=== PATIENT | male | born 1970 | race Caucasian/White ===

== ENCOUNTER 2022-01-24 09:30 | Outpatient (RCR) | payer OTHER, SELFPAY ==
[2022-01-10 09:57] VITALS: BP 137/76; PULSE 62; RESP 17; TEMP 36; BMI 49.4
--- NOTE | 2022-01-10 11:17 | HP.PCM_ITS ---
History of Present Illness Date of Service: 01/10/22 Chief Complaint: Left lower extremity ulcerations History of Wound: This is a 51-year-old morbidly obese male with multiple pre- existing medical problems. Presents with ulcerations on the medial aspect of his left calf, which have been present for approximately 3 to 4 weeks. They occurred spontaneously. He has previously suffered from ulcerations in his lower extremities, which occurred as a result of chronic venous insufficiency. Prior ulcerations have healed spontaneously. The patient has been using topical preparations such as chlorhexidine and Betadine. He has been treated by his primary care physician with courses of oral Keflex and tetracycline, which have been completed. He experiences swelling in both lower extremities, which is said to be worse at the end of each day. His swelling has occurred for many years. He sleeps on a flat mattress at night. He is active, and seeks exercise by means of swimming. He denies a history of thrombophlebitis. In recent months, the patient has lost approximately 65 pounds purposefully. 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 Recently, the patient's primary care physician increased his dose of Lasix in an attempt to address issues related to lower extremity swelling. FORMERLY [facility], [facility] Medical History Chronic venous insufficiency of lower extremity Diabetes mellitus Fatty liver History of gastrointestinal hemorrhage History of gout History of hemorrhoids History of vertigo Hyperpigmentation Hypertension Hypertriglyceridemia Hypothyroidism Left leg swelling Leg ulcer, left Lipodermatosclerosis of both lower extremities Morbid obesity with BMI of 45.0-49.9, adult Right leg swelling Venous ulcer of left leg Home Medications allopurinol 300 mg tablet 300 mg PO DAILY 01/10/22 [History Last Taken Unknown] clonidine HCl 0.2 mg tablet 0.2 mg PO BID 01/10/22 [History Last Taken Unknown] diltiazem HCl 360 mg PO/SL DAILY 01/10/22 [History Last Taken Unknown] fluoxetine 40 mg capsule (Prozac) 40 mg PO DAILY 01/10/22 [History Last Taken Unknown] furosemide 40 mg tablet (Lasix) 40 mg PO BID 01/10/22 [History Last Taken Unk nown] levothyroxine 25 mcg capsule 25 mcg PO DAILY 01/10/22 [History Last Taken Unknown] losartan 100 mg tablet 100 mg PO DAILY 01/10/22 [History Last Taken Unknown] metoprolol succinate 100 mg tablet,extended release 24 hr 100 mg PO 1XD 01/10/22 [History Last Taken Unknown] Allergy/AdvReac Type Severity Reaction Status Date / Time ibuprofen Allergy Other Verified 01/10/22 10:50 aripiprazole [From Abilify] AdvReac Other Verified 01/10/22 10:50 Vital Signs Vital Signs Vital Signs: 01/10/22 09:57 Temperature 96.8 F L Temperature Source Temporal Pulse Rate 62 Respiratory Rate 17 Blood Pressure 137/76 H Blood Pressure Mean 96 Blood Pressure Source Monitor Weight Weight: 395 lb 13.214 oz Body Mass Index (BMI) 49.4 Physical Exam Const alert, oriented x3, no apparent distress and well nourished Constitutional Narrative: The patient is morbidly obese. General Appearance: cooperative, comfortable, well kempt and well developed Orientation / Consciousness: awake, oriented to person, oriented to place and oriented to time Exam Limitations: no limitations HEENT normocephalic, head/scalp atraumatic and hearing grossly normal bilaterally Head and Scalp: normal to inspection, normocephalic and atraumatic External Ear: external ears normal Eyes PERRL and EOMs intact bilaterally General Eye: normal appearance of both eyes Resp normal respiratory effort, normal air movement, no retractions and no use of accessory muscles Effort and Inspection: able to speak in complete sentences GI GI Narrative: The abdomen is obese. Rectal Exam: deferred Extremity no calf tenderness General Extremity: Negative for clubbing or cyanosis Skin Wound Narrative: 2 superficial ulcerations are noted on the left medial calf. Dimensions are documented elsewhere. There is no sign of infection or cellulitis. There is a moderate amount of bioburden. Hyperpigmentation and lipodermatosclerosis are noted in the gaiter areas bilaterally, rather severe in nature. Mild swelling and edema are noted bilaterally in the lower extremities. Neuro oriented x3, CN's II-XII intact bilaterally and moves all extremities Sensorium / Orientation: awake, alert, oriented to person, oriented to place and oriented to time Psych Appearance: grossly normal and appropriate Attitude: calm Activity / Motor Behavior: appropriate eye contact Speech: normal speech Mood & Affect: euthymic mood Thought Process: normal thought process Thought Content: normal thought content Attention / Concentration: attention grossly intact Debridement Note Debridement Note Wound debrided: Left medial calf Laterality: Left Type of Debridement: Excisional debridement Anesthesia Used: 5% Lidocaine Gel Depth: Down to and including healthy tissue and in the subcutaneous layer Percentage of wound debrided: 100 Instrument Used: 7mm curette Tissue Removed: Bioburden Severity: Fat Layer Exposed Amount of bleeding with debridement: Mild Bleeding Controlled with: Compression and gauze Patient tolerated procedure: Patient tolerated procedure well Post-Debridement Measurements and Additional Note: Post-Debridement Measurements/Treatment - Nurse 1 - General Ulcer Assessment Start: 01/10/22 09:56 Freq: Status: Active Protocol: [employer] Activity Type Activity Date Activity User E-sign Co-sign Detail Recorded Client Recorded Date Recorded By Document 01/10/22 09:57 ML [id number] 01/10/22 10:22 ML Edit Result 01/10/22 09:57 ML (1) [id number] 01/10/22 10:31 ML (1) Height => 6 ft 3 in Weight => 395 lb 13.214 oz Weight in Pounds => 395.8 lbs Body Mass Index (BMI) => 49.4 BMI Classification => Obese BSA - Carline => 2.93 01/10/22 09:57 - Today's Visit Information Type of service Initial Visit Arrival Mode Ambulatory Transfer Assistance None Patient Requires Transmission-Based No Precautions Safety Precautions NA Height and Weight Height 6 ft 3 in Weight 395 lb 13.214 oz Weight in Pounds 395.8 lbs Body Mass Index (BMI) 49.4 BMI Classification Obese BSA - Carline 2.93 Vital Signs Temperature (97.8 F-99.1 F) 96.8 F L Temperature Source Temporal Pulse Rate (60-100) 62 Pulse Location Monitor Respiratory Rate (12-18) 17 Respiratory rate source Monitor Blood Pressure (90/60-120/80) 137/76 H Blood Pressure Mean 96 Source Monitor History Since Last Visit- (Skip if this is Patient's initial visit) Have you changed medications since your No last visit? Any new allergies or adverse reactions No Had a fall/change in ADL's that may No increase risk of falls Signs or symptoms of abuse and/or No neglect since last visit Have you been in the hospital since your No last visit? Has dressing in place as prescribed No Has compression in place as prescribed Yes Has offloadiing in place as prescribed N/A Experienced any changes in pain level or No management Left Footwear Regular Shoe Right Footwear Regular Shoe Pain Scale: 0-10 Numeric Is Patient Pain Free? Yes - Nurse 1 - General Ulcer Measurement Start: 01/10/22 09:56 Freq: Status: Active Protocol: Activity Type Activity Date Activity User E-sign Co-sign Detail Recorded Client Recorded Date Recorded By Document 01/10/22 09:57 ML [id number] 01/10/22 10:22 ML 01/10/22 09:57 Wound Center Nurse 1 #1 SUP LLE -Current Size (cm) - Length 6.8 -Current Size (cm) - Width 1 -Current Size (cm) - Depth 0.1 -Total Square Cm 6.8 -Exudate Amt Small -Exudate Type Serous -Wound Margin Distinct, Outline Attached -Granulation Amt Small (1-33%) -Granulation Quality Pale -Slough/Fibrin No -Necrosis Amt None Present (0 %) -Necrotic Tissue Type Adherent Slough -Texture (Mahnaz-wound Skin Appearance) Assessed -Moisture (Mahnaz-wound Skin Appearance) Assessed -Color (Mahnaz-wound Skin Appearance) Hemosiderin Staining -Temperature (Mahnaz-wound Skin No Abnormality Appearance) (Pt Warm) -Tenderness on Palpation (Mahnaz-wound No Skin Appearance) -Ulcer Cleansing Rinsed/ Irrigated with Saline -Foul Odor after Cleansing No -Anesthetic Used 4% Lidocaine Solution Right Calf (cm) 46.5 Right Ankle (cm) 25 Left Calf (cm) 47 Left Ankle (cm) 26 - Nurse 3 - General Ulcer D/C NN Start: 01/10/22 09:56 Freq: Status: Active Protocol: Activity Type Activity Date Activity User E-sign Co-sign Detail Recorded Client Recorded Date Recorded By Document 01/10/22 11:03 ML [id number] 01/10/22 11:04 ML 01/10/22 11:03 Wound Care Nurse 3 Right -Multi-Layered Wrap Application Multi-Layer Comp - Left ($) Left -Compression Wrap Unna Boot ($) ( single) Pain Scale: 0-10 Numeric Is Patient Pain Free? Yes Assessment/Plan Assessment/Plan (1) Leg ulcer, left: CODE(S): L97.929 - Non-pressure chronic ulcer of unspecified part of left lower leg with unspecified severity (2) Venous ulcer of left leg: CODE(S): I83.029 - Varicose veins of left lower extremity with ulcer of unspecified site; L97.929 - Non-pressure chronic ulcer of unspecified part of left lower leg with unspecified severity (3) Left leg swelling: CODE(S): M79.89 - Other specified soft tissue disorders (4) Right leg swelling: CODE(S): M79.89 - Other specified soft tissue disorders (5) Hyperpigmentation: CODE(S): L81.9 - Disorder of pigmentation, unspecified (6) Lipodermatosclerosis of both lower extremities: CODE(S): I83.11 - Varicose veins of right lower extremity with inflammation; I83.12 - Varicose veins of left lower extremity with inflammation (7) Morbid obesity with BMI of 45.0-49.9, adult: CODE(S): E66.01 - Morbid (severe) obesity due to excess calories; Z68.42 - Body mass index [BMI] 45.0-49.9, adult (8) Hypertension: CODE(S): I10 - Essential (primary) hypertension (9) Chronic venous insufficiency of lower extremity: CODE(S): I87.2 - Venous insufficiency (chronic) (peripheral) (10) Diabetes mellitus: CODE(S): E11.9 - Type 2 diabetes mellitus without complications (11) Hypothyroidism: CODE(S): E03.9 - Hypothyroidism, unspecified (12) Hypertriglyceridemia: CODE(S): E78.1 - Pure hyperglyceridemia (13) History of gout: CODE(S): Z87.39 - Personal history of other diseases of the musculoskeletal system and connective tissue (14) Fatty liver: CODE(S): K76.0 - Fatty (change of) liver, not elsewhere classified (15) History of vertigo: CODE(S): Z87.898 - Personal history of other specified conditions (16) History of gastrointestinal hemorrhage: CODE(S): Z87.19 - Personal history of other diseases of the digestive system (17) History of hemorrhoids: CODE(S): Z87.19 - Personal history of other diseases of the digestive system PLAN: Plan This is a 51-year-old male who is morbidly obese, and with a history of multiple pre-existing medical problems. He has a longstanding history of swelling and edema in his lower extremities, and has had prior episodes of spontaneous ulcerations in his lower extremities, thought to be secondary to chronic venous insufficiency. His current ulcerations have been present for approximately 3 to 4 weeks, located in the left medial calf. A lengthy discussion has been undertaken as to the conservative treatment measures appropriate to the patient's management. The patient sleeps on a flat mattress at night. This has been encouraged. Additionally, the patient has been advised to elevate his lower extremities is much as possible during daytime hours. Leg elevation is to be to heart level, or higher. Prolonged idle sitting has been discouraged. Activity has been encouraged. Weight loss has also been recommended. It is noted that the patient has voluntarily and purposely lost approximately 65 pounds in recent months. The patient has only occasional discomfort and pain in his lower extremities, and nonsteroidal anti-inflammatory medications have been advised. Compression is to be initiated by means of a 3M 2 layer compression wrap in the right lower extremity, which has no open wounds at this time. A multilayer Unna boot is to be applied to the left lower extremity. These compression wraps will be changed twice weekly. Patient is to return in 1 week for reassessment. Long-term lifestyle modification has been discussed, im plementing these measures as discussed above in an effort to prevent recurrence of ulcerations in his lower extremities. Total time: 59 minutes
[2022-01-13 13:06] VITALS: BP 136/75; PULSE 82; RESP 18; TEMP 35.9; BMI 49.4
[2022-01-17 09:32] VITALS: BP 157/71; PULSE 64; TEMP 36.6; BMI 49.4
--- NOTE | 2022-01-17 09:54 | PCM.WC.HP ---
History of Present Illness Date of Service: 01/17/22 Chief Complaint: Left lower extremity ulcerations History of Wound: This is a 51-year-old morbidly obese male with multiple pre-existing medical problems. Presents with ulcerations on the medial aspect of his left calf, which have been present for approximately 3 to 4 weeks. They occurred spontaneously. He has previously suffered from ulcerations in his lower extremities, which occurred as a result of chronic venous insufficiency. Prior ulcerations have healed spontaneously. The patient has been using topical preparations such as chlorhexidine and Betadine. He has been treated by his primary care physician with courses of oral Keflex and tetracycline, which have been completed. He experiences swelling in both lower extremities, which is said to be worse at the end of each day. His swelling has occurred for many years. He sleeps on a flat mattress at night. He is active, and seeks exercise by means of swimming. He denies a history of thrombophlebitis. In recent months, the patient has lost approximately 65 pounds purposefully. 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 Recently, the patient's primary care physician increased his dose of Lasix in an attempt to address issues related to lower extremity swelling. [facility] Medical History Chronic venous insufficiency of lower extremity Diabetes mellitus Fatty liver History of gastrointestinal hemorrhage History of gout History of hemorrhoids History of vertigo Hyperpigmentation Hypertension Hypertriglyceridemia Hypothyroidism Left leg swelling Leg ulcer, left Lipodermatosclerosis of both lower extremities Morbid obesity with BMI of 45.0-49.9, adult Right leg swelling Venous ulcer of left leg Home Medications allopurinol 300 mg tablet 300 mg PO DAILY 01/10/22 [History Last Taken Unknown] clonidine HCl 0.2 mg tablet 0.2 mg PO BID 01/10/22 [History Last Taken Unknown] diltiazem HCl 360 mg PO/SL DAILY 01/10/22 [History Last Taken Unknown] fluoxetine 40 mg capsule (Prozac) 40 mg PO DAILY 01/10/22 [History Last Taken Unknown] furosemide 40 mg tablet (Lasix) 40 mg PO BID 01/10/22 [History Last Taken Unknown] levothyroxine 25 mcg capsule 25 mcg PO DAILY 01/10/22 [History Last Taken Unknown] losartan 100 mg tablet 100 mg PO DAILY 01/10/22 [History Last Taken Unknown] metoprolol succinate 100 mg tablet,extended release 24 hr 100 mg PO 1XD 01/10/22 [History Last Taken Unknown] Allergy/AdvReac Type Severity Reaction Status Date / Time ibuprofen Allergy Other Verified 01/10/22 10:50 aripiprazole [From Abilify] AdvReac Other Verified 01/10/22 10:50 Vital Signs Vital Signs Vital Signs: 01/17/22 09:32 Temperature 97.8 F Temperature Source Temporal Pulse Rate 64 Blood Pressure 157/71 H Blood Pressure Mean 99 Blood Pressure Source Monitor Blood Pressure Position Semi-Fowlers Blood Pressure Location Right Arm Weight Weight: 395 lb 13.214 oz Body Mass Index (BMI) 49.4 Physical Exam Const alert, oriented x3, no apparent distress and well nourished Constitutional Narrative: The patient is morbidly obese. General Appearance: cooperative, comfortable, well kempt and well developed Orientation / Consciousness: awake, oriented to person, oriented to place and oriented to time Exam Limitations: no limitations HEENT normocephalic, head/scalp atraumatic and hearing grossly normal bilaterally Head and Scalp: normal to inspection, normocephalic and atraumatic External Ear: external ears normal Eyes PERRL and EOMs intact bilaterally General Eye: normal appearance of both eyes Resp normal respiratory effort, normal air movement, no retractions and no use of accessory muscles Effort and Inspection: able to speak in complete sentences GI GI Narrative: The abdomen is obese. Rectal Exam: deferred Extremity no calf tenderness General Extremity: Negative for clubbing or cyanosis Skin Wound Narrative: Two superficial ulcerations are noted on the left heath-medial calf. Dimensions are documented elsewhere. They are smaller than the last week. There is no sign of infection or cellulitis. There is a moderate amount of bioburden. Hyperpigmentation and lipodermatosclerosis are noted in the gaiter areas bilaterally, rather severe in nature. Mild swelling and edema are noted bilaterally in the lower extremities, though much improved within the last week. Neuro oriented x3, CN's II-XII intact bilaterally, moves all extremities and no focal motor deficits Sensorium / Orientation: awake, alert, oriented to person, oriented to place and oriented to time Psych Appearance: grossly normal and appropriate Attitude: calm Activity / Motor Behavior: appropriate eye contact Speech: normal speech Mood & Affect: euthymic mood Thought Process: normal thought process Thought Content: normal thought content Attention / Concentration: attention grossly intact Debridement Note Debridement Note Wound debrided: Left anteromedial calf Laterality: Left Type of Debridement: Excisional debridement Anesthesia Used: 5% Lidocaine Gel Depth: Down to and including healthy tissue and in the subcutaneous layer Percentage of wound debrided: 100 Instrument Used: 5mm curette Severity: Fat Layer Exposed Amount of bleeding with debridement: Mild Bleeding Controlled with: Compression and gauze Patient tolerated procedure: Patient tolerated procedure well Post-Debridement Measurements and Additional Note: Post-Debridement Measurements/Treatment - Nurse 1 - General Ulcer Assessment Start: 01/10/22 09:56 Freq: Status: Active Protocol: PathJump Activity Type Activity Date Activity User E-sign Co-sign Detail Recorded Client Recorded Date Recorded By Document 01/10/22 09:57 ML [id number] 01/10/22 10:22 ML Edit Result 01/10/22 09:57 ML (1) [id number] 01/10/22 10:31 ML Document 01/13/22 13:06 RB [id number] 01/13/22 13:11 RB Document 01/17/22 09:32 KR [id number] 01/17/22 09:33 KR (1) Height => 6 ft 3 in Weight => 395 lb 13.214 oz Weight in Pounds => 395.8 lbs Body Mass Index (BMI) => 49.4 BMI Classification => Obese BSA - Carline => 2.93 01/10/22 01/13/22 01/17/22 09:57 13:06 09:32 - Today's Visit Information Type of service Initial Visit Nurse-only Follow-up Visit Visit (Physician/[facility] ) Arrival Mode Ambulatory Ambulatory Ambulatory Transfer Assistance None None Patient Identification Verified (Name & Yes Yes ) Patient Requires Transmission-Based No No Precautions Safety Precautions NA Height and Weight Height 6 ft 3 in Weight 395 lb 13.214 oz Weight in Pounds 395.8 lbs Body Mass Index (BMI) 49.4 49.4 49.4 BMI Classification Obese Obese Obese BSA - Carline 2.93 Vital Signs Temperature (97.8 F-99.1 F) 96.8 F L 96.6 F L 97.8 F Temperature Source Temporal Temporal Temporal Pulse Rate (60-100) 62 82 64 Pulse Location Monitor Monitor Monitor Respiratory Rate (12-18) 17 18 Respiratory rate source Monitor Observation Blood Pressure (90/60-120/80) 137/76 H 136/75 H 157/71 H Blood Pressure Mean 96 95 99 Source Monitor Monitor Monitor Position Semi-Fowlers Semi-Fowlers Blood Pressure Location Left Arm Right Arm History Since Last Visit- (Skip if this is Patient's initial visit) Have you changed medications since your No No No last visit? Any new allergies or adverse reactions No No No Had a fall/change in ADL's that may No No No increase risk of falls Signs or symptoms of abuse and/or No No No neglect since last visit Have you been in the hospital since your No No No last visit? Has dressing in place as prescribed No Yes Yes Has compression in place as prescribed Yes Yes Yes Has offloadiing in place as prescribed N/A No N/A Experienced any changes in pain level or No No No management Left Footwear Regular Shoe Regular Shoe Right Footwear Regular Shoe Regular Shoe Pain Scale: 0-10 Numeric Is Patient Pain Free? Yes Yes Yes WC - Nurse 1 - General Ulcer Measurement Start: 01/10/22 09:56 Freq: Status: Active Protocol: Activity Type Activity Date Activity User E-sign Co-sign Detail Recorded Client Recorded Date Recorded By Document 01/10/22 09:57 ML [id number] 01/10/22 10:22 ML Document 01/17/22 09:32 KR [id number] 01/17/22 09:33 KR 01/10/22 01/17/22 09:57 09:32 Wound Center Nurse 1 #1 SUP LLE -Current Size (cm) - Length 6.8 5.5 -Current Size (cm) - Width 1 5.5 -Current Size (cm) - Depth 0.1 0.1 -Total Square Cm 6.8 30.25 -Exudate Amt Small Medium -Exudate Type Serous Serosanguineous -Wound Margin Distinct, Distinct, Outline Outline Attached Attached -Granulation Amt Small (1-33%) Large (67-100%) -Granulation Quality Pale Red -Slough/Fibrin No -Necrosis Amt None Present (0 None Present (0 %) %) -Necrotic Tissue Type Adherent Slough -Texture (Mahnaz-wound Skin Appearance) Assessed Assessed, Scarring -Moisture (Mahnaz-wound Skin Appearance) Assessed No Abnormality, Assessed -Color (Mahnaz-wound Skin Appearance) Hemosiderin No Abnormality, Staining Assessed -Temperature (Mahnaz-wound Skin No Abnormality No Abnormality Appearance) (Pt Warm) (Pt Warm) -Tenderness on Palpation (Mahnaz-wound No No Skin Appearance) -Ulcer Cleansing Rinsed/ Soap and Water Irrigated with Saline -Foul Odor after Cleansing No No -Anesthetic Used 4% Lidocaine 5% Lidocaine Solution Gel Right Calf (cm) 46.5 45 Right Ankle (cm) 25 25.5 Left Calf (cm) 47 46 Left Ankle (cm) 26 25.5 WC - Nurse 2 - General Ulcer CM Notes Start: 01/10/22 09:56 Freq: Status: Active Protocol: Activity Type Activity Date Activity User E-sign Co-sign Detail Recorded Client Recorded Date Recorded By Document 01/10/22 11:17 PL [id number] 01/10/22 11:19 PL 01/10/22 11:17 Wound Center Nurse 2 #1 SUP LLE -Time 10:33 -Correct Patient Yes -Correct Side, Site, Position Yes -Correct Procedure Yes -Procedure Performed Yes -Type of Procedure Debridement -Clinical Debridement Subcutaneous -Tissue Removed Subcutaneous -Post Debridement (cm) - Length 6.8 -Post Debridement (cm) - Width 1.0 -Post Debridement (cm) - Depth 0.1 -Total Square (Post) (cm) 6.80 -Area of Debridement (cm) - Length 6.8 -Area of Debridement (cm) - Width 1.0 -Total Square (Area) (cm) 6.80 -Tunneling No -Undermining/Tunneling No -Circular Undermining No -Wound/Ulcer Outcome Not Healed -Ulcer Cleansing Rinsed/ Irrigated with Saline -Foul Odor after Cleansing No -Bioengineered Tissue No -Bleeding Controlled with Pressure -Treatment Response Procedure Tolerated Well -Debridement - Subq, 1st 20sq cm Yes Pain Scale: 0-10 Numeric Is Patient Pain Free? Yes - Nurse 3 - General Ulcer D/C NN Start: 01/10/22 09:56 Freq: Status: Active Protocol: Activity Type Activity Date Activity User E-sign Co-sign Detail Recorded Client Recorded Date Recorded By Document 01/10/22 11:03 ML [id number] 01/10/22 11:04 ML Edit Result 01/10/22 11:03 ML (1) [id number] 01/11/22 07:25 PL Document 01/13/22 13:06 RB [id number] 01/13/22 13:11 RB (1) Left - Multi-Layered Wrap Application => Unna Boot - Left ( => $) - Compression Wrap Unna Boot ($) ( => single) => 01/10/22 01/13/22 11:03 13:06 Wound Care Nurse 3 #1 SUP LLE -Primary Dressing Applied Optilok 6.5x10 -Optilok 6.5x10 1 Right -Multi-Layered Wrap Application Multi-Layer Multi-Layer Comp - Left ($) Comp - Right ($ ) Left -Multi-Layered Wrap Application Unna Boot - Unna Boot - Left ($) Left ($) Treatment Response Procedure Tolerated Well Vital Signs Temperature (97.8 F-99.1 F) 96.6 F L Temperature Source Temporal Pulse Rate (60-100) 82 Pulse Location Monitor Respiratory Rate (12-18) 18 Respiratory rate source Observation Blood Pressure (90/60-120/80) 136/75 H Blood Pressure Mean 95 Source Monitor Position Semi-Fowlers Blood Pressure Location Left Arm Pain Scale: 0-10 Numeric Is Patient Pain Free? Yes Yes WC - Visit Discharge Discharge Condition Stable Ambulatory Status Ambulatory Transportation Private Auto Medication Reconcilliation completed & No provided to patient/care provider Clinical Summary of Care Provided Yes Assessment/Plan Assessment/Plan (1) Leg ulcer, left: CODE(S): L97.929 - Non-pressure chronic ulcer of unspecified part of left lower leg with unspecified severity (2) Venous ulcer of left leg: CODE(S): I83.029 - Varicose veins of left lower extremity with ulcer of unspecified site; L97.929 - Non-pressure chronic ulcer of unspecified part of left lower leg with unspecified severity (3) Left leg swelling: CODE(S): M79.89 - Other specified soft tissue disorders (4) Right leg swelling: CODE(S): M79.89 - Other specified soft tissue disorders (5) Hyperpigmentation: CODE(S): L81.9 - Disorder of pigmentation, unspecified (6) Lipodermatosclerosis of both lower extremities: CODE(S): I83.11 - Varicose veins of right lower extremity with inflammation; I83.12 - Varicose veins of left lower extremity with inflammation (7) Morbid obesity with BMI of 45.0-49.9, adult: CODE(S): E66.01 - Morbid (severe) obesity due to excess calories; Z68.42 - Body mass index [BMI] 45.0-49.9, adult (8) Hypertension: CODE(S): I10 - Essential (primary) hypertension (9) Chronic venous insufficiency of lower extremity: CODE(S): I87.2 - Venous insufficiency (chronic) (peripheral) (10) Diabetes mellitus: CODE(S): E11.9 - Type 2 diabetes mellitus without complications (11) Hypothyroidism: CODE(S): E03.9 - Hypothyroidism, unspecified (12) Hypertriglyceridemia: CODE(S): E78.1 - Pure hyperglyceridemia (13) History of gout: CODE(S): Z87.39 - Personal history of other diseases of the musculoskeletal system and connective tissue (14) Fatty liver: CODE(S): K76.0 - Fatty (change of) liver, not elsewhere classified (15) History of vertigo: CODE(S): Z87.898 - Personal history of other specified conditions (16) History of gastrointestinal hemorrhage: CODE(S): Z87.19 - Personal history of other diseases of the digestive system (17) History of hemorrhoids: CODE(S): Z87.19 - Personal history of other diseases of the digestive system PLAN: Plan This is a 51-year-old male who is morbidly obese, and with a history of multiple pre-existing medical problems. He has a longstanding history of swelling and edema in his lower extremities, and has had prior episodes of spontaneous ulcerations in his lower extremities, thought to be secondary to chronic venous insufficiency. His current ulcerations have been present for approximately 3 to 4 weeks, located in the left medial calf. A lengthy discussion has been undertaken as to the conservative treatment measures appropriate to the patient's management. The patient sleeps on a flat mattress at night. This has been encouraged. Additionally, the patient has been advised to elevate his lower extremities is much as possible during daytime hours. Leg elevation is to be to heart level, or higher. Prolonged idle sitting has been discouraged. Activity has been encouraged. Weight loss has also been recommended. It is noted that the patient has voluntarily and purposely lost approximately 65 pounds in recent months. The patient has only occasional discomfort and pain in his lower extremities, and nonsteroidal anti-inflammatory medications have been advised. Compression is to be continued by means of a 3M 2 layer compression wrap in the right lower extremity, which has no open wounds at this time. A multilayer Unna boot is to be applied to the left lower extremity. These compression wraps will be changed twice weekly. The patient is to return in 1 week for reassessment. Long-term lifestyle modification has been discussed, implementing these measures as discussed above in an effort to prevent recurrence of ulcerations in his lower extremities. Long-term compression options have been discussed, and the patient informs that he has knee-high graduated compression stockings at home which are 30 to 40 mmHg compression. He has several pairs which are still in the box, unused. He has been advised to bring these to his next appointment where appropriate sizing can be confirmed, and with confirmation of the appropriate degree of compression. Ultimately, once his left lower extremity ulcerations have healed, a long-term means of compression will be required. Total time: 29 minutes
[2022-01-20 13:43] VITALS: TEMP 36.1; BMI 49.4
[2022-01-24 09:36] VITALS: BP 177/86; PULSE 66; TEMP 36.1; BMI 49.4
--- NOTE | 2022-01-24 13:15 | PCM.WC.HP ---
History of Present Illness Date of Service: 01/24/22 Chief Complaint: Left lower extremity ulcerations History of Wound: This is a 51-year-old morbidly obese male with multiple pre-existing medical problems. Presented with ulcerations on the medial aspect of his left calf, which had been present for approximately 3 to 4 weeks. They occurred spontaneously. He has previously suffered from ulcerations in his lower extremities, which occurred as a result of chronic venous insufficiency. Prior ulcerations have healed spontaneously. The patient had been using topical preparations such as chlorhexidine and Betadine. He had been treated by his primary care physician with courses of oral Keflex and tetracycline, which have been completed. He experiences swelling in both lower extremities, which is said to be worse at the end of each day. His swelling has occurred for many years. He sleeps on a flat mattress at night. He is active, and seeks exercise by means of swimming. He denies a history of thrombophlebitis. In recent months, the patient has lost approximately 65 pounds purposefully. 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 Recently, the patient's primary care physician increased his dose of Lasix in an attempt to address issues related to lower extremity swelling. [facility] Medical History Chronic venous insufficiency of lower extremity Diabetes mellitus Fatty liver History of gastrointestinal hemorrhage History of gout History of hemorrhoids History of vertigo Hyperpigmentation Hypertension Hypertriglyceridemia Hypothyroidism Left leg swelling Leg ulcer, left Lipodermatosclerosis of both lower extremities Morbid obesity with BMI of 45.0-49.9, adult Right leg swelling Venous ulcer of left leg Home Medications allopurinol 300 mg tablet 300 mg PO DAILY 01/10/22 [History Last Taken Unknown] clonidine HCl 0.2 mg tablet 0.2 mg PO BID 01/10/22 [History Last Taken Unknown] diltiazem HCl 360 mg PO/SL DAILY 01/10/22 [History Last Taken Unknown] fluoxetine 40 mg capsule (Prozac) 40 mg PO DAILY 01/10/22 [History Last Taken Unknown] furosemide 40 mg tablet (Lasix) 40 mg PO BID 01/10/22 [History Last Taken Unknown] levothyroxine 25 mcg capsule 25 mcg PO DAILY 01/10/22 [History Last Taken Unknown] losartan 100 mg tablet 100 mg PO DAILY 01/10/22 [History Last Taken Unknown] metoprolol succinate 100 mg tablet,extended release 24 hr 100 mg PO 1XD 01/10/22 [History Last Taken Unknown] Allergy/AdvReac Type Severity Reaction Status Date / Time ibuprofen Allergy Other Verified 01/10/22 10:50 aripiprazole [From Abilify] AdvReac Other Verified 01/10/22 10:50 Vital Signs Vital Signs Vital Signs: 01/24/22 09:36 Temperature 97.0 F L Temperature Source Temporal Pulse Rate 66 Blood Pressure 177/86 H Blood Pressure Mean 116 Blood Pressure Source Monitor Blood Pressure Position Sitting Blood Pressure Location Right Arm Weight Weight: 395 lb 13.214 oz Body Mass Index (BMI) 49.4 Physical Exam Const alert, oriented x3, no apparent distress and well nourished Constitutional Narrative: The patient is morbidly obese. General Appearance: cooperative, comfortable, well kempt and well developed Orientation / Consciousness: awake, oriented to person, oriented to place and oriented to time Exam Limitations: no limitations HEENT normocephalic, head/scalp atraumatic and hearing grossly normal bilaterally Head and Scalp: normal to inspection, normocephalic and atraumatic External Ear: external ears normal Eyes PERRL and EOMs intact bilaterally General Eye: normal appearance of both eyes Resp normal respiratory effort, normal air movement, no retractions and no use of accessory muscles Effort and Inspection: able to speak in complete sentences GI GI Narrative: The abdomen is obese. Rectal Exam: deferred Extremity no calf tenderness General Extremity: Negative for clubbing or cyanosis Skin Wound Narrative: Only 1 very small ulceration is noted on the left pretibial area. Dimensions are documented elsewhere. There is no sign of infection or cellulitis. There is a small amount of bioburden. Hyperpigmentation and lipodermatosclerosis are noted in the gaiter areas bilaterally, rather severe in nature. The swelling and edema appear to be resolved, much improved as result of the previously implemented measures. Neuro oriented x3, CN's II-XII intact bilaterally, moves all extremities and no focal motor deficits Sensorium / Orientation: awake, alert, oriented to person, oriented to place and oriented to time Psych Appearance: grossly normal and appropriate Attitude: calm Activity / Motor Behavior: appropriate eye contact Speech: normal speech Mood & Affect: euthymic mood Thought Process: normal thought process Thought Content: normal thought content Attention / Concentration: attention grossly intact Debridement Note Debridement Note Wound debrided: Left pretibial ulceration Laterality: Left Type of Debridement: Excisional debridement Anesthesia Used: 5% Lidocaine Gel Depth: Down to and including healthy tissue and in the subcutaneous layer Percentage of wound debrided: 100 Instrument Used: 5mm curette Tissue Removed: Bioburden Severity: Fat Layer Exposed Amount of bleeding with debridement: Mild Bleeding Controlled with: Compression and gauze Patient tolerated procedure: Patient tolerated procedure well Post-Debridement Measurements and Additional Note: Post-Debridement Measurements/Treatment - Nurse 1 - General Ulcer Assessment Start: 01/10/22 09:56 Freq: Status: Active Protocol: .FarmDropAlexi Activity Type Activity Date Activity User E-sign Co-sign Detail Recorded Client Recorded Date Recorded By Document 01/10/22 09:57 ML [id number] 01/10/22 10:22 ML Edit Result 01/10/22 09:57 ML (1) [id number] 01/10/22 10:31 ML Document 01/13/22 13:06 RB [id number] 01/13/22 13:11 RB Document 01/17/22 09:32 KR [id number] 01/17/22 09:33 KR Document 01/20/22 13:43 AK [id number] 01/20/22 13:44 AK Document 01/24/22 09:36 KR [id number] 01/24/22 09:42 KR (1) Height => 6 ft 3 in Weight => 395 lb 13.214 oz Weight in Pounds => 395.8 lbs Body Mass Index (BMI) => 49.4 BMI Classification => Obese BSA - [place] => 2.93 01/10/22 01/13/22 01/17/22 09:57 13:06 09:32 - Today's Visit Information Type of service Initial Visit Nurse-only Follow-up Visit Visit (Physician/DOCUMENTATION SUPERVISOR ) Arrival Mode Ambulatory Ambulatory Ambulatory Transfer Assistance None None Patient Identification Verified (Name & Yes Yes ) Patient Requires Transmission-Based No No Precautions Safety Precautions NA Height and Weight Height 6 ft 3 in Weight 395 lb 13.214 oz Weight in Pounds 395.8 lbs Body Mass Index (BMI) 49.4 49.4 49.4 BMI Classification Obese Obese Obese BSA - [place] 2.93 Vital Signs Temperature (97.8 F-99.1 F) 96.8 F L 96.6 F L 97.8 F Temperature Source Temporal Temporal Temporal Pulse Rate (60-100) 62 82 64 Pulse Location Monitor Monitor Monitor Respiratory Rate (12-18) 17 18 Respiratory rate source Monitor Observation Blood Pressure (90/60-120/80) 137/76 H 136/75 H 157/71 H Blood Pressure Mean 96 95 99 Source Monitor Monitor Monitor Position Semi-Fowlers Semi-Fowlers Blood Pressure Location Left Arm Right Arm History Since Last Visit- (Skip if this is Patient's initial visit) Have you changed medications since your No No No last visit? Any new allergies or adverse reactions No No No Had a fall/change in ADL's that may No No No increase risk of falls Signs or symptoms of abuse and/or No No No neglect since last visit Have you been in the hospital since your No No No last visit? Has dressing in place as prescribed No Yes Yes Has compression in place as prescribed Yes Yes Yes Has offloadiing in place as prescribed N/A No N/A Experienced any changes in pain level or No No No management Left Footwear Regular Shoe Regular Shoe Right Footwear Regular Shoe Regular Shoe Pain Scale: 0-10 Numeric Is Patient Pain Free? Yes Yes Yes 01/20/22 01/24/22 13:43 09:36 WC - Today's Visit Information Type of service Nurse-only Follow-up Visit Visit (Physician/DOCUMENTATION SUPERVISOR ) Arrival Mode Ambulatory Ambulatory Transfer Assistance Patient Identification Verified (Name & Yes Yes ) Patient Requires Transmission-Based No Precautions Safety Precautions NA Height and Weight Height Weight Weight in Pounds Body Mass Index (BMI) 49.4 49.4 BMI Classification Obese Obese BSA - [place] Vital Signs Temperature (97.8 F-99.1 F) 96.9 F L 97.0 F L Temperature Source Temporal Temporal Pulse Rate (60-100) 66 Pulse Location Monitor Respiratory Rate (12-18) Respiratory rate source Blood Pressure (90/60-120/80) 177/86 H Blood Pressure Mean 116 Source Monitor Position Sitting Blood Pressure Location Right Arm History Since Last Visit- (Skip if this is Patient's initial visit) Have you changed medications since your No No last visit? Any new allergies or adverse reactions No No Had a fall/change in ADL's that may No No increase risk of falls Signs or symptoms of abuse and/or No No neglect since last visit Have you been in the hospital since your No No last visit? Has dressing in place as prescribed Yes Yes Has compression in place as prescribed Yes Yes Has offloadiing in place as prescribed N/A N/A Experienced any changes in pain level or No No management Left Footwear Regular Shoe Regular Shoe Right Footwear Regular Shoe Regular Shoe Pain Scale: 0-10 Numeric Is Patient Pain Free? Yes Yes WC - Nurse 1 - General Ulcer Measurement Start: 01/10/22 09:56 Freq: Status: Active Protocol: Activity Type Activity Date Activity User E-sign Co-sign Detail Recorded Client Recorded Date Recorded By Document 01/10/22 09:57 ML [id number] 01/10/22 10:22 ML Document 01/17/22 09:32 KR [id number] 01/17/22 09:33 KR Document 01/24/22 09:36 KR [id number] 01/24/22 09:42 KR 01/10/22 01/17/22 01/24/22 09:57 09:32 09:36 Wound Center Nurse 1 #1 SUP LLE -Current Size (cm) - Length 6.8 5.5 0.4 -Current Size (cm) - Width 1 5.5 0.4 -Current Size (cm) - Depth 0.1 0.1 0.1 -Total Square Cm 6.8 30.25 0.16 -Exudate Amt Small Medium -Exudate Type Serous Serosanguineous -Wound Margin Distinct, Distinct, Distinct, Outline Outline Outline Attached Attached Attached -Granulation Amt Small (1-33%) Large (67-100%) Medium (34-66%) -Granulation Quality Pale Red [place] -Slough/Fibrin No -Necrosis Amt None Present (0 None Present (0 None Present (0 %) %) %) -Necrotic Tissue Type Adherent Slough -Texture (Mahnaz-wound Skin Appearance) Assessed Assessed, Assessed, Scarring Scarring -Moisture (Mahnaz-wound Skin Appearance) Assessed No Abnormality, No Abnormality, Assessed Assessed -Color (Mahnaz-wound Skin Appearance) Hemosiderin No Abnormality, No Abnormality, Staining Assessed Assessed -Temperature (Mahnaz-wound Skin No Abnormality No Abnormality No Abnormality Appearance) (Pt Warm) (Pt Warm) (Pt Warm) -Tenderness on Palpation (Mahnaz-wound No No No Skin Appearance) -Ulcer Cleansing Rinsed/ Soap and Water Rinsed/ Irrigated with Irrigated with Saline Saline -Foul Odor after Cleansing No No No -Anesthetic Used 4% Lidocaine 5% Lidocaine 5% Lidocaine Solution Gel Gel Right Calf (cm) 46.5 45 51.2 Right Ankle (cm) 25 25.5 28 Left Calf (cm) 47 46 51.3 Left Ankle (cm) 26 25.5 27 WC - Nurse 2 - General Ulcer CM Notes Start: 01/10/22 09:56 Freq: Status: Active Protocol: Activity Type Activity Date Activity User E-sign Co-sign Detail Recorded Client Recorded Date Recorded By Document 01/10/22 11:17 PL [id number] 01/10/22 11:19 PL Document 01/17/22 10:09 PL [id number] 01/17/22 10:10 PL Document 01/24/22 10:03 MW [id number] 01/24/22 10:07 MW 01/10/22 01/17/22 01/24/22 11:17 10:09 10:03 Wound Center Nurse 2 #1 SUP LLE -Time 10:33 09:44 10:04 -Correct Patient Yes Yes Yes -Correct Side, Site, Position Yes Yes Yes -Correct Procedure Yes Yes Yes -Procedure Performed Yes Yes Yes -Type of Procedure Debridement Debridement Debridement -Clinical Debridement Subcutaneous Subcutaneous Subcutaneous -Tissue Removed Subcutaneous Subcutaneous Subcutaneous -Post Debridement (cm) - Length 6.8 5.5 0.3 -Post Debridement (cm) - Width 1.0 1.0 0.3 -Post Debridement (cm) - Depth 0.1 0.1 0.1 -Total Square (Post) (cm) 6.80 5.50 0.09 -Area of Debridement (cm) - Length 6.8 5.5 0.3 -Area of Debridement (cm) - Width 1.0 1.0 0.3 -Total Square (Area) (cm) 6.80 5.50 0.09 -Tunneling No No No -Undermining/Tunneling No No No -Circular Undermining No No No -Wound/Ulcer Outcome Not Healed Not Healed Not Healed -Ulcer Cleansing Rinsed/ Rinsed/ Rinsed/ Irrigated with Irrigated with Irrigated with Saline Saline Saline -Foul Odor after Cleansing No No No -Bioengineered Tissue No No No -Bleeding Controlled with Pressure Pressure Pressure -Treatment Response Procedure Procedure Procedure Tolerated Well Tolerated Well Tolerated Well -Offloading No -Debridement - Subq, 1st 20sq cm Yes Yes Yes Pain Scale: 0-10 Numeric Is Patient Pain Free? Yes Yes Yes WC - Nurse 3 - General Ulcer D/C NN Start: 01/10/22 09:56 Freq: Status: Active Protocol: Activity Type Activity Date Activity User E-sign Co-sign Detail Recorded Client Recorded Date Recorded By Document 01/10/22 11:03 ML [id number] 01/10/22 11:04 ML Edit Result 01/10/22 11:03 ML (1) [id number] 01/11/22 07:25 PL Document 01/13/22 13:06 RB [id number] 01/13/22 13:11 RB Document 01/17/22 10:31 KR [id number] 01/17/22 10:32 KR Document 01/20/22 13:43 AK [id number] 01/20/22 13:44 AK Document 01/24/22 10:21 DL [id number] 01/24/22 10:22 DL (1) Left - Multi-Layered Wrap Application => Unna Boot - Left ( => $) - Compression Wrap Unna Boot ($) ( => single) => 01/10/22 01/13/22 01/17/22 11:03 13:06 10:31 Wound Care Nurse 3 #1 SUP LLE -Ulcer Cleansing -Foul Odor after Cleansing -Primary Dressing Applied Optilok 6.5x10 -Primary Dressing Covered/Secured with -Other Covering -Optilok 6.5x10 1 Right -Multi-Layered Wrap Application Multi-Layer Multi-Layer Unna Boot - Comp - Left ($) Comp - Right ($ Right ($) ) -Stockings Left -Lotion applied to leg before compression wrap -Multi-Layered Wrap Application Unna Boot - Unna Boot - Multi-Layer Left ($) Left ($) Comp - Left ($) -Stockings Treatment Response Procedure Tolerated Well Vital Signs Temperature (97.8 F-99.1 F) 96.6 F L Temperature Source Temporal Pulse Rate (60-100) 82 Pulse Location Monitor Respiratory Rate (12-18) 18 Respiratory rate source Observation Blood Pressure (90/60-120/80) 136/75 H Blood Pressure Mean 95 Source Monitor Position Semi-Fowlers Blood Pressure Location Left Arm Pain Scale: 0-10 Numeric Is Patient Pain Free? Yes Yes Yes WC - Visit Discharge Discharge Condition Stable Stable Ambulatory Status Ambulatory Ambulatory Transportation [employer] Medication Reconcilliation completed & No provided to patient/care provider Clinical Summary of Care Provided Yes 01/20/22 01/24/22 13:43 10:21 Wound Care Nurse 3 #1 SUP LLE -Ulcer Cleansing Rinsed/ Irrigated with Saline -Foul Odor after Cleansing No -Primary Dressing Applied C Hydrogel ($), NonAdherent Contact Layer -Primary Dressing Covered/Secured with Dry Gauze & Roll Gauze, Secured with Tape -Other Covering Stockings -Optilok 6.5x10 Right -Multi-Layered Wrap Application Unna Boot - Right ($) -Stockings Yes Left -Lotion applied to leg before No compression wrap -Multi-Layered Wrap Application Unna Boot - Left ($) -Stockings Yes Treatment Response Procedure Tolerated Well Vital Signs Temperature (97.8 F-99.1 F) 96.9 F L Temperature Source Temporal Pulse Rate (60-100) Pulse Location Respiratory Rate (12-18) Respiratory rate source Blood Pressure (90/60-120/80) Blood Pressure Mean Source Position Blood Pressure Location Pain Scale: 0-10 Numeric Is Patient Pain Free? Yes Yes WC - Visit Discharge Discharge Condition Stable Stable Ambulatory Status Ambulatory Ambulatory Transportation [facility] [employer] Medication Reconcilliation completed & Yes provided to patient/care provider Clinical Summary of Care Provided Yes Assessment/Plan Assessment/Plan (1) Leg ulcer, left: CODE(S): L97.929 - Non-pressure chronic ulcer of unspecified part of left lower leg with unspecified severity (2) Venous ulcer of left leg: CODE(S): I83.029 - Varicose veins of left lower extremity with ulcer of unspecified site; L97.929 - Non-pressure chronic ulcer of unspecified part of left lower leg with unspecified severity (3) Left leg swelling: CODE(S): M79.89 - Other specified soft tissue disorders (4) Right leg swelling: CODE(S): M79.89 - Other specified soft tissue disorders (5) Hyperpigmentation: CODE(S): L81.9 - Disorder of pigmentation, unspecified (6) Lipodermatosclerosis of both lower extremities: CODE(S): I83.11 - Varicose veins of right lower extremity with inflammation; I83.12 - Varicose veins of left lower extremity with inflammation (7) Morbid obesity with BMI of 45.0-49.9, adult: CODE(S): E66.01 - Morbid (severe) obesity due to excess calories; Z68.42 - Body mass index [BMI] 45.0-49.9, adult (8) Hypertension: CODE(S): I10 - Essential (primary) hypertension (9) Chronic venous insufficiency of lower extremity: CODE(S): I87.2 - Venous insufficiency (chronic) (peripheral) (10) Diabetes mellitus: CODE(S): E11.9 - Type 2 diabetes mellitus without complications (11) Hypothyroidism: CODE(S): E03.9 - Hypothyroidism, unspecified (12) Hypertriglyceridemia: CODE(S): E78.1 - Pure hyperglyceridemia (13) History of gout: CODE(S): Z87.39 - Personal history of other diseases of the musculoskeletal system and connective tissue (14) Fatty liver: CODE(S): K76.0 - Fatty (change of) liver, not elsewhere classified (15) History of vertigo: CODE(S): Z87.898 - Personal history of other specified conditions (16) History of gastrointestinal hemorrhage: CODE(S): Z87.19 - Personal history of other diseases of the digestive system (17) History of hemorrhoids: CODE(S): Z87.19 - Personal history of other diseases of the digestive system PLAN: Plan This is a 51-year-old male who is morbidly obese, and with a history of multiple pre-existing medical problems. He has a longstanding history of swelling and edema in his lower extremities, and has had prior episodes of spontaneous ulcerations in his lower extremities, thought to be secondary to chronic venous insufficiency. His ulcerations had been present for approximately 3 to 4 weeks, located in the left heath-medial calf. A lengthy discussion has been undertaken as to the conservative treatment measures appropriate to the patient's management. The patient sleeps on a flat mattress at night. This has been encouraged. Additionally, the patient has been advised to elevate his lower extremities is much as possible during daytime hours. Leg elevation is to be to heart level, or higher. Prolonged idle sitting has been discouraged. Activity has been encouraged. Weight loss has also been recommended. It is noted that the patient has voluntarily and purposely lost approximately 65 pounds in recent months. The patient hasl discomfort and pain in his lower extremities, and nonsteroidal anti-inflammatory medications have been advised. Compression is to be continued by means of graduated compression stockings of 20 to 30 mmHg compression, knee-high length. The patient has these in his possession, and has brought them today to confirm adequacy. The compression stockings are to be worn daily. Long-term lifestyle modification has been discussed, implementing these measures as discussed above in an effort to prevent recurrence of ulcerations in his lower extremities. We are to implement use of collagen hydrogel topically, with Adaptic, which will be applied topically on a daily basis. The patient is return in 2 weeks for reevaluation. Ultimately, once his left lower extremity ulcerations have healed, a long-term means of compression will be required. It is anticipated that the patient may also be a candidate for venous ablation procedures in the future, based upon his presenting symptoms and manifestations. Total time: 28 minutes
== END 2022-02-03 23:59 | disposition home or self-care (01) ==
LOC: WC 09:30
PROVIDERS: PCP Internal Medicine; Visit Provider Surgery
DX: E11.621 Type 2 diabetes mellitus with foot ulcer (principal); L97.222 Non-pressure chronic ulcer of left calf with fat layer exposed; I83.022 Varicose veins of left lower extremity with ulcer of calf; E11.59 Type 2 diabetes mellitus with other circulatory complications; E66.01 Morbid (severe) obesity due to excess calories; Z68.42 Body mass index [BMI] 45.0-49.9, adult; K76.0 Fatty (change of) liver, not elsewhere classified; M10.9 Gout, unspecified; E78.1 Pure hyperglyceridemia; I87.2 Venous insufficiency (chronic) (peripheral); E03.9 Hypothyroidism, unspecified; I10 Essential (primary) hypertension; M79.89 Other specified soft tissue disorders
CPT/HCPCS: 11042; 29580; 29581; 99213; G0463

== ENCOUNTER 2022-02-21 09:30 | Outpatient (RCR) | payer OTHER, SELFPAY ==
[2022-02-04 00:08] VITALS: BP 177/86; PULSE 66; RESP 18; TEMP 36.1; BMI 49.4
[2022-02-07 09:28] VITALS: BP 183/76; PULSE 90; TEMP 36.3; BMI 49.4
--- NOTE | 2022-02-07 12:59 | HP.PCM_ITS ---
History of Present Illness Date of Service: 02/07/22 Chief Complaint: Left lower extremity ulcerations History of Wound: This is a 51-year-old morbidly obese male with multiple pre- existing medical problems. He presented with ulcerations on the medial aspect of his left calf, which had been present for approximately 3 to 4 weeks. They occurred spontaneously. He has previously suffered from ulcerations in his lower extremities, which occurred as a result of chronic venous insufficiency. Prior ulcerations have healed spontaneously. The patient had been using topical preparations such as chlorhexidine and Betadine. He had been treated by his primary care physician with courses of oral Keflex and tetracycline, which have been completed. He experiences swelling in both lower extremities, which is said to be worse at the end of each day. His swelling has occurred for many years. He sleeps on a flat mattress at night. He is active, and seeks exercise by means of swimming. He denies a history of thrombophlebitis. In recent months, the patient has lost approximately 65 pounds purposefully. 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 Recently, the patient's primary care physician increased his dose of Lasix in an attempt to address issues related to lower extremity swelling. [facility] Medical History Chronic venous insufficiency of lower extremity Diabetes mellitus Fatty liver History of gastrointestinal hemorrhage History of gout History of hemorrhoids History of vertigo Hyperpigmentation Hypertension Hypertriglyceridemia Hypothyroidism Left leg swelling Leg ulcer, left Lipodermatosclerosis of both lower extremities Morbid obesity with BMI of 45.0-49.9, adult Right leg swelling Venous ulcer of left leg Home Medications allopurinol 300 mg tablet 300 mg PO DAILY 01/10/22 [History Last Taken Unknown] clonidine HCl 0.2 mg tablet 0.2 mg PO BID 01/10/22 [History Last Taken Unknown] diltiazem HCl 360 mg PO/SL DAILY 01/10/22 [History Last Taken Unknown] fluoxetine 40 mg capsule (Prozac) 40 mg PO DAILY 01/10/22 [History Last Taken Unknown] furosemide 40 mg tablet (Lasix) 40 mg PO BID 01/10/22 [History Last Taken Unknown] levothyroxine 25 mcg capsule 25 mcg PO DAILY 01/10/22 [History Last Taken Unknown] losartan 100 mg tablet 100 mg PO DAILY 01/10/22 [History Last Taken Unknown] metoprolol succinate 100 mg tablet,extended release 24 hr 100 mg PO 1XD 01/10/22 [History Last Taken Unknown] Allergy/AdvReac Type Severity Reaction Status Date / Time ibuprofen Allergy Other Verified 01/10/22 10:50 aripiprazole [From Abilify] AdvReac Other Verified 01/10/22 10:50 Vital Signs Vital Signs Vital Signs: 02/07/22 09:28 Temperature 97.4 F L Temperature Source Temporal Pulse Rate 90 Blood Pressure 183/76 H Blood Pressure Mean 111 Blood Pressure Source Monitor Blood Pressure Position Sitting Blood Pressure Location Left Arm Weight Weight: 395 lb 13.214 oz Body Mass Index (BMI) 49.4 Physical Exam Const alert, oriented x3, no apparent distress and well nourished Constitutional Narrative: The patient is morbidly obese. General Appearance: cooperative, comfortable, well kempt and well developed Orientation / Consciousness: awake, oriented to person, oriented to place and oriented to time Exam Limitations: no limitations HEENT normocephalic, head/scalp atraumatic and hearing grossly normal bilaterally Head and Scalp: normal to inspection, normocephalic and atraumatic External Ear: external ears normal Eyes PERRL and EOMs intact bilaterally General Eye: normal appearance of both eyes Resp normal respiratory effort, normal air movement, no retractions and no use of accessory muscles Effort and Inspection: able to speak in complete sentences GI GI Narrative: The abdomen is obese. Rectal Exam: deferred Extremity no calf tenderness General Extremity: Negative for clubbing or cyanosis Skin Wound Narrative: The patient now has 1 wound on the left pretibial area which is new since his last visit. It is traumatic in nature. He fell and sustained trauma to the area. He placed a Band-Aid topically, which he removed the following day, only to bring considerable amount of epidermis and dermis with the adhesive portion of the Band-Aid. Dimensions are documented elsewhere. There is no sign of infection or cellulitis. There is a small amount of bioburden. Hyperpigmentation and lipodermatosclerosis are noted in the gaiter areas bilaterally, rather severe in nature. Slight swelling and edema remain in the left lower extremity. Neuro oriented x3, CN's II-XII intact bilaterally, moves all extremities and no focal motor deficits Sensorium / Orientation: awake, alert, oriented to person, oriented to place and oriented to time Psych Appearance: grossly normal and appropriate Attitude: calm Activity / Motor Behavior: appropriate eye contact Speech: normal speech Mood & Affect: euthymic mood Thought Process: normal thought process Thought Content: normal thought content Attention / Concentration: attention grossly intact Debridement Note Debridement Note No debridement was completed: No debridement was completed today Post-Debridement Measurements and Additional Note: Post-Debridement Measurements/Treatment - Nurse 1 - General Ulcer Assessment Start: 02/07/22 09:28 Freq: Status: Active Protocol: RACHEL Activity Type Activity Date Activity User E-sign Co-sign Detail Recorded Client Recorded Date Recorded By Document 02/07/22 09:28 MIKEY [id number] 02/07/22 09:37 MIKEY 02/07/22 09:28 - Today's Visit Information Type of service Follow-up Visit (Physician/PNEUMATIC JACKETER ) Arrival Mode Ambulatory Patient Identification Verified (Name & Yes ) Height and Weight Body Mass Index (BMI) 49.4 BMI Classification Obese Vital Signs Temperature (97.8 F-99.1 F) 97.4 F L Temperature Source Temporal Pulse Rate (60-100) 90 Pulse Location Monitor Blood Pressure (90/60-120/80) 183/76 H Blood Pressure Mean 111 Source Monitor Position Sitting Blood Pressure Location Left Arm History Since Last Visit- (Skip if this is Patient's initial visit) Have you changed medications since your No last visit? Any new allergies or adverse reactions No Had a fall/change in ADL's that may No increase risk of falls Signs or symptoms of abuse and/or No neglect since last visit Have you been in the hospital since your No last visit? Has dressing in place as prescribed Yes Has compression in place as prescribed Yes Has offloadiing in place as prescribed N/A Experienced any changes in pain level or No management Left Footwear Regular Shoe Right Footwear Regular Shoe Pain Scale: 0-10 Numeric Is Patient Pain Free? Yes [facility] Nurse 1 - General Ulcer Measurement Start: 02/07/22 09:28 Freq: Status: Active Protocol: Activity Type Activity Date Activity User E-sign Co-sign Detail Recorded Client Recorded Date Recorded By Document 02/07/22 09:28 MIKEY [id number] 02/07/22 09:37 MIKEY 02/07/22 09:28 Wound Center Nurse 1 #2 Left lower extremity cluster -Current Size (cm) - Length 3.1 -Current Size (cm) - Width 11.3 -Current Size (cm) - Depth 0.1 -Total Square Cm 35.03 -Exudate Amt Medium -Exudate Type Serosanguineous -Wound Margin Distinct, Outline Attached -Granulation Amt Large (67-100%) -Granulation Quality [place],Red -Necrosis Amt None Present (0 %) -Texture (Mahnaz-wound Skin Appearance) Assessed, Scarring -Moisture (Mahnaz-wound Skin Appearance) No Abnormality, Assessed -Color (Mahnaz-wound Skin Appearance) No Abnormality, Assessed -Temperature (Mahnaz-wound Skin No Abnormality Appearance) (Pt Warm) -Tenderness on Palpation (Mahnaz-wound No Skin Appearance) -Ulcer Cleansing Rinsed/ Irrigated with Saline -Foul Odor after Cleansing No -Anesthetic Used 5% Lidocaine Gel #1 SUP LLE -Current Size (cm) - Length 0.1 -Current Size (cm) - Width 0.1 -Current Size (cm) - Depth 0.1 -Total Square Cm 0.01 -Exudate Amt Small -Exudate Type Serosanguineous -Wound Margin Distinct, Outline Attached -Granulation Amt Small (1-33%) -Granulation Quality Red -Necrosis Amt None Present (0 %) -Texture (Mahnaz-wound Skin Appearance) Assessed, Scarring -Moisture (Mahnaz-wound Skin Appearance) No Abnormality, Assessed -Color (Mahnaz-wound Skin Appearance) No Abnormality, Assessed -Temperature (Mahnaz-wound Skin No Abnormality Appearance) (Pt Warm) -Tenderness on Palpation (Mahnaz-wound No Skin Appearance) -Ulcer Cleansing Rinsed/ Irrigated with Saline -Foul Odor after Cleansing No -Anesthetic Used 5% Lidocaine Gel WC - Nurse 2 - General Ulcer CM Notes Start: 02/07/22 09:28 Freq: Status: Active Protocol: Activity Type Activity Date Activity User E-sign Co-sign Detail Recorded Client Recorded Date Recorded By Document 02/07/22 11:21 HAYLEY [id number] 02/07/22 11:23 PL 02/07/22 11:21 Wound Center Nurse 2 #2 Left lower extremity cluster -Time 09:49 -Correct Patient Yes -Correct Side, Site, Position Yes -Correct Procedure Yes -Procedure Performed Yes -Type of Procedure Debridement -Clinical Debridement Subcutaneous -Tissue Removed Subcutaneous -Post Debridement (cm) - Length 3.1 -Post Debridement (cm) - Width 11.3 -Post Debridement (cm) - Depth 0.1 -Total Square (Post) (cm) 35.03 -Area of Debridement (cm) - Length 3.1 -Area of Debridement (cm) - Width 11.3 -Total Square (Area) (cm) 35.03 -Tunneling No -Undermining/Tunneling No -Circular Undermining No -Wound/Ulcer Outcome Not Healed -Ulcer Cleansing Rinsed/ Irrigated with Saline -Foul Odor after Cleansing No -Bioengineered Tissue No -Bleeding Controlled with Pressure -Treatment Response Procedure Tolerated Well -Debridement - Subq, 1st 20sq cm Yes -Debridement, SubQ, ea addt'l 20sq cm 1 or part thereof #1 SUP LLE -Time 09:49 -Correct Patient Yes -Correct Side, Site, Position Yes -Correct Procedure Yes -Procedure Performed Yes -Type of Procedure Debridement -Clinical Debridement Subcutaneous -Tissue Removed Subcutaneous -Post Debridement (cm) - Length 0.1 -Post Debridement (cm) - Width 0.1 -Post Debridement (cm) - Depth 0.1 -Total Square (Post) (cm) 0.01 -Area of Debridement (cm) - Length 0.1 -Area of Debridement (cm) - Width 0.1 -Total Square (Area) (cm) 0.01 -Tunneling No -Undermining/Tunneling No -Circular Undermining No -Wound/Ulcer Outcome Not Healed -Ulcer Cleansing Rinsed/ Irrigated with Saline -Foul Odor after Cleansing No -Bioengineered Tissue No -Bleeding Controlled with Pressure -Treatment Response Procedure Tolerated Well -Debridement - Subq, 1st 20sq cm No Pain Scale: 0-10 Numeric Is Patient Pain Free? Yes - Nurse 3 - General Ulcer D/C NN Start: 02/07/22 09:28 Freq: Status: Active Protocol: Activity Type Activity Date Activity User E-sign Co-sign Detail Recorded Client Recorded Date Recorded By Document 02/07/22 10:27 MIKEY [id number] 02/07/22 10:28 MIKEY 02/07/22 10:27 Wound Care Nurse 3 Left -Multi-Layered Wrap Application Unna Boot - Left ($) Pain Scale: 0-10 Numeric Is Patient Pain Free? Yes - Visit Discharge Discharge Condition Stable Ambulatory Status Ambulatory Transportation Private Auto Assessment/Plan Assessment/Plan (1) Leg ulcer, left: CODE(S): L97.929 - Non-pressure chronic ulcer of unspecified part of left lower leg with unspecified severity QUALIFIERS: Non-pressure ulcer stage: with fat layer exposed Qualified Code(s): L97.922 - Non-pressure chronic ulcer of unspecified part of left lower leg with fat layer exposed (2) Venous ulcer of left leg: CODE(S): I83.029 - Varicose veins of left lower extremity with ulcer of unspecified site; L97.929 - Non-pressure chronic ulcer of unspecified part of left lower leg with unspecified severity (3) Left leg swelling: CODE(S): M79.89 - Other specified soft tissue disorders (4) Right leg swelling: CODE(S): M79.89 - Other specified soft tissue disorders (5) Hyperpigmentation: CODE(S): L81.9 - Disorder of pigmentation, unspecified (6) Lipodermatosclerosis of both lower extremities: CODE(S): I83.11 - Varicose veins of right lower extremity with inflammation; I83.12 - Varicose veins of left lower extremity with inflammation (7) Morbid obesity with BMI of 45.0-49.9, adult: CODE(S): E66.01 - Morbid (severe) obesity due to excess calories; Z68.42 - Body mass index [BMI] 45.0-49.9, adult (8) Hypertension: CODE(S): I10 - Essential (primary) hypertension (9) Chronic venous insufficiency of lower extremity: CODE(S): I87.2 - Venous insufficiency (chronic) (peripheral) (10) Diabetes mellitus: CODE(S): E11.9 - Type 2 diabetes mellitus without complications (11) Hypothyroidism: CODE(S): E03.9 - Hypothyroidism, unspecified (12) Hypertriglyceridemia: CODE(S): E78.1 - Pure hyperglyceridemia (13) History of gout: CODE(S): Z87.39 - Personal history of other diseases of the musculoskeletal system and connective tissue (14) Fatty liver: CODE(S): K76.0 - Fatty (change of) liver, not elsewhere classified (15) History of vertigo: CODE(S): Z87.898 - Personal history of other specified conditions (16) History of gastrointestinal hemorrhage: CODE(S): Z87.19 - Personal history of other diseases of the digestive system (17) History of hemorrhoids: CODE(S): Z87.19 - Personal history of other diseases of the digestive system PLAN: Plan This is a 51-year-old male who is morbidly obese, and with a history of multiple pre-existing medical problems. He has a longstanding history of swelling and edema in his lower extremities, and has had prior episodes of spontaneous ulcerations in his lower extremities, thought to be secondary to chronic venous insufficiency. His ulcerations had been present for approximately 3 to 4 weeks, located in the left heath-medial calf. A lengthy discussion has been undertaken as to the conservative treatment measures appropriate to the patient's management. The patient sleeps on a flat mattress at night. This has been encouraged. Additionally, the patient has been advised to elevate his lower extremities is much as possible during daytime hours. Leg elevation is to be to heart level, or higher. Prolonged idle sitting has been discouraged. Activity has been encouraged. Weight loss has also been recommended. It is noted that the patient has voluntarily and purposely lost approximately 65 pounds in recent months. The patient has discomfort and pain in his lower extremities, and nonsteroidal anti-inflammatory medications have been advised. The patient has a new ulceration on the left anterior tibial surface which is a result of trauma since his last visit. Is very superficial, and an Unna boot is to be applied, to be changed twice weekly. 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 Leg elevation has been advised is much as possible, to heart level, or higher. Long-term lifestyle modification has been discussed, implementing conservative treatment measures as discussed above in an effort to prevent recurrence of ulcerations in his lower extremities. The patient is return in 1 week for reevaluation. Ultimately, once his left lower extremity ulcerations have healed, a long-term means of compression will be required. Total time: 29 minutes
[2022-02-10 09:20] VITALS: BP 152/75; PULSE 70; TEMP 36.2; BMI 49.4
[2022-02-14 09:54] VITALS: BP 157/72; PULSE 64; TEMP 36.8; BMI 49.4
--- NOTE | 2022-02-14 17:31 | PCM.WC.HP ---
History of Present Illness Date of Service: 02/14/22 Chief Complaint: Left lower extremity ulcerations History of Wound: This is a 51-year-old morbidly obese male with multiple pre-existing medical problems. He presented with ulcerations on the medial aspect of his left calf, which had been present for approximately 3 to 4 weeks. They occurred spontaneously. He has previously suffered from ulcerations in his lower extremities, which occurred as a result of chronic venous insufficiency. Prior ulcerations have healed spontaneously. The patient had been using topical preparations such as chlorhexidine and Betadine. He had been treated by his primary care physician with courses of oral Keflex and tetracycline, which have been completed. He experiences swelling in both lower extremities, which is said to be worse at the end of each day. His swelling has occurred for many years. He sleeps on a flat mattress at night. He is active, and seeks exercise by means of swimming. He denies a history of thrombophlebitis. In recent months, the patient has lost approximately 65 pounds purposefully. 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. Recently, the patient's primary care physician increased his dose of Lasix in an attempt to address issues related to lower extremity swelling. [facility] Medical History Chronic venous insufficiency of lower extremity Diabetes mellitus Fatty liver History of gastrointestinal hemorrhage History of gout History of hemorrhoids History of vertigo Hyperpigmentation Hypertension Hypertriglyceridemia Hypothyroidism Left leg swelling Leg ulcer, left Lipodermatosclerosis of both lower extremities Morbid obesity with BMI of 45.0-49.9, adult Right leg swelling Venous ulcer of left leg Home Medications allopurinol 300 mg tablet 300 mg PO DAILY 01/10/22 [History Last Taken Unknown] clonidine HCl 0.2 mg tablet 0.2 mg PO BID 01/10/22 [History Last Taken Unknown] diltiazem HCl 360 mg PO/SL DAILY 01/10/22 [History Last Taken Unknown] fluoxetine 40 mg capsule (Prozac) 40 mg PO DAILY 01/10/22 [History Last Taken Unknown] furosemide 40 mg tablet (Lasix) 40 mg PO BID 01/10/22 [History Last Taken Unknown] levothyroxine 25 mcg capsule 25 mcg PO DAILY 01/10/22 [History Last Taken Unknown] losartan 100 mg tablet 100 mg PO DAILY 01/10/22 [History Last Taken Unknown] metoprolol succinate 100 mg tablet,extended release 24 hr 100 mg PO 1XD 01/10/22 [History Last Taken Unknown] Allergy/AdvReac Type Severity Reaction Status Date / Time ibuprofen Allergy Other Verified 01/10/22 10:50 aripiprazole [From Abilify] AdvReac Other Verified 01/10/22 10:50 Vital Signs Vital Signs Vital Signs: 02/14/22 09:54 Temperature 98.2 F Temperature Source Temporal Pulse Rate 64 Blood Pressure 157/72 H Blood Pressure Mean 100 Blood Pressure Source Monitor Blood Pressure Position Sitting Blood Pressure Location Right Arm Weight Weight: 395 lb 13.214 oz Body Mass Index (BMI) 49.4 Physical Exam Const alert, oriented x3, no apparent distress and well nourished Constitutional Narrative: The patient is morbidly obese. General Appearance: cooperative, comfortable, well kempt and well developed Orientation / Consciousness: awake, oriented to person, oriented to place and oriented to time Exam Limitations: no limitations HEENT normocephalic, head/scalp atraumatic and hearing grossly normal bilaterally Head and Scalp: normal to inspection, normocephalic and atraumatic External Ear: external ears normal Eyes PERRL and EOMs intact bilaterally General Eye: normal appearance of both eyes Resp normal respiratory effort, normal air movement, no retractions and no use of accessory muscles Effort and Inspection: able to speak in complete sentences GI GI Narrative: The abdomen is obese. Rectal Exam: deferred Extremity no calf tenderness General Extremity: Negative for clubbing or cyanosis Skin Wound Narrative: The patient now has only 1 wound on the left pretibial area which is new since his last visit. It is traumatic in nature. He fell and sustained trauma to the area. He placed a Band-Aid topically, which he removed the following day, only to bring considerable amount of epidermis and dermis with the adhesive portion of the Band-Aid. Dimensions are documented elsewhere. There is no sign of infection or cellulitis. There is a small amount of bioburden. Hyperpigmentation and lipodermatosclerosis are noted in the gaiter areas bilaterally, rather severe in nature. Slight swelling and edema remain in the left lower extremity. Neuro oriented x3, CN's II-XII intact bilaterally, moves all extremities and no focal motor deficits Sensorium / Orientation: awake, alert, oriented to person, oriented to place and oriented to time Psych Appearance: grossly normal and appropriate Attitude: calm Activity / Motor Behavior: appropriate eye contact Speech: normal speech Mood & Affect: euthymic mood Thought Process: normal thought process Thought Content: normal thought content Attention / Concentration: attention grossly intact Debridement Note Debridement Note No debridement was completed: No debridement was completed today (Debridement was not performed. The left pretibial wound appears clean with little or no bioburden.) Post-Debridement Measurements and Additional Note: Post-Debridement Measurements/Treatment - Nurse 1 - General Ulcer Assessment Start: 02/07/22 09:28 Freq: Status: Active Protocol: EDUARDO.LOWEXT Activity Type Activity Date Activity User E-sign Co-sign Detail Recorded Client Recorded Date Recorded By Document 02/07/22 09:28 KR [id number] 02/07/22 09:37 KR Document 02/10/22 09:20 AK [id number] 02/10/22 09:22 AK Document 02/14/22 09:54 KR [id number] 02/14/22 09:58 KR 02/07/22 02/10/22 02/14/22 09:28 09:20 09:54 - Today's Visit Information Type of service Follow-up Visit Nurse-only Follow-up Visit (Physician/MOTHER REPAIRER Visit (Physician/MOTHER REPAIRER ) ) Arrival Mode Ambulatory Ambulatory Ambulatory Patient Identification Verified (Name & Yes Yes Yes ) Patient Requires Transmission-Based No Precautions Safety Precautions NA Height and Weight Body Mass Index (BMI) 49.4 49.4 49.4 BMI Classification Obese Obese Obese Vital Signs Temperature (97.8 F-99.1 F) 97.4 F L 97.2 F L 98.2 F Temperature Source Temporal Temporal Temporal Pulse Rate (60-100) 90 70 64 Pulse Location Monitor Monitor Monitor Blood Pressure (90/60-120/80) 183/76 H 152/75 H 157/72 H Blood Pressure Mean 111 100 100 Source Monitor Monitor Monitor Position Sitting Sitting Blood Pressure Location Left Arm Right Arm History Since Last Visit- (Skip if this is Patient's initial visit) Have you changed medications since your No No No last visit? Any new allergies or adverse reactions No No No Had a fall/change in ADL's that may No No No increase risk of falls Signs or symptoms of abuse and/or No No No neglect since last visit Have you been in the hospital since your No No No last visit? Has dressing in place as prescribed Yes Yes Yes Has compression in place as prescribed Yes Yes Yes Has offloadiing in place as prescribed N/A N/A N/A Experienced any changes in pain level or No No No management Left Footwear Regular Shoe Regular Shoe Regular Shoe Right Footwear Regular Shoe Regular Shoe Regular Shoe Pain Scale: 0-10 Numeric Is Patient Pain Free? Yes Yes Yes WC - Nurse 1 - General Ulcer Measurement Start: 02/07/22 09:28 Freq: Status: Active Protocol: Activity Type Activity Date Activity User E-sign Co-sign Detail Recorded Client Recorded Date Recorded By Document 02/07/22 09:28 MIKEY [id number] 02/07/22 09:37 KR Document 02/14/22 09:54 KR [id number] 02/14/22 09:58 KR 02/07/22 02/14/22 09:28 09:54 Wound Center Nurse 1 #2 Left lower extremity cluster -Current Size (cm) - Length 3.1 2 -Current Size (cm) - Width 11.3 6.1 -Current Size (cm) - Depth 0.1 0.1 -Total Square Cm 35.03 12.2 -Exudate Amt Medium Medium -Exudate Type Serosanguineous Serosanguineous -Wound Margin Distinct, Distinct, Outline Outline Attached Attached -Granulation Amt Large (67-100%) Medium (34-66%) -Granulation Quality [place],Red Red -Necrosis Amt None Present (0 None Present (0 %) %) -Texture (Mahnaz-wound Skin Appearance) Assessed, Assessed, Scarring Scarring -Moisture (Mahnaz-wound Skin Appearance) No Abnormality, No Abnormality, Assessed Assessed -Color (Mahnaz-wound Skin Appearance) No Abnormality, No Abnormality, Assessed Assessed -Temperature (Mahnaz-wound Skin No Abnormality No Abnormality Appearance) (Pt Warm) (Pt Warm) -Tenderness on Palpation (Mahnaz-wound No No Skin Appearance) -Ulcer Cleansing Rinsed/ Soap and Water Irrigated with Saline -Foul Odor after Cleansing No No -Anesthetic Used 5% Lidocaine 5% Lidocaine Gel Gel #1 SUP LLE -Current Size (cm) - Length 0.1 -Current Size (cm) - Width 0.1 -Current Size (cm) - Depth 0.1 -Total Square Cm 0.01 -Exudate Amt Small -Exudate Type Serosanguineous -Wound Margin Distinct, Outline Attached -Granulation Amt Small (1-33%) -Granulation Quality Red -Necrosis Amt None Present (0 %) -Texture (Mahnaz-wound Skin Appearance) Assessed, Scarring -Moisture (Mahnaz-wound Skin Appearance) No Abnormality, Assessed -Color (Mahnaz-wound Skin Appearance) No Abnormality, Assessed -Temperature (Mahnaz-wound Skin No Abnormality Appearance) (Pt Warm) -Tenderness on Palpation (Mahnaz-wound No Skin Appearance) -Ulcer Cleansing Rinsed/ Irrigated with Saline -Foul Odor after Cleansing No -Anesthetic Used 5% Lidocaine Gel Left Ankle (cm) 43 Left Foot (cm) 26 WC - Nurse 2 - General Ulcer CM Notes Start: 02/07/22 09:28 Freq: Status: Active Protocol: Activity Type Activity Date Activity User E-sign Co-sign Detail Recorded Client Recorded Date Recorded By Document 02/07/22 11:21 HAYLEY [id number] 02/07/22 11:23 HAYLEY 02/07/22 11:21 Wound Center Nurse 2 #2 Left lower extremity cluster -Time 09:49 -Correct Patient Yes -Correct Side, Site, Position Yes -Correct Procedure Yes -Procedure Performed Yes -Type of Procedure Debridement -Clinical Debridement Subcutaneous -Tissue Removed Subcutaneous -Post Debridement (cm) - Length 3.1 -Post Debridement (cm) - Width 11.3 -Post Debridement (cm) - Depth 0.1 -Total Square (Post) (cm) 35.03 -Area of Debridement (cm) - Length 3.1 -Area of Debridement (cm) - Width 11.3 -Total Square (Area) (cm) 35.03 -Tunneling No -Undermining/Tunneling No -Circular Undermining No -Wound/Ulcer Outcome Not Healed -Ulcer Cleansing Rinsed/ Irrigated with Saline -Foul Odor after Cleansing No -Bioengineered Tissue No -Bleeding Controlled with Pressure -Treatment Response Procedure Tolerated Well -Debridement - Subq, 1st 20sq cm Yes -Debridement, SubQ, ea addt'l 20sq cm 1 or part thereof #1 SUP LLE -Time 09:49 -Correct Patient Yes -Correct Side, Site, Position Yes -Correct Procedure Yes -Procedure Performed Yes -Type of Procedure Debridement -Clinical Debridement Subcutaneous -Tissue Removed Subcutaneous -Post Debridement (cm) - Length 0.1 -Post Debridement (cm) - Width 0.1 -Post Debridement (cm) - Depth 0.1 -Total Square (Post) (cm) 0.01 -Area of Debridement (cm) - Length 0.1 -Area of Debridement (cm) - Width 0.1 -Total Square (Area) (cm) 0.01 -Tunneling No -Undermining/Tunneling No -Circular Undermining No -Wound/Ulcer Outcome Not Healed -Ulcer Cleansing Rinsed/ Irrigated with Saline -Foul Odor after Cleansing No -Bioengineered Tissue No -Bleeding Controlled with Pressure -Treatment Response Procedure Tolerated Well -Debridement - Subq, 1st 20sq cm No Pain Scale: 0-10 Numeric Is Patient Pain Free? Yes WC - Nurse 3 - General Ulcer D/C NN Start: 02/07/22 09:28 Freq: Status: Active Protocol: Activity Type Activity Date Activity User E-sign Co-sign Detail Recorded Client Recorded Date Recorded By Document 02/07/22 10:27 KR [id number] 02/07/22 10:28 KR Document 02/10/22 09:20 AK [id number] 02/10/22 09:22 AK Document 02/14/22 13:19 KR [id number] 02/14/22 13:20 KR 02/07/22 02/10/22 02/14/22 10:27 09:20 13:19 Wound Care Nurse 3 #2 Left lower extremity cluster -Ulcer Cleansing Soap and Water -Foul Odor after Cleansing No -Negative Pressure Wound Therapy N/A -Primary Dressing Applied Promogran -Primary Dressing Covered/Secured with Dry Gauze, Secured with Tape -Promogran 1 #1 SUP LLE -Ulcer Cleansing Soap and Water Left -Lotion applied to leg before No compression wrap -Multi-Layered Wrap Application Unna Boot - Unna Boot - Left ($) Left ($) -Tubular Bandage Single Layer -Size of Tubigrip Used Size D -Size D ($) 1 Vital Signs Temperature (97.8 F-99.1 F) 97.2 F L Temperature Source Temporal Pulse Rate (60-100) 70 Pulse Location Monitor Blood Pressure (90/60-120/80) 152/75 H Blood Pressure Mean 100 Source Monitor Pain Scale: 0-10 Numeric Is Patient Pain Free? Yes Yes Yes WC - Visit Discharge Discharge Condition Stable Stable Stable Ambulatory Status Ambulatory Ambulatory Ambulatory Transportation Private Auto Private Auto Private Auto Medication Reconcilliation completed & Yes provided to patient/care provider Clinical Summary of Care Provided Yes Notes: Olena completed wrap Assessment/Plan Assessment/Plan (1) Leg ulcer, left: CODE(S): L97.929 - Non-pressure chronic ulcer of unspecified part of left lower leg with unspecified severity QUALIFIERS: Non-pressure ulcer stage: with fat layer exposed Qualified Code(s): L97.922 - Non-pressure chronic ulcer of unspecified part of left lower leg with fat layer exposed (2) Venous ulcer of left leg: CODE(S): I83.029 - Varicose veins of left lower extremity with ulcer of unspecified site; L97.929 - Non-pressure chronic ulcer of unspecified part of left lower leg with unspecified severity (3) Left leg swelling: CODE(S): M79.89 - Other specified soft tissue disorders (4) Right leg swelling: CODE(S): M79.89 - Other specified soft tissue disorders (5) Hyperpigmentation: CODE(S): L81.9 - Disorder of pigmentation, unspecified (6) Lipodermatosclerosis of both lower extremities: CODE(S): I83.11 - Varicose veins of right lower extremity with inflammation; I83.12 - Varicose veins of left lower extremity with inflammation (7) Morbid obesity with BMI of 45.0-49.9, adult: CODE(S): E66.01 - Morbid (severe) obesity due to excess calories; Z68.42 - Body mass index [BMI] 45.0-49.9, adult (8) Hypertension: CODE(S): I10 - Essential (primary) hypertension (9) Chronic venous insufficiency of lower extremity: CODE(S): I87.2 - Venous insufficiency (chronic) (peripheral) (10) Diabetes mellitus: CODE(S): E11.9 - Type 2 diabetes mellitus without complications (11) Hypothyroidism: CODE(S): E03.9 - Hypothyroidism, unspecified (12) Hypertriglyceridemia: CODE(S): E78.1 - Pure hyperglyceridemia (13) History of gout: CODE(S): Z87.39 - Personal history of other diseases of the musculoskeletal system and connective tissue (14) Fatty liver: CODE(S): K76.0 - Fatty (change of) liver, not elsewhere classified (15) History of vertigo: CODE(S): Z87.898 - Personal history of other specified conditions (16) History of gastrointestinal hemorrhage: CODE(S): Z87.19 - Personal history of other diseases of the digestive system (17) History of hemorrhoids: CODE(S): Z87.19 - Personal history of other diseases of the digestive system PLAN: Plan This is a 51-year-old male who is morbidly obese, and with a history of multiple pre-existing medical problems. He has a longstanding history of swelling and edema in his lower extremities, and has had prior episodes of spontaneous ulcerations in his lower extremities, thought to be secondary to chronic venous insufficiency. His ulcerations had been present for approximately 3 to 4 weeks, located in the left heath-medial calf. A lengthy discussion has been undertaken as to the conservative treatment measures appropriate to the patient's management. The patient sleeps on a flat mattress at night. This has been encouraged. Additionally, the patient has been advised to elevate his lower extremities is much as possible during daytime hours. Leg elevation is to be to heart level, or higher. Prolonged idle sitting has been discouraged. Activity has been encouraged. Weight loss has also been recommended. It is noted that the patient has voluntarily and purposely lost approximately 65 pounds in recent months. The patient has discomfort and pain in his lower extremities, and nonsteroidal anti-inflammatory medications have been advised. The patient has a new ulceration on the left anterior tibial surface which is a result of recent trauma. It is very superficial. We are to implement the use of Promogran, which will be applied by the patient topically on a daily basis. Compression is to be implemented by means of graduated compression stockings of 20 to 30 mmHg compression. All other lower extremity ulcerations have now healed. 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 Leg elevation has been advised is much as possible, to heart level, or higher. Long-term lifestyle modification has been discussed, implementing conservative treatment measures as discussed above in an effort to prevent recurrence of ulcerations in his lower extremities. The patient is return in 1 week for reevaluation. Total time: 28 minutes
[2022-02-21 09:26] VITALS: BP 149/69; PULSE 61; TEMP 36.6; BMI 49.4
--- NOTE | 2022-02-21 10:19 | HP.PCM_ITS ---
History of Present Illness Date of Service: 02/21/22 Chief Complaint: Left lower extremity ulcerations History of Wound: This is a 51-year-old morbidly obese male with multiple pre- existing medical problems. He presented with ulcerations on the medial aspect of his left calf, which had been present for approximately 3 to 4 weeks. They occurred spontaneously. He has previously suffered from ulcerations in his lower extremities, which occurred as a result of chronic venous insufficiency. Prior ulcerations have healed spontaneously. The patient had been using topical preparations such as chlorhexidine and Betadine. He had been treated by his primary care physician with courses of oral Keflex and tetracycline, which have been completed. He experiences swelling in both lower extremities, which is said to be worse at the end of each day. His swelling has occurred for many years. He sleeps on a flat mattress at night. He is active, and seeks exercise by means of swimming. He denies a history of thrombophlebitis. In recent months, the patient has lost approximately 65 pounds purposefully. 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. Recently, the patient's primary care physician increased his dose of Lasix in an attempt to address issues related to lower extremity swelling. [facility] Medical History Chronic venous insufficiency of lower extremity Diabetes mellitus Fatty liver History of gastrointestinal hemorrhage History of gout History of hemorrhoids History of vertigo Hyperpigmentation Hypertension Hypertriglyceridemia Hypothyroidism Left leg swelling Leg ulcer, left Lipodermatosclerosis of both lower extremities Morbid obesity with BMI of 45.0-49.9, adult Right leg swelling Venous ulcer of left leg Home Medications allopurinol 300 mg tablet 300 mg PO DAILY 01/10/22 [History Last Taken Unknown] clonidine HCl 0.2 mg tablet 0.2 mg PO BID 01/10/22 [History Last Taken Unknown] diltiazem HCl 360 mg PO/SL DAILY 01/10/22 [History Last Taken Unknown] fluoxetine 40 mg capsule (Prozac) 40 mg PO DAILY 01/10/22 [History Last Taken Unknown] furosemide 40 mg tablet (Lasix) 40 mg PO BID 01/10/22 [History Last Taken Unknown] levothyroxine 25 mcg capsule 25 mcg PO DAILY 01/10/22 [History Last Taken Unknown] losartan 100 mg tablet 100 mg PO DAILY 01/10/22 [History Last Taken Unknown] metoprolol succinate 100 mg tablet,extended release 24 hr 100 mg PO 1XD 01/10/22 [History Last Taken Unknown] Allergy/AdvReac Type Severity Reaction Status Date / Time ibuprofen Allergy Other Verified 01/10/22 10:50 aripiprazole [From Abilify] AdvReac Other Verified 01/10/22 10:50 Vital Signs Vital Signs Vital Signs: 02/21/22 09:26 Temperature 97.8 F Temperature Source Temporal Pulse Rate 61 Blood Pressure 149/69 H Blood Pressure Mean 95 Blood Pressure Source Monitor Blood Pressure Position Semi-Fowlers Blood Pressure Location Right Arm Weight Weight: 395 lb 13.214 oz Body Mass Index (BMI) 49.4 Physical Exam Const alert, oriented x3, no apparent distress and well nourished Constitutional Narrative: The patient is morbidly obese. General Appearance: cooperative, comfortable, well kempt and well developed Orientation / Consciousness: awake, oriented to person, oriented to place and oriented to time Exam Limitations: no limitations HEENT normocephalic, head/scalp atraumatic and hearing grossly normal bilaterally Head and Scalp: normal to inspection, normocephalic and atraumatic External Ear: external ears normal Eyes PERRL and EOMs intact bilaterally General Eye: normal appearance of both eyes Resp normal respiratory effort, normal air movement, no retractions and no use of accessory muscles Effort and Inspection: able to speak in complete sentences GI GI Narrative: The abdomen is obese. Rectal Exam: deferred Extremity no calf tenderness General Extremity: Negative for clubbing or cyanosis Skin Wound Narrative: The patient now has only 1 wound on the left pretibial area which is recent and new since his initial visit. It is traumatic in nature. He fell and sustained trauma to the area. He placed a Band-Aid topically, which he removed the following day, only to bring considerable amount of epidermis and dermis with the adhesive portion of the Band-Aid. Dimensions are documented elsewhere. The wound appears smaller in size than noted previously. There is no sign of infection or cellulitis. There is a small amount of bioburden. Hyperpigmentation and lipodermatosclerosis are noted in the gaiter areas bilaterally, rather severe in nature. No significant swelling or edema are noted in the left lower extremity. Neuro oriented x3, CN's II-XII intact bilaterally, moves all extremities and no focal motor deficits Sensorium / Orientation: awake, alert, oriented to person, oriented to place and oriented to time Psych Appearance: grossly normal and appropriate Attitude: calm Activity / Motor Behavior: appropriate eye contact Speech: normal speech Mood & Affect: euthymic mood Thought Process: normal thought process Thought Content: normal thought content Attention / Concentration: attention grossly intact Debridement Note Debridement Note Wound debrided: Left lower extremity; anterolateral calf Laterality: Left Type of Debridement: Excisional debridement Anesthesia Used: 5% Lidocaine Gel Depth: Down to and including healthy tissue and in the subcutaneous layer Percentage of wound debrided: 100 Instrument Used: 5mm curette Tissue Removed: Bioburden Severity: Fat Layer Exposed Amount of bleeding with debridement: Mild Bleeding Controlled with: Compression and gauze Patient tolerated procedure: Patient tolerated procedure well No debridement was completed: No debridement was completed today (Debridement was not performed. The left pretibial wound appears clean with little or no bioburden.) Post-Debridement Measurements and Additional Note: Post-Debridement Measurements/Treatment - Nurse 1 - General Ulcer Assessment Start: 02/07/22 09:28 Freq: Status: Active Protocol: [email or web address] Activity Type Activity Date Activity User E-sign Co-sign Detail Recorded Client Recorded Date Recorded By Document 02/07/22 09:28 MIKEY [id number] 02/07/22 09:37 KR Document 02/10/22 09:20 AK [id number] 02/10/22 09:22 AK Document 02/14/22 09:54 KR [id number] 02/14/22 09:58 KR Document 02/21/22 09:26 KR [id number] 02/21/22 09:31 KR 02/07/22 02/10/22 02/14/22 09:28 09:20 09:54 - Today's Visit Information Type of service Follow-up Visit Nurse-only Follow-up Visit (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 Visit (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 ) ) Arrival Mode Ambulatory Ambulatory Ambulatory Patient Identification Verified (Name & Yes Yes Yes ) Patient Requires Transmission-Based No Precautions Safety Precautions NA Height and Weight Body Mass Index (BMI) 49.4 49.4 49.4 BMI Classification Obese Obese Obese Vital Signs Temperature (97.8 F-99.1 F) 97.4 F L 97.2 F L 98.2 F Temperature Source Temporal Temporal Temporal Pulse Rate (60-100) 90 70 64 Pulse Location Monitor Monitor Monitor Blood Pressure (90/60-120/80) 183/76 H 152/75 H 157/72 H Blood Pressure Mean 111 100 100 Source Monitor Monitor Monitor Position Sitting Sitting Blood Pressure Location Left Arm Right Arm History Since Last Visit- (Skip if this is Patient's initial visit) Have you changed medications since your No No No last visit? Any new allergies or adverse reactions No No No Had a fall/change in ADL's that may No No No increase risk of falls Signs or symptoms of abuse and/or No No No neglect since last visit Have you been in the hospital since your No No No last visit? Has dressing in place as prescribed Yes Yes Yes Has compression in place as prescribed Yes Yes Yes Has offloadiing in place as prescribed N/A N/A N/A Experienced any changes in pain level or No No No management Left Footwear Regular Shoe Regular Shoe Regular Shoe Right Footwear Regular Shoe Regular Shoe Regular Shoe Pain Scale: 0-10 Numeric Is Patient Pain Free? 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 Any new allergies or adverse reactions No Had a fall/change in ADL's that may No increase risk of falls Signs or symptoms of abuse and/or No neglect since last visit Have you been in the hospital since your No last visit? Has dressing in place as prescribed Yes Has compression in place as prescribed Yes Has offloadiing in place as prescribed N/A Experienced any changes in pain level or No management Left Footwear Regular Shoe Right Footwear Regular Shoe Pain Scale: 0-10 Numeric Is Patient Pain Free? Yes WC - Nurse 1 - General Ulcer Measurement Start: 02/07/22 09:28 Freq: Status: Active Protocol: Activity Type Activity Date Activity User E-sign Co-sign Detail Recorded Client Recorded Date Recorded By Document 02/07/22 09:28 MIKEY [id number] 02/07/22 09:37 KR Document 02/14/22 09:54 KR [id number] 02/14/22 09:58 KR Document 02/21/22 09:26 KR [id number] 02/21/22 09:31 KR 02/07/22 02/14/22 02/21/22 09:28 09:54 09:26 Wound Center Nurse 1 #1 SUP LLE -Current Size (cm) - Length 0.1 1.3 -Current Size (cm) - Width 0.1 3.6 -Current Size (cm) - Depth 0.1 0.1 -Total Square Cm 0.01 4.68 -Exudate Amt Small Small -Exudate Type Serosanguineous Serosanguineous -Wound Margin Distinct, Distinct, Outline Outline Attached Attached -Granulation Amt Small (1-33%) Large (67-100%) -Granulation Quality Red Red -Necrosis Amt None Present (0 Small (1-33%) %) -Necrotic Tissue Type Adherent Slough -Texture (Mahnaz-wound Skin Appearance) Assessed, Assessed, Scarring Scarring -Moisture (Mahnaz-wound Skin Appearance) No Abnormality, No Abnormality, Assessed Assessed -Color (Mahnaz-wound Skin Appearance) No Abnormality, No Abnormality, Assessed Assessed -Temperature (Mahnaz-wound Skin No Abnormality No Abnormality Appearance) (Pt Warm) (Pt Warm) -Tenderness on Palpation (Mahnaz-wound No No Skin Appearance) -Ulcer Cleansing Rinsed/ Rinsed/ Irrigated with Irrigated with Saline Saline -Foul Odor after Cleansing No No -Anesthetic Used 5% Lidocaine 5% Lidocaine Gel Gel #2 Left lower extremity cluster -Current Size (cm) - Length 3.1 2 -Current Size (cm) - Width 11.3 6.1 -Current Size (cm) - Depth 0.1 0.1 -Total Square Cm 35.03 12.2 -Exudate Amt Medium Medium -Exudate Type Serosanguineous Serosanguineous -Wound Margin Distinct, Distinct, Outline Outline Attached Attached -Granulation Amt Large (67-100%) Medium (34-66%) -Granulation Quality [place],Red Red -Necrosis Amt None Present (0 None Present (0 %) %) -Texture (Mahnaz-wound Skin Appearance) Assessed, Assessed, Scarring Scarring -Moisture (Mahnaz-wound Skin Appearance) No Abnormality, No Abnormality, Assessed Assessed -Color (Mahnaz-wound Skin Appearance) No Abnormality, No Abnormality, Assessed Assessed -Temperature (Mahnaz-wound Skin No Abnormality No Abnormality Appearance) (Pt Warm) (Pt Warm) -Tenderness on Palpation (Mahnaz-wound No No Skin Appearance) -Ulcer Cleansing Rinsed/ Soap and Water Irrigated with Saline -Foul Odor after Cleansing No No -Anesthetic Used 5% Lidocaine 5% Lidocaine Gel Gel Left Calf (cm) 46.5 Left Ankle (cm) 43 25.3 Left Foot (cm) 26 WC - Nurse 2 - General Ulcer CM Notes Start: 02/07/22 09:28 Freq: Status: Active Protocol: Activity Type Activity Date Activity User E-sign Co-sign Detail Recorded Client Recorded Date Recorded By Document 02/07/22 11:21 PL [id number] 02/07/22 11:23 PL 02/07/22 11:21 Wound Center Nurse 2 #1 SUP LLE -Time 09:49 -Correct Patient Yes -Correct Side, Site, Position Yes -Correct Procedure Yes -Procedure Performed Yes -Type of Procedure Debridement -Clinical Debridement Subcutaneous -Tissue Removed Subcutaneous -Post Debridement (cm) - Length 0.1 -Post Debridement (cm) - Width 0.1 -Post Debridement (cm) - Depth 0.1 -Total Square (Post) (cm) 0.01 -Area of Debridement (cm) - Length 0.1 -Area of Debridement (cm) - Width 0.1 -Total Square (Area) (cm) 0.01 -Tunneling No -Undermining/Tunneling No -Circular Undermining No -Wound/Ulcer Outcome Not Healed -Ulcer Cleansing Rinsed/ Irrigated with Saline -Foul Odor after Cleansing No -Bioengineered Tissue No -Bleeding Controlled with Pressure -Treatment Response Procedure Tolerated Well -Debridement - Subq, 1st 20sq cm No #2 Left lower extremity cluster -Time 09:49 -Correct Patient Yes -Correct Side, Site, Position Yes -Correct Procedure Yes -Procedure Performed Yes -Type of Procedure Debridement -Clinical Debridement Subcutaneous -Tissue Removed Subcutaneous -Post Debridement (cm) - Length 3.1 -Post Debridement (cm) - Width 11.3 -Post Debridement (cm) - Depth 0.1 -Total Square (Post) (cm) 35.03 -Area of Debridement (cm) - Length 3.1 -Area of Debridement (cm) - Width 11.3 -Total Square (Area) (cm) 35.03 -Tunneling No -Undermining/Tunneling No -Circular Undermining No -Wound/Ulcer Outcome Not Healed -Ulcer Cleansing Rinsed/ Irrigated with Saline -Foul Odor after Cleansing No -Bioengineered Tissue No -Bleeding Controlled with Pressure -Treatment Response Procedure Tolerated Well -Debridement - Subq, 1st 20sq cm Yes -Debridement, SubQ, ea addt'l 20sq cm 1 or part thereof Pain Scale: 0-10 Numeric Is Patient Pain Free? Yes WC - Nurse 3 - General Ulcer D/C NN Start: 02/07/22 09:28 Freq: Status: Active Protocol: Activity Type Activity Date Activity User E-sign Co-sign Detail Recorded Client Recorded Date Recorded By Document 02/07/22 10:27 KR [id number] 02/07/22 10:28 KR Document 02/10/22 09:20 AK [id number] 02/10/22 09:22 AK Document 02/14/22 13:19 KR [id number] 02/14/22 13:20 KR Document 02/21/22 10:06 MW [id number] 02/21/22 10:08 MW 02/07/22 02/10/22 02/14/22 10:27 09:20 13:19 Wound Care Nurse 3 #1 SUP LLE -Ulcer Cleansing Soap and Water #2 Left lower extremity cluster -Ulcer Cleansing Soap and Water -Foul Odor after Cleansing No -Negative Pressure Wound Therapy N/A -Primary Dressing Applied Promogran -Primary Dressing Covered/Secured with Dry Gauze, Secured with Tape -Promogran 1 Left -Lotion applied to leg before No compression wrap -Multi-Layered Wrap Application Unna Boot - Unna Boot - Left ($) Left ($) -Tubular Bandage Single Layer -Size of Tubigrip Used Size D -Size D ($) 1 -Stockings Treatment Response Vital Signs Temperature (97.8 F-99.1 F) 97.2 F L Temperature Source Temporal Pulse Rate (60-100) 70 Pulse Location Monitor Blood Pressure (90/60-120/80) 152/75 H Blood Pressure Mean 100 Source Monitor Pain Scale: 0-10 Numeric Is Patient Pain Free? Yes Yes Yes Teaching: Wound Center Dressing Your Wound -Person Taught -Teaching Method -Response to teaching Control Swelling with Leg Elevation -Person Taught -Teaching Method -Response to teaching WC - Visit Discharge Discharge Condition Stable Stable Stable Ambulatory Status Ambulatory Ambulatory Ambulatory Transportation Private Auto Private Auto Private Auto Accompanied by Medication Reconcilliation completed & Yes provided to patient/care provider Clinical Summary of Care Provided Yes Notes: Olena completed wrap 02/21/22 10:06 Wound Care Nurse 3 #1 SUP LLE -Ulcer Cleansing #2 Left lower extremity cluster -Ulcer Cleansing Rinsed/ Irrigated with Saline -Foul Odor after Cleansing No -Negative Pressure Wound Therapy N/A -Primary Dressing Applied Promogran -Primary Dressing Covered/Secured with Dry Gauze & Roll Gauze, Secured with Tape -Promogran 1 Left -Lotion applied to leg before compression wrap -Multi-Layered Wrap Application -Tubular Bandage -Size of Tubigrip Used -Size D ($) -Stockings Yes Treatment Response Procedure Tolerated Well Vital Signs Temperature (97.8 F-99.1 F) Temperature Source Pulse Rate (60-100) Pulse Location Blood Pressure (90/60-120/80) Blood Pressure Mean Source Pain Scale: 0-10 Numeric Is Patient Pain Free? Yes Teaching: Wound Center Dressing Your Wound -Person Taught Patient -Teaching Method Discussion, Demonstration -Response to teaching Verbalize understanding Control Swelling with Leg Elevation -Person Taught Patient -Teaching Method Discussion -Response to teaching Verbalize understanding WC - Visit Discharge Discharge Condition Stable Ambulatory Status Ambulatory Transportation Private Auto Accompanied by self Medication Reconcilliation completed & No provided to patient/care provider Clinical Summary of Care Provided Yes Notes: Assessment/Plan Assessment/Plan (1) Leg ulcer, left: CODE(S): L97.929 - Non-pressure chronic ulcer of unspecified part of left lower leg with unspecified severity QUALIFIERS: Non-pressure ulcer stage: with fat layer exposed Qualified Code(s): L97.922 - Non-pressure chronic ulcer of unspecified part of left lower leg with fat layer exposed (2) Venous ulcer of left leg: CODE(S): I83.029 - Varicose veins of left lower extremity with ulcer of unspecified site; L97.929 - Non-pressure chronic ulcer of unspecified part of left lower leg with unspecified severity (3) Left leg swelling: CODE(S): M79.89 - Other specified soft tissue disorders (4) Right leg swelling: CODE(S): M79.89 - Other specified soft tissue disorders (5) Hyperpigmentation: CODE(S): L81.9 - Disorder of pigmentation, unspecified (6) Lipodermatosclerosis of both lower extremities: CODE(S): I83.11 - Varicose veins of right lower extremity with inflammation; I83.12 - Varicose veins of left lower extremity with inflammation (7) Morbid obesity with BMI of 45.0-49.9, adult: CODE(S): E66.01 - Morbid (severe) obesity due to excess calories; Z68.42 - Body mass index [BMI] 45.0-49.9, adult (8) Hypertension: CODE(S): I10 - Essential (primary) hypertension (9) Chronic venous insufficiency of lower extremity: CODE(S): I87.2 - Venous insufficiency (chronic) (peripheral) (10) Diabetes mellitus: CODE(S): E11.9 - Type 2 diabetes mellitus without complications (11) Hypothyroidism: CODE(S): E03.9 - Hypothyroidism, unspecified (12) Hypertriglyceridemia: CODE(S): E78.1 - Pure hyperglyceridemia (13) History of gout: CODE(S): Z87.39 - Personal history of other diseases of the musculoskeletal system and connective tissue (14) Fatty liver: CODE(S): K76.0 - Fatty (change of) liver, not elsewhere classified (15) History of vertigo: CODE(S): Z87.898 - Personal history of other specified conditions (16) History of gastrointestinal hemorrhage: CODE(S): Z87.19 - Personal history of other diseases of the digestive system (17) History of hemorrhoids: CODE(S): Z87.19 - Personal history of other diseases of the digestive system PLAN: Plan This is a 51-year-old male who is morbidly obese, and with a history of multiple pre-existing medical problems. He has a longstanding history of swelling and edema in his lower extremities, and has had prior episodes of spontaneous ulcerations in his lower extremities, thought to be secondary to chronic venous insufficiency. His ulcerations had been present for approximately 3 to 4 weeks, located in the left heath-medial calf. A lengthy discussion has been undertaken as to the conservative treatment measures appropriate to the jones monique's management. The patient sleeps on a flat mattress at night. This has been encouraged. Additionally, the patient has been advised to elevate his lower extremities is much as possible during daytime hours. Leg elevation is to be to heart level, or higher. Prolonged idle sitting has been discouraged. Activity has been encouraged. Weight loss has also been recommended. It is noted that the patient has voluntarily and purposely lost approximately 65 pounds in recent months. The patient has discomfort and pain in his lower extremities, and nonsteroidal anti-inflammatory medications have been advised. The patient has a recent ulceration on the left anterior tibial surface which is a result of recent trauma. It is very superficial. We are to continue the use of Promogran, which will be applied by the patient topically on a daily basis. Compression is to be implemented by means of graduated compression stockings of 20 to 30 mmHg compression. All other lower extremity ulcerations have now healed. 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 Leg elevation has been advised is much as possible, to heart level, or higher. Long-term lifestyle modification has been discussed, implementing conservative treatment measures as discussed above in an effort to prevent recurrence of ulcerations in his lower extremities. The patient is to return in 2 weeks for reevaluation. We are to seek preauthorization for the use of EpiFix topically relative to the patient's left lower extremity wound. Total time: 29 minutes
== END 2022-03-06 23:59 | disposition home or self-care (01) ==
LOC: WC 09:30
PROVIDERS: PCP Internal Medicine; Visit Provider Surgery
DX: I83.022 Varicose veins of left lower extremity with ulcer of calf (principal); E11.622 Type 2 diabetes mellitus with other skin ulcer; L97.222 Non-pressure chronic ulcer of left calf with fat layer exposed; E11.59 Type 2 diabetes mellitus with other circulatory complications; E66.01 Morbid (severe) obesity due to excess calories; Z68.42 Body mass index [BMI] 45.0-49.9, adult; E03.9 Hypothyroidism, unspecified; M10.9 Gout, unspecified; I87.2 Venous insufficiency (chronic) (peripheral); I10 Essential (primary) hypertension; Z79.899 Other long term (current) drug therapy; Z79.890 Hormone replacement therapy
CPT/HCPCS: 11042; 11045; 29580; 99213; G0463

== ENCOUNTER 2022-04-04 09:45 | Outpatient (RCR) | payer OTHER, SELFPAY ==
[2022-03-07 00:10] VITALS: BP 149/69; PULSE 61; RESP 18; TEMP 36.6; BMI 49.4
[2022-03-07 09:46] VITALS: BP 146/75; PULSE 76; RESP 22; TEMP 35.8; BMI 49.4
--- NOTE | 2022-03-07 12:40 | HP.PCM_ITS ---
History of Present Illness Date of Service: 03/07/22 Chief Complaint: Left lower extremity ulcerations History of Wound: This is a 51-year-old morbidly obese male with multiple pre- existing medical problems. He presented with ulcerations on the medial aspect of his left calf, which had been present for approximately 3 to 4 weeks. They occurred spontaneously. He has previously suffered from ulcerations in his lower extremities, which occurred as a result of chronic venous insufficiency. Prior ulcerations have healed spontaneously. The patient had been using topical preparations such as chlorhexidine and Betadine. He had been treated by his primary care physician with courses of oral Keflex and tetracycline, which have been completed. He experiences swelling in both lower extremities, which is said to be worse at the end of each day. His swelling has occurred for many years. He sleeps on a flat mattress at night. He is active, and seeks exercise by means of swimming. He denies a history of thrombophlebitis. In recent months, the patient has lost approximately 65 pounds purposefully. 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 Recently, the patient's primary care physician increased his dose of Lasix in an attempt to address issues related to lower extremity swelling. [facility] Medical History Chronic venous insufficiency of lower extremity Diabetes mellitus Fatty liver History of gastrointestinal hemorrhage History of gout History of hemorrhoids History of vertigo Hyperpigmentation Hypertension Hypertriglyceridemia Hypothyroidism Left leg swelling Leg ulcer, left Lipodermatosclerosis of both lower extremities Morbid obesity with BMI of 45.0-49.9, adult Right leg swelling Venous ulcer of left leg Home Medications allopurinol 300 mg tablet 300 mg PO DAILY 01/10/22 [History Last Taken Unknown] clonidine HCl 0.2 mg tablet 0.2 mg PO BID 01/10/22 [History Last Taken Unknown] diltiazem HCl 360 mg PO/SL DAILY 01/10/22 [History Last Taken Unknown] fluoxetine 40 mg capsule (Prozac) 40 mg PO DAILY 01/10/22 [History Last Taken Unknown] furosemide 40 mg tablet (Lasix) 40 mg PO BID 01/10/22 [History Last Taken Unknown] levothyroxine 25 mcg capsule 25 mcg PO DAILY 01/10/22 [History Last Taken Unknown] losartan 100 mg tablet 100 mg PO DAILY 01/10/22 [History Last Taken Unknown] metoprolol succinate 100 mg tablet,extended release 24 hr 100 mg PO 1XD 01/10/22 [History Last Taken Unknown] Allergy/AdvReac Type Severity Reaction Status Date / Time ibuprofen Allergy Other Verified 01/10/22 10:50 aripiprazole [From Abilify] AdvReac Other Verified 01/10/22 10:50 Vital Signs Vital Signs Vital Signs: 03/07/22 09:46 03/07/22 00:10 Temperature 96.5 F L 97.8 F Temperature Source Temporal Pulse Rate 76 61 Respiratory Rate 22 H 18 Blood Pressure 146/75 H 149/69 H Blood Pressure Mean 98 95 Blood Pressure Source Monitor Blood Pressure Location Right Arm Weight Weight: 395 lb 13.214 oz Body Mass Index (BMI) 49.4 Physical Exam Const alert, oriented x3, no apparent distress and well nourished Constitutional Narrative: The patient is morbidly obese. General Appearance: cooperative, comfortable, well kempt and well developed Orientation / Consciousness: awake, oriented to person, oriented to place and oriented to time Exam Limitations: no limitations HEENT normocephalic, head/scalp atraumatic and hearing grossly normal bilaterally Head and Scalp: normal to inspection, normocephalic and atraumatic External Ear: external ears normal Eyes PERRL and EOMs intact bilaterally General Eye: normal appearance of both eyes Resp normal respiratory effort, normal air movement, no retractions and no use of accessory muscles Effort and Inspection: able to speak in complete sentences GI GI Narrative: The abdomen is obese. Rectal Exam: deferred Extremity no calf tenderness General Extremity: Negative for clubbing or cyanosis Skin Wound Narrative: The patient now has only 1 wound on the left pretibial area which is recent and new since his initial visit. It is traumatic in nature. He fell and sustained trauma to the area. He placed a Band-Aid topically, which he removed the following day, only to bring considerable amount of epidermis and dermis with the adhesive portion of the Band-Aid. Dimensions are documented elsewhere. The wound appears slightly smaller in size than noted previously. There is no sign of infection or cellulitis. There is a small amount of bioburden. Hyperpigmentation and lipodermatosclerosis are noted in the gaiter areas bilaterally, rather severe in nature. No significant swelling or edema are noted in the left lower extremity. Neuro oriented x3, CN's II-XII intact bilaterally, moves all extremities and no focal motor deficits Sensorium / Orientation: awake, alert, oriented to person, oriented to place and oriented to time Psych Appearance: grossly normal and appropriate Attitude: calm Activity / Motor Behavior: appropriate eye contact Speech: normal speech Mood & Affect: euthymic mood Thought Process: normal thought process Thought Content: normal thought content Attention / Concentration: attention grossly intact Debridement Note Debridement Note Wound debrided: Left lower extremity; anterolateral calf (pre-tibial) Laterality: Left Type of Debridement: Excisional debridement Anesthesia Used: 5% Lidocaine Gel Depth: Down to and including healthy tissue and in the subcutaneous layer Percentage of wound debrided: 100 Instrument Used: 5mm curette Tissue Removed: Bioburden Severity: Fat Layer Exposed Amount of bleeding with debridement: Mild Bleeding Controlled with: Compression and gauze Patient tolerated procedure: Patient tolerated procedure well Debridement Free Text: Following a routine excisional debridement, which was well-tolerated by the patient, an 18 mm EpiFix allograft was placed topically. The entirety of the allograft was utilized. Upon removal from its sterile packaging, the allograft was placed topically on the traumatic wound in the appropriate orientation. Adaptic Touch was then placed, and anchored using Steri-Strips. A small amount of collagen hydrogel was placed overlying the Adaptic Touch, and a dry sterile gauze dressing was placed. Patient tolerated the procedure well. No debridement was completed: No debridement was completed today (Debridement was not performed. 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 ) Arrival Mode Ambulatory Transfer Assistance None Patient Identification Verified (Name & Yes ) Patient Requires Transmission-Based No Precautions Height and Weight Body Mass Index (BMI) 49.4 BMI Classification Obese Vital Signs Temperature (97.8 F-99.1 F) 96.5 F L Temperature Source Temporal Pulse Rate (60-100) 76 Pulse Location Monitor Respiratory Rate (12-18) 22 H Respiratory rate source Observation Blood Pressure (90/60-120/80) 146/75 H Blood Pressure Mean 98 Source Monitor History Since Last Visit- (Skip if this is Patient's initial visit) Have you changed medications since your No last visit? Any new allergies or adverse reactions No Had a fall/change in ADL's that may No increase risk of falls Signs or symptoms of abuse and/or No neglect since last visit Have you been in the hospital since your No last visit? Has dressing in place as prescribed Yes Has compression in place as prescribed Yes Has offloadiing in place as prescribed N/A Experienced any changes in pain level or No management Pain Scale: 0-10 Numeric Is Patient Pain Free? Yes WC - Nurse 1 - General Ulcer Measurement Start: 03/07/22 09:46 Freq: Status: Active Protocol: Activity Type Activity Date Activity User E-sign Co-sign Detail Recorded Client Recorded Date Recorded By Document 03/07/22 09:46 DL Desktop 03/07/22 09:50 DL 03/07/22 09:46 Wound Center Nurse 1 #2 Left lower extremity -Current Size (cm) - Length 0.4 -Current Size (cm) - Width 0.7 -Current Size (cm) - Depth 0.1 -Total Square Cm 0.28 -Photo Taken No -Exudate Amt Small -Exudate Type Serosanguineous -Wound Margin Distinct, Outline Attached -Granulation Amt Large (67-100%) -Granulation Quality Pale,Cando -Necrosis Amt None Present (0 %) -Structure Exposed N/A -Texture (Mahnaz-wound Skin Appearance) Scarring -Moisture (Mahnaz-wound Skin Appearance) No Abnormality -Color (Mahnaz-wound Skin Appearance) Hemosiderin Staining -Temperature (Mahnaz-wound Skin No Abnormality Appearance) (Pt Warm) -Tenderness on Palpation (Mahnaz-wound No Skin Appearance) -Ulcer Cleansing Rinsed/ Irrigated with Saline -Foul Odor after Cleansing No -Anesthetic Used 5% Lidocaine Gel Left Calf (cm) 45.5 Left Ankle (cm) 25.5 WC - Nurse 2 - General Ulcer CM Notes Start: 03/07/22 09:46 Freq: Status: Active Protocol: Activity Type Activity Date Activity User E-sign Co-sign Detail Recorded Client Recorded Date Recorded By Document 03/07/22 12:08 PL [id number] 03/07/22 12:09 PL 03/07/22 12:08 Wound Center Nurse 2 #2 Left lower extremity -Time 09:56 -Correct Patient Yes -Correct Side, Site, Position Yes -Correct Procedure Yes -Procedure Performed Yes -Type of Procedure Debridement -Clinical Debridement Subcutaneous -Tissue Removed Subcutaneous -Post Debridement (cm) - Length 0.4 -Post Debridement (cm) - Width 0.7 -Post Debridement (cm) - Depth 0.1 -Total Square (Post) (cm) 0.28 -Area of Debridement (cm) - Length 0.4 -Area of Debridement (cm) - Width 0.7 -Total Square (Area) (cm) 0.28 -Tunneling No -Undermining/Tunneling No -Circular Undermining No -Wound/Ulcer Outcome Not Healed -Ulcer Cleansing Rinsed/ Irrigated with Saline -Foul Odor after Cleansing No -Bioengineered Tissue Yes -Type of Bioengineered Tissue Epifix 18mm Disc -Expiration Date 12/05/26 -Product Lot Number [id number] -Percent Used 100 -Bleeding Controlled with Pressure -Treatment Response Procedure Tolerated Well -Debridement - Subq, 1st 20sq cm No -Apply Skin Sub - 1st 25 sq cm - Legs 1 -Epifix 18mm Disc 3 Pain Scale: 0-10 Numeric Is Patient Pain Free? Yes - Nurse 3 - General Ulcer D/C NN Start: 03/07/22 09:46 Freq: Status: Active Protocol: Activity Type Activity Date Activity User E-sign Co-sign Detail Recorded Client Recorded Date Recorded By Document 03/07/22 10:11 DL Desktop 03/07/22 10:12 DL 03/07/22 10:11 Wound Care Nurse 3 #2 Left lower extremity -Foul Odor after Cleansing No -Other Dressing Epifix -Primary Dressing Covered/Secured with Dry Gauze & Roll Gauze, Secured with Tape susie -Stockings Yes Treatment Response Procedure Tolerated Well Pain Scale: 0-10 Numeric Is Patient Pain Free? Yes WC - Visit Discharge Discharge Condition Stable Ambulatory Status Ambulatory Transportation Private Auto Assessment/Plan Assessment/Plan (1) Leg ulcer, left: CODE(S): L97.929 - Non-pressure chronic ulcer of unspecified part of left lower leg with unspecified severity QUALIFIERS: Non-pressure ulcer stage: with fat layer exposed Xu lified Code(s): L97.922 - Non-pressure chronic ulcer of unspecified part of left lower leg with fat layer exposed (2) Venous ulcer of left leg: CODE(S): I83.029 - Varicose veins of left lower extremity with ulcer of unspecified site; L97.929 - Non-pressure chronic ulcer of unspecified part of left lower leg with unspecified severity (3) Left leg swelling: CODE(S): M79.89 - Other specified soft tissue disorders (4) Right leg swelling: CODE(S): M79.89 - Other specified soft tissue disorders (5) Hyperpigmentation: CODE(S): L81.9 - Disorder of pigmentation, unspecified (6) Lipodermatosclerosis of both lower extremities: CODE(S): I83.11 - Varicose veins of right lower extremity with inflam mation; I83.12 - Varicose veins of left lower extremity with inflammation (7) Morbid obesity with BMI of 45.0-49.9, adult: CODE(S): E66.01 - Morbid (severe) obesity due to excess calories; Z68.42 - Body mass index [BMI] 45.0-49.9, adult (8) Hypertension: CODE(S): I10 - Essential (primary) hypertension (9) Chronic venous insufficiency of lower extremity: CODE(S): I87.2 - Venous insufficiency (chronic) (peripheral) (10) Diabetes mellitus: CODE(S): E11.9 - Type 2 diabetes mellitus without complications (11) Hypothyroidism: CODE(S): E03.9 - Hypothyroidism, unspecified (12) Hypertriglyceridemia: CODE(S): E78.1 - Pure hyperglyceridemia (13) History of gout: CODE(S): Z87.39 - Personal history of other diseases of the musculoskeletal system and connective tissue (14) Fatty liver: CODE(S): K76.0 - Fatty (change of) liver, not elsewhere classified (15) History of vertigo: CODE(S): Z87.898 - Personal history of other specified conditions (16) History of gastrointestinal hemorrhage: CODE(S): Z87.19 - Personal history of other diseases of the digestive system (17) History of hemorrhoids: CODE(S): Z87.19 - Personal history of other diseases of the digestive system PLAN: Plan This is a 51-year-old male who is morbidly obese, and with a history of multiple pre-existing medical problems. He has a longstanding history of swelling and edema in his lower extremities, and has had prior episodes of spontaneous ulcerations in his lower extremities, thought to be secondary to chronic venous insufficiency. His ulcerations had been present for approximately 3 to 4 weeks, located in the left heath-medial calf. A lengthy discussion has been undertaken as to the conservative treatment measures appropriate to the patient's management. The patient sleeps on a flat mattress at night. This has been encouraged. Additionally, the patient has been advised to elevate his lower extremities is much as possible during daytime hours. Leg elevation is to be to heart level, or higher. Prolonged idle sitting has been discouraged. Activity has been encouraged. Weight loss has also been recommended. It is noted that the patient has voluntarily and purposely lost approximately 65 pounds in recent months. The patient has discomfort and pain in his lower extremities, and nonsteroidal anti-inflammatory medications have been advised. The patient has a recent ulceration on the left anterior tibial surface which is a result of recent trauma. It is very superficial. We have placed an EpiFix allograft today, the first such allograft application. The allograft and its associated dressing are to be left in place intact for the next week, and kept dry. Compression is to be continued by means of graduated compression stockings of 20 to 30 mmHg compression. All other lower extremity ulcerations have now healed. 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 Leg elevation has been advised is much as possible, to heart level, or higher. Long-term lifestyle modification has been discussed, implementing conservative treatment measures as discussed above in an effort to prevent recurrence of ulcerations in his lower extremities. The patient is to return in 1 week for reevaluation. It is anticipated that a series of allograft applications will be of benefit in the healing process. Total time: 28 minutes
[2022-03-14 09:35] VITALS: BP 161/87; PULSE 74; TEMP 36.4; BMI 49.4
--- NOTE | 2022-03-14 14:20 | HP.PCM_ITS ---
History of Present Illness Date of Service: 03/14/22 Chief Complaint: Left lower extremity ulcerations History of Wound: This is a 52-year-old morbidly obese male with multiple pre- existing medical problems. He presented with ulcerations on the medial aspect of his left calf, which had been present for approximately 3 to 4 weeks. They occurred spontaneously. He has previously suffered from ulcerations in his lower extremities, which occurred as a result of chronic venous insufficiency. Prior ulcerations have healed spontaneously. The patient had been using topical preparations such as chlorhexidine and Betadine. He had been treated by his primary care physician with courses of oral Keflex and tetracycline, which have been completed. He experiences swelling in both lower extremities, which is said to be worse at the end of each day. His swelling has occurred for many years. He sleeps on a flat mattress at night. He is active, and seeks exercise by means of swimming. He denies a history of thrombophlebitis. In recent months, the patient has lost approximately 65 pounds purposefully. 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 Recently, the patient's primary care physician increased his dose of Lasix in an attempt to address issues related to lower extremity swelling. [facility] Medical History Chronic venous insufficiency of lower extremity Diabetes mellitus Fatty liver History of gastrointestinal hemorrhage History of gout History of hemorrhoids History of vertigo Hyperpigmentation Hypertension Hypertriglyceridemia Hypothyroidism Left leg swelling Leg ulcer, left Lipodermatosclerosis of both lower extremities Morbid obesity with BMI of 45.0-49.9, adult Right leg swelling Venous ulcer of left leg Home Medications allopurinol 300 mg tablet 300 mg PO DAILY 01/10/22 [History Last Taken Unknown] clonidine HCl 0.2 mg tablet 0.2 mg PO BID 01/10/22 [History Last Taken Unknown] diltiazem HCl 360 mg PO/SL DAILY 01/10/22 [History Last Taken Unknown] fluoxetine 40 mg capsule (Prozac) 40 mg PO DAILY 01/10/22 [History Last Taken Unknown] furosemide 40 mg tablet (Lasix) 40 mg PO BID 01/10/22 [History Last Taken Unknown] levothyroxine 25 mcg capsule 25 mcg PO DAILY 01/10/22 [History Last Taken Unknown] losartan 100 mg tablet 100 mg PO DAILY 01/10/22 [History Last Taken Unknown] metoprolol succinate 100 mg tablet,extended release 24 hr 100 mg PO 1XD 01/10/22 [History Last Taken Unknown] Allergy/AdvReac Type Severity Reaction Status Date / Time ibuprofen Allergy Other Verified 01/10/22 10:50 aripiprazole [From Abilify] AdvReac Other Verified 01/10/22 10:50 Vital Signs Vital Signs Vital Signs: 03/14/22 09:35 Temperature 97.6 F L Temperature Source Temporal Pulse Rate 74 Blood Pressure 161/87 H Blood Pressure Mean 111 Blood Pressure Source Monitor Blood Pressure Position Semi-Fowlers Blood Pressure Location Left Arm Weight Weight: 395 lb 13.214 oz Body Mass Index (BMI) 49.4 Physical Exam Const alert, oriented x3, no apparent distress and well nourished Constitutional Narrative: The patient is morbidly obese. General Appearance: cooperative, comfortable, well kempt and well developed Orientation / Consciousness: awake, oriented to person, oriented to place and oriented to time Exam Limitations: no limitations HEENT normocephalic, head/scalp atraumatic and hearing grossly normal bilaterally Head and Scalp: normal to inspection, normocephalic and atraumatic External Ear: external ears normal Eyes PERRL and EOMs intact bilaterally General Eye: normal appearance of both eyes Resp normal respiratory effort, normal air movement, no retractions and no use of accessory muscles Effort and Inspection: able to speak in complete sentences GI GI Narrative: The abdomen is obese. Rectal Exam: deferred Extremity no calf tenderness General Extremity: Negative for clubbing or cyanosis Skin Wound Narrative: The patient now has only 1 wound on the left pretibial area which is recent and new since his initial visit. It is traumatic in nature. He fell and sustained trauma to the area. He placed a Band-Aid topically, which he removed the following day, only to bring considerable amount of epidermis and dermis with the adhesive portion of the Band-Aid. An EpiFix allograft was placed 1 week ago. Dimensions are documented elsewhere. The wound appears slightly smaller in size than noted previously. There is no sign of infection or cellulitis. Hyperpigmentation and lipodermatosclerosis are noted in the gaiter areas bilaterally, rather severe in nature. No significant swelling or edema are noted in the left lower extremity. Neuro oriented x3, CN's II-XII intact bilaterally, moves all extremities and no focal motor deficits Sensorium / Orientation: awake, alert, oriented to person, oriented to place and oriented to time Psych Appearance: grossly normal and appropriate Attitude: calm Activity / Motor Behavior: appropriate eye contact Speech: normal speech Mood & Affect: euthymic mood Thought Process: normal thought process Thought Content: normal thought content Attention / Concentration: attention grossly intact Debridement Note Debridement Note No debridement was completed: No debridement was completed today Post-Debridement Measurements and Additional Note: Post-Debridement Measurements/Treatment - Nurse 1 - General Ulcer Assessment Start: 03/07/22 09:46 Freq: Status: Active Protocol: [email or web address] Activity Type Activity Date Activity User E-sign Co-sign Detail Recorded Client Recorded Date Recorded By Document 03/07/22 09:46 DL Desktop 03/07/22 09:50 DL Document 03/14/22 09:35 KR [id number] 03/14/22 09:38 KR 03/07/22 03/14/22 09:46 09:35 - Today's Visit Information Type of service Follow-up Visit Follow-up Visit (Physician/TRUCK RENTAL SERVICE ATTENDANT (Physician/TRUCK RENTAL SERVICE ATTENDANT ) ) Arrival Mode Ambulatory Ambulatory Transfer Assistance None Patient Identification Verified (Name & Yes Yes ) Patient Requires Transmission-Based No Precautions Height and Weight Body Mass Index (BMI) 49.4 49.4 BMI Classification Obese Obese Vital Signs Temperature (97.8 F-99.1 F) 96.5 F L 97.6 F L Temperature Source Temporal Temporal Pulse Rate (60-100) 76 74 Pulse Location Monitor Monitor Respiratory Rate (12-18) 22 H Respiratory rate source Observation Blood Pressure (90/60-120/80) 146/75 H 161/87 H Blood Pressure Mean 98 111 Source Monitor Monitor Position Semi-Fowlers Blood Pressure Location Left Arm History Since Last Visit- (Skip if this is Patient's initial visit) Have you changed medications since your No No last visit? Any new allergies or adverse reactions No No Had a fall/change in ADL's that may No No increase risk of falls Signs or symptoms of abuse and/or No No neglect since last visit Have you been in the hospital since your No No last visit? Has dressing in place as prescribed Yes Yes Has compression in place as prescribed Yes N/A Has offloadiing in place as prescribed N/A N/A Experienced any changes in pain level or No No management Left Footwear Regular Shoe Right Footwear Regular Shoe Pain Scale: 0-10 Numeric Is Patient Pain Free? Yes Yes WC - Nurse 1 - General Ulcer Measurement Start: 03/07/22 09:46 Freq: Status: Active Protocol: Activity Type Activity Date Activity User E-sign Co-sign Detail Recorded Client Recorded Date Recorded By Document 03/07/22 09:46 DL Desktop 03/07/22 09:50 DL Document 03/14/22 09:35 KR [id number] 03/14/22 09:38 KR 03/07/22 03/14/22 09:46 09:35 Wound Center Nurse 1 #2 Left lower extremity -Current Size (cm) - Length 0.4 0.2 -Current Size (cm) - Width 0.7 0.4 -Current Size (cm) - Depth 0.1 0.1 -Total Square Cm 0.28 0.08 -Photo Taken No -Exudate Amt Small Small -Exudate Type Serosanguineous Serosanguineous -Wound Margin Distinct, Distinct, Outline Outline Attached Attached -Granulation Amt Large (67-100%) Small (1-33%) -Granulation Quality Pale,[place] -Necrosis Amt None Present (0 %) -Necrotic Tissue Type Adherent Slough -Structure Exposed N/A -Texture (Mahnaz-wound Skin Appearance) Scarring Assessed -Moisture (Mahnaz-wound Skin Appearance) No Abnormality No Abnormality, Assessed -Color (Mahnaz-wound Skin Appearance) Hemosiderin No Abnormality, Staining Assessed -Temperature (Mahnaz-wound Skin No Abnormality No Abnormality Appearance) (Pt Warm) (Pt Warm) -Tenderness on Palpation (Mahnaz-wound No No Skin Appearance) -Ulcer Cleansing Rinsed/ Rinsed/ Irrigated with Irrigated with Saline Saline -Foul Odor after Cleansing No No -Anesthetic Used 5% Lidocaine 5% Lidocaine Gel Gel Left Calf (cm) 45.5 Left Ankle (cm) 25.5 WC - Nurse 2 - General Ulcer CM Notes Start: 03/07/22 09:46 Freq: Status: Active Protocol: Activity Type Activity Date Activity User E-sign Co-sign Detail Recorded Client Recorded Date Recorded By Document 03/07/22 12:08 PL [id number] 03/07/22 12:09 PL Document 03/14/22 09:59 PL [id number] 03/14/22 09:59 PL 03/07/22 03/14/22 12:08 09:59 Wound Center Nurse 2 #2 Left lower extremity -Time 09:56 09:50 -Correct Patient Yes -Correct Side, Site, Position Yes -Correct Procedure Yes -Procedure Performed Yes No -Type of Procedure Debridement -Clinical Debridement Subcutaneous -Tissue Removed Subcutaneous -Post Debridement (cm) - Length 0.4 0.2 -Post Debridement (cm) - Width 0.7 0.4 -Post Debridement (cm) - Depth 0.1 0.1 -Total Square (Post) (cm) 0.28 0.08 -Area of Debridement (cm) - Length 0.4 -Area of Debridement (cm) - Width 0.7 -Total Square (Area) (cm) 0.28 -Tunneling No -Undermining/Tunneling No -Circular Undermining No -Wound/Ulcer Outcome Not Healed -Ulcer Cleansing Rinsed/ Irrigated with Saline -Foul Odor after Cleansing No -Bioengineered Tissue Yes -Type of Bioengineered Tissue Epifix 18mm Disc -Expiration Date 12/05/26 -Product Lot Number [id number] -Percent Used 100 -Bleeding Controlled with Pressure -Treatment Response Procedure Tolerated Well -Debridement - Subq, 1st 20sq cm No -Apply Skin Sub - 1st 25 sq cm - Legs 1 -Epifix 18mm Disc 3 Pain Scale: 0-10 Numeric Is Patient Pain Free? Yes Yes WC - Nurse 3 - General Ulcer D/C NN Start: 03/07/22 09:46 Freq: Status: Active Protocol: Activity Type Activity Date Activity User E-sign Co-sign Detail Recorded Client Recorded Date Recorded By Document 03/07/22 10:11 DL Desktop 03/07/22 10:12 DL Document 03/14/22 10:04 MW [id number] 03/14/22 10:06 MW 03/07/22 03/14/22 10:11 10:04 Wound Care Nurse 3 #2 Left lower extremity -Ulcer Cleansing Not Cleansed -Foul Odor after Cleansing No No -Negative Pressure Wound Therapy N/A -Other Dressing Epifix -Primary Dressing Covered/Secured with Dry Gauze & Dry Gauze & Roll Gauze, Roll Gauze, Secured with Secured with Tape Tape Left -Lotion applied to leg before No compression wrap -Stockings Yes suise -Stockings Yes Treatment Response Procedure Procedure Tolerated Well Tolerated Well Pain Scale: 0-10 Numeric Is Patient Pain Free? Yes Yes Teaching: Wound Center Dressing Your Wound -Person Taught Patient -Teaching Method Discussion, Demonstration -Response to teaching Verbalize understanding WC - Visit Discharge Discharge Condition Stable Stable Ambulatory Status Ambulatory Ambulatory Transportation Private Auto Private Auto Accompanied by self Medication Reconcilliation completed & No provided to patient/care provider Clinical Summary of Care Provided Yes Assessment/Plan Assessment/Plan (1) Leg ulcer, left: CODE(S): L97.929 - Non-pressure chronic ulcer of unspecified part of left lower leg with unspecified severity QUALIFIERS: Non-pressure ulcer stage: with fat layer exposed Qualified Code(s): L97.922 - Non-pressure chronic ulcer of unspecified part of left lower leg with fat layer exposed (2) Venous ulcer of left leg: CODE(S): I83.029 - Varicose veins of left lower extremity with ulcer of unspecified site; L97.929 - Non-pressure chronic ulcer of unspecified part of left lower leg with unspecified severity (3) Left leg swelling: CODE(S): M79.89 - Other specified soft tissue disorders (4) Right leg swelling: CODE(S): M79.89 - Other specified soft tissue disorders (5) Hyperpigmentation: CODE(S): L81.9 - Disorder of pigmentation, unspecified (6) Lipodermatosclerosis of both lower extremities: CODE(S): I83.11 - Varicose veins of right lower extremity with inflammation; I83.12 - Varicose veins of left lower extremity with inflammation (7) Morbid obesity with BMI of 45.0-49.9, adult: CODE(S): E66.01 - Morbid (severe) obesity due to excess calories; Z68.42 - Body mass index [BMI] 45.0-49.9, adult (8) Hypertension: CODE(S): I10 - Essential (primary) hypertension (9) Chronic venous insufficiency of lower extremity: CODE(S): I87.2 - Venous insufficiency (chronic) (peripheral) (10) Diabetes mellitus: CODE(S): E11.9 - Type 2 diabetes mellitus without complications (11) Hypothyroidism: CODE(S): E03.9 - Hypothyroidism, unspecified (12) Hypertriglyceridemia: CODE(S): E78.1 - Pure hyperglyceridemia (13) History of gout: CODE(S): Z87.39 - Personal history of other diseases of the musculoskeletal system and connective tissue (14) Fatty liver: CODE(S): K76.0 - Fatty (change of) liver, not elsewhere classified (15) History of vertigo: CODE(S): Z87.898 - Personal history of other specified conditions (16) History of gastrointestinal hemorrhage: CODE(S): Z87.19 - Personal history of other diseases of the digestive system (17) History of hemorrhoids: CODE(S): Z87.19 - Personal history of other diseases of the digestive system PLAN: Plan This is a 52-year-old male who is morbidly obese, and with a history of multiple pre-existing medical problems. He has a longstanding history of swelling and edema in his lower extremities, and has had prior episodes of spontaneous ulcerations in his lower extremities, thought to be secondary to chronic venous insufficiency. His ulcerations had been present for approximately 3 to 4 weeks, located in the left heath-medial calf. A lengthy discussion has been undertaken as to the conservative treatment measures appropriate to the patient's management. The patient sleeps on a flat mattress at night. This has been encouraged. Additionally, the patient has been advised to elevate his lower extremities is much as possible during daytime hours. Leg elevation is to be to heart level, or higher. Prolonged idle sitting has been discouraged. Activity has been encouraged. Weight loss has also been recommended. It is no edwin that the patient has voluntarily and purposely lost approximately 65 pounds in recent months. The patient has discomfort and pain in his lower extremities, and nonsteroidal anti-inflammatory medications have been advised. The patient has a recent ulceration on the left heath-medial calf which is a result of recent trauma. We placed an EpiFix allograft 1 week ago, the first such allograft application. The allograft and its associated dressing remained in place, and the wound appears smaller in size. Compression is to be continued by means of graduated compression stockings of 20 to 30 mmHg compression. All other lower extremity ulcerations have now healed. 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 Leg elevation has been advised is much as possible, to heart level, or higher. Long-term lifestyle modification has been discussed, implementing conservative treatment measures as discussed above in an effort to prevent recurrence of ulcerations in his lower extremities. The patient is to return in 1 week for reevaluation. It is anticipated that a series of allograft applications will be of benefit in the healing process. We are to seek preauthorization for additional allograft applications from the patient's commercial insurance company. Total time: 29 minutes
[2022-03-21 09:47] VITALS: BP 157/74; PULSE 64; TEMP 35.9; BMI 49.4
--- NOTE | 2022-03-21 11:44 | PCM.WC.HP ---
History of Present Illness Date of Service: 03/21/22 Chief Complaint: Left lower extremity ulcerations History of Wound: This is a 52-year-old morbidly obese male with multiple pre-existing medical problems. He presented with ulcerations on the medial aspect of his left calf, which had been present for approximately 3 to 4 weeks. They occurred spontaneously. He has previously suffered from ulcerations in his lower extremities, which occurred as a result of chronic venous insufficiency. Prior ulcerations have healed spontaneously. The patient had been using topical preparations such as chlorhexidine and Betadine. He had been treated by his primary care physician with courses of oral Keflex and tetracycline, which have been completed. He experiences swelling in both lower extremities, which is said to be worse at the end of each day. His swelling has occurred for many years. He sleeps on a flat mattress at night. He is active, and seeks exercise by means of swimming. He denies a history of thrombophlebitis. In recent months, the patient has lost approximately 65 pounds purposefully. 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 Recently, the patient's primary care physician increased his dose of Lasix in an attempt to address issues related to lower extremity swelling. [facility] Medical History Chronic venous insufficiency of lower extremity Diabetes mellitus Fatty liver History of gastrointestinal hemorrhage History of gout History of hemorrhoids History of vertigo Hyperpigmentation Hypertension Hypertriglyceridemia Hypothyroidism Left leg swelling Leg ulcer, left Lipodermatosclerosis of both lower extremities Morbid obesity with BMI of 45.0-49.9, adult Right leg swelling Venous ulcer of left leg Home Medications allopurinol 300 mg tablet 300 mg PO DAILY 01/10/22 [History Last Taken Unknown] clonidine HCl 0.2 mg tablet 0.2 mg PO BID 01/10/22 [History Last Taken Unknown] diltiazem HCl 360 mg PO/SL DAILY 01/10/22 [History Last Taken Unknown] fluoxetine 40 mg capsule (Prozac) 40 mg PO DAILY 01/10/22 [History Last Taken Unknown] furosemide 40 mg tablet (Lasix) 40 mg PO BID 01/10/22 [History Last Taken Unknown] levothyroxine 25 mcg capsule 25 mcg PO DAILY 01/10/22 [History Last Taken Unknown] losartan 100 mg tablet 100 mg PO DAILY 01/10/22 [History Last Taken Unknown] metoprolol succinate 100 mg tablet,extended release 24 hr 100 mg PO 1XD 01/10/22 [History Last Taken Unknown] Allergy/AdvReac Type Severity Reaction Status Date / Time ibuprofen Allergy Other Verified 01/10/22 10:50 aripiprazole [From Abilify] AdvReac Other Verified 01/10/22 10:50 Vital Signs Vital Signs Vital Signs: 03/21/22 09:47 Temperature 96.7 F L Temperature Source Temporal Pulse Rate 64 Blood Pressure 157/74 H Blood Pressure Mean 101 Blood Pressure Source Monitor Blood Pressure Position Semi-Fowlers Blood Pressure Location Right Arm Weight Weight: 395 lb 13.214 oz Body Mass Index (BMI) 49.4 Physical Exam Const alert, oriented x3, no apparent distress and well nourished Constitutional Narrative: The patient is morbidly obese. General Appearance: cooperative, comfortable, well kempt and well developed Orientation / Consciousness: awake, oriented to person, oriented to place and oriented to time Exam Limitations: no limitations HEENT normocephalic, head/scalp atraumatic and hearing grossly normal bilaterally Head and Scalp: normal to inspection, normocephalic and atraumatic External Ear: external ears normal Eyes PERRL and EOMs intact bilaterally General Eye: normal appearance of both eyes Resp normal respiratory effort, normal air movement, no retractions and no use of accessory muscles Effort and Inspection: able to speak in complete sentences GI GI Narrative: The abdomen is obese. Rectal Exam: deferred Extremity no calf tenderness General Extremity: Negative for clubbing or cyanosis Skin Wound Narrative: The patient now has only 1 wound on the left pretibial area which is recent and new since his initial visit. It is traumatic in nature. He fell and sustained trauma to the area. He placed a Band-Aid topically, which he removed the following day, only to bring considerable amount of epidermis and dermis with the adhesive portion of the Band-Aid. An EpiFix allograft was placed 2 weeks ago. The wound now appears nearly healed. In addition to the wound itself, there is a nearby excoriation which is also due to tape. Dimensions are documented elsewhere. The wound appears smaller in size and now nearly totally healed. There is no sign of infection or cellulitis. Hyperpigmentation and lipodermatosclerosis are noted in the gaiter areas bilaterally, rather severe in nature. No significant swelling or edema are noted in the left lower extremity. Neuro oriented x3, CN's II-XII intact bilaterally, moves all extremities and no focal motor deficits Sensorium / Orientation: awake, alert, oriented to person, oriented to place and oriented to time Psych Appearance: grossly normal and appropriate Attitude: calm Activity / Motor Behavior: appropriate eye contact Speech: normal speech Mood & Affect: euthymic mood Thought Process: normal thought process Thought Content: normal thought content Attention / Concentration: attention grossly intact Debridement Note Debridement Note Wound debrided: Left pretibial wound Laterality: Left Type of Debridement: Selective debridement Anesthesia Used: 5% Lidocaine Gel Depth: Down to and including healthy tissue Percentage of wound debrided: 100 Instrument Used: 5mm curette Tissue Removed: Bioburden and residual EpiFix Severity: Limited To Skin Breakdown Amount of bleeding with debridement: Mild Bleeding Controlled with: Compression and gauze Patient tolerated procedure: Patient tolerated procedure well Debridement Free Text: The wound on the left pretibial surface is now nearly completely healed. Post-Debridement Measurements and Additional Note: Post-Debridement Measurements/Treatment - Nurse 1 - General Ulcer Assessment Start: 03/07/22 09:46 Freq: Status: Active Protocol: [email or web address] Activity Type Activity Date Activity User E-sign Co-sign Detail Recorded Client Recorded Date Recorded By Document 03/07/22 09:46 DL Desktop 03/07/22 09:50 DL Document 03/14/22 09:35 KR [id number] 03/14/22 09:38 KR Document 03/21/22 09:47 KR [id number] 03/21/22 09:52 KR 03/07/22 03/14/22 03/21/22 09:46 09:35 09:47 - Today's Visit Information Type of service Follow-up Visit Follow-up Visit Follow-up Visit (Physician/PRECINCT COMMANDING OFFICER (Physician/PRECINCT COMMANDING OFFICER (Physician/PRECINCT COMMANDING OFFICER ) ) ) Arrival Mode Ambulatory Ambulatory Ambulatory Transfer Assistance None Patient Identification Verified (Name & Yes Yes Yes ) Patient Requires Transmission-Based No Precautions Height and Weight Body Mass Index (BMI) 49.4 49.4 49.4 BMI Classification Obese Obese Obese Vital Signs Temperature (97.8 F-99.1 F) 96.5 F L 97.6 F L 96.7 F L Temperature Source Temporal Temporal Temporal Pulse Rate (60-100) 76 74 64 Pulse Location Monitor Monitor Monitor Respiratory Rate (12-18) 22 H Respiratory rate source Observation Blood Pressure (90/60-120/80) 146/75 H 161/87 H 157/74 H Blood Pressure Mean 98 111 101 Source Monitor Monitor Monitor Position Semi-Fowlers Semi-Fowlers Blood Pressure Location Left Arm Right Arm History Since Last Visit- (Skip if this is Patient's initial visit) Have you changed medications since your No No No last visit? Any new allergies or adverse reactions No No No Had a fall/change in ADL's that may No No No increase risk of falls Signs or symptoms of abuse and/or No No No neglect since last visit Have you been in the hospital since your No No No last visit? Has dressing in place as prescribed Yes Yes Yes Has compression in place as prescribed Yes N/A Yes Has offloadiing in place as prescribed N/A N/A N/A Experienced any changes in pain level or No No No management Left Footwear Regular Shoe Regular Shoe Right Footwear Regular Shoe Regular Shoe Pain Scale: 0-10 Numeric Is Patient Pain Free? Yes Yes Yes WC - Nurse 1 - General Ulcer Measurement Start: 03/07/22 09:46 Freq: Status: Active Protocol: Activity Type Activity Date Activity User E-sign Co-sign Detail Recorded Client Recorded Date Recorded By Document 03/07/22 09:46 DL Desktop 03/07/22 09:50 DL Document 03/14/22 09:35 KR [id number] 03/14/22 09:38 KR Document 03/21/22 09:47 KR [id number] 03/21/22 09:52 KR 03/07/22 03/14/22 03/21/22 09:46 09:35 09:47 Wound Center Nurse 1 #2 Left lower extremity -Current Size (cm) - Length 0.4 0.2 0.5 -Current Size (cm) - Width 0.7 0.4 0.1 -Current Size (cm) - Depth 0.1 0.1 0.1 -Total Square Cm 0.28 0.08 0.05 -Photo Taken No -Exudate Amt Small Small -Exudate Type Serosanguineous Serosanguineous -Wound Margin Distinct, Distinct, Distinct, Outline Outline Outline Attached Attached Attached -Granulation Amt Large (67-100%) Small (1-33%) Medium (34-66%) -Granulation Quality Pale,[place] -Necrosis Amt None Present (0 Small (1-33%) %) -Necrotic Tissue Type Adherent Slough Adherent Slough -Structure Exposed N/A -Texture (Mahnaz-wound Skin Appearance) Scarring Assessed Assessed, Scarring -Moisture (Mahnaz-wound Skin Appearance) No Abnormality No Abnormality, No Abnormality, Assessed Assessed -Color (Mahnaz-wound Skin Appearance) Hemosiderin No Abnormality, No Abnormality, Staining Assessed Assessed -Temperature (Mahnaz-wound Skin No Abnormality No Abnormality No Abnormality Appearance) (Pt Warm) (Pt Warm) (Pt Warm) -Tenderness on Palpation (Mahnaz-wound No No No Skin Appearance) -Ulcer Cleansing Rinsed/ Rinsed/ Rinsed/ Irrigated with Irrigated with Irrigated with Saline Saline Saline -Foul Odor after Cleansing No No No -Anesthetic Used 5% Lidocaine 5% Lidocaine 5% Lidocaine Gel Gel Gel Left Calf (cm) 45.5 Left Ankle (cm) 25.5 WC - Nurse 2 - General Ulcer CM Notes Start: 03/07/22 09:46 Freq: Status: Active Protocol: Activity Type Activity Date Activity User E-sign Co-sign Detail Recorded Client Recorded Date Recorded By Document 03/07/22 12:08 PL [id number] 03/07/22 12:09 PL Document 03/14/22 09:59 PL [id number] 03/14/22 09:59 PL 03/07/22 03/14/22 12:08 09:59 Wound Center Nurse 2 #2 Left lower extremity -Time 09:56 09:50 -Correct Patient Yes -Correct Side, Site, Position Yes -Correct Procedure Yes -Procedure Performed Yes No -Type of Procedure Debridement -Clinical Debridement Subcutaneous -Tissue Removed Subcutaneous -Post Debridement (cm) - Length 0.4 0.2 -Post Debridement (cm) - Width 0.7 0.4 -Post Debridement (cm) - Depth 0.1 0.1 -Total Square (Post) (cm) 0.28 0.08 -Area of Debridement (cm) - Length 0.4 -Area of Debridement (cm) - Width 0.7 -Total Square (Area) (cm) 0.28 -Tunneling No -Undermining/Tunneling No -Circular Undermining No -Wound/Ulcer Outcome Not Healed -Ulcer Cleansing Rinsed/ Irrigated with Saline -Foul Odor after Cleansing No -Bioengineered Tissue Yes -Type of Bioengineered Tissue Epifix 18mm Disc -Expiration Date 12/05/26 -Product Lot Number [id number] -Percent Used 100 -Bleeding Controlled with Pressure -Treatment Response Procedure Tolerated Well -Debridement - Subq, 1st 20sq cm No -Apply Skin Sub - 1st 25 sq cm - Legs 1 -Epifix 18mm Disc 3 Pain Scale: 0-10 Numeric Is Patient Pain Free? Yes Yes - Nurse 3 - General Ulcer D/C NN Start: 03/07/22 09:46 Freq: Status: Active Protocol: Activity Type Activity Date Activity User E-sign Co-sign Detail Recorded Client Recorded Date Recorded By Document 03/07/22 10:11 DL Desktop 03/07/22 10:12 DL Document 03/14/22 10:04 MW [id number] 03/14/22 10:06 MW Document 03/21/22 10:26 AK [id number] 03/21/22 10:27 AK 03/07/22 03/14/22 03/21/22 10:11 10:04 10:26 Wound Care Nurse 3 #2 Left lower extremity -Ulcer Cleansing Not Cleansed Rinsed/ Irrigated with Saline -Foul Odor after Cleansing No No No -Negative Pressure Wound Therapy N/A N/A -Other Dressing Epifix hydrogel -Primary Dressing Covered/Secured with Dry Gauze & Dry Gauze & Dry Gauze Roll Gauze, Roll Gauze, Secured with Secured with Tape Tape Left -Lotion applied to leg before No compression wrap -Stockings Yes susie -Stockings Yes Treatment Response Procedure Procedure Tolerated Well Tolerated Well Pain Scale: 0-10 Numeric Is Patient Pain Free? Yes Yes Yes Teaching: Wound Center Dressing Your Wound -Person Taught Patient -Teaching Method Discussion, Demonstration -Response to teaching Verbalize understanding WC - Visit Discharge Discharge Condition Stable Stable Stable Ambulatory Status Ambulatory Ambulatory Ambulatory Transportation Private Auto Private Auto Private Auto Accompanied by self Medication Reconcilliation completed & No Yes provided to patient/care provider Clinical Summary of Care Provided Yes Yes Assessment/Plan Assessment/Plan (1) Leg ulcer, left: CODE(S): L97.929 - Non-pressure chronic ulcer of unspecified part of left lower leg with unspecified severity QUALIFIERS: Non-pressure ulcer stage: limited to breakdown of skin Qualified Code(s): L97.921 - Non-pressure chronic ulcer of unspecified part of left lower leg limited to breakdown of skin (2) Venous ulcer of left leg: CODE(S): I83.029 - Varicose veins of left lower extremity with ulcer of unspecified site; L97.929 - Non-pressure chronic ulcer of unspecified part of left lower leg with unspecified severity (3) Left leg swelling: CODE(S): M79.89 - Other specified soft tissue disorders (4) Right leg swelling: CODE(S): M79.89 - Other specified soft tissue disorders (5) Hyperpigmentation: CODE(S): L81.9 - Disorder of pigmentation, unspecified (6) Lipodermatosclerosis of both lower extremities: CODE(S): I83.11 - Varicose veins of right lower extremity with inflammation; I83.12 - Varicose veins of left lower extremity with inflammation (7) Morbid obesity with BMI of 45.0-49.9, adult: CODE(S): E66.01 - Morbid (severe) obesity due to excess calories; Z68.42 - Body mass index [BMI] 45.0-49.9, adult (8) Hypertension: CODE(S): I10 - Essential (primary) hypertension (9) Chronic venous insufficiency of lower extremity: CODE(S): I87.2 - Venous insufficiency (chronic) (peripheral) (10) Diabetes mellitus: CODE(S): E11.9 - Type 2 diabetes mellitus without complications (11) Hypothyroidism: CODE(S): E03.9 - Hypothyroidism, unspecified (12) Hypertriglyceridemia: CODE(S): E78.1 - Pure hyperglyceridemia (13) History of gout: CODE(S): Z87.39 - Personal history of other diseases of the musculoskeletal system and connective tissue (14) Fatty liver: CODE(S): K76.0 - Fatty (change of) liver, not elsewhere classified (15) History of vertigo: CODE(S): Z87.898 - Personal history of other specified conditions (16) History of gastrointestinal hemorrhage: CODE(S): Z87.19 - Personal history of other diseases of the digestive system (17) History of hemorrhoids: CODE(S): Z87.19 - Personal history of other diseases of the digestive system PLAN: Plan This is a 52-year-old male who is morbidly obese, and with a history of multiple pre-existing medical problems. He has a longstanding history of swelling and edema in his lower extremities, and has had prior episodes of spontaneous ulcerations in his lower extremities, thought to be secondary to chronic venous insufficiency. His ulcerations had been present for approximately 3 to 4 weeks, located in the left heath-medial calf. A lengthy discussion has been undertaken as to the conservative treatment measures appropriate to the patient's management. The patient sleeps on a flat mattress at night. This has been encouraged. Additionally, the patient has been advised to elevate his lower extremities is much as possible during daytime hours. Leg elevation is to be to heart level, or higher. Prolonged idle sitting has been discouraged. Activity has been encouraged. Weight loss has also been recommended. It is noted that the patient has voluntarily and purposely lost approximately 65 pounds in recent months. The patient has discomfort and pain in his lower extremities, and nonsteroidal anti-inflammatory medications have been advised. The patient has a recent ulceration on the left heath-medial calf which is a result of recent trauma. We placed an EpiFix allograft 2 weeks ago, the first such allograft application. The allograft and its associated dressing remained in place, and the wound appears smaller in size, now nearly totally healed. We are to utilize collagen hydrogel topically, which will be applied by the patient on a daily basis. Compression is to be continued by means of graduated compression stockings of 20 to 30 mmHg compression. 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 Leg elevation has been advised is much as possible, to heart level, or higher. Long-term lifestyle modification has been discussed, implementing conservative treatment measures as discussed above in an effort to prevent recurrence of ulcerations in his lower extremities. The patient is to return in 2 weeks for reevaluation. If he remains healed, it is anticipated that he will be discharged. Total time: 28 minutes
[2022-04-04 09:47] VITALS: BP 164/76; PULSE 74; TEMP 36.1; BMI 49.4
--- NOTE | 2022-04-04 12:43 | HP.PCM_ITS ---
History of Present Illness Date of Service: 04/04/22 Chief Complaint: Left lower extremity ulcerations History of Wound: This is a 52-year-old morbidly obese male with multiple pre- existing medical problems. He presented with ulcerations on the medial aspect of his left calf, which had been present for approximately 3 to 4 weeks. They occurred spontaneously. He has previously suffered from ulcerations in his lower extremities, which occurred as a result of chronic venous insufficiency. Prior ulcerations have healed spontaneously. The patient had been using topical preparations such as chlorhexidine and Betadine. He had been treated by his primary care physician with courses of oral Keflex and tetracycline, which have been completed. He experiences swelling in both lower extremities, which is said to be worse at the end of each day. His swelling has occurred for many years. He sleeps on a flat mattress at night. He is active, and seeks exercise by means of swimming. He denies a history of thrombophlebitis. In recent months, the patient has lost approximately 65 pounds purposefully. 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 Recently, the patient's primary care physician increased his dose of Lasix in an attempt to address issues related to lower extremity swelling. [facility] Medical History Chronic venous hypertension w/ulcer and inflammation involv left side Chronic venous insufficiency of lower extremity Diabetes mellitus Fatty liver History of gastrointestinal hemorrhage History of gout History of hemorrhoids History of vertigo Hyperpigmentation Hypertension Hypertriglyceridemia Hypothyroidism Left leg swelling Leg ulcer, left Lipodermatosclerosis of both lower extremities Morbid obesity with BMI of 45.0-49.9, adult Right leg swelling Venous ulcer of left leg Home Medications allopurinol 300 mg tablet 300 mg PO DAILY 01/10/22 [History Last Taken Unknown] clonidine HCl 0.2 mg tablet 0.2 mg PO BID 01/10/22 [History Last Taken Unknown] diltiazem HCl 360 mg PO/SL DAILY 01/10/22 [History Last Taken Unknown] fluoxetine 40 mg capsule (Prozac) 40 mg PO DAILY 01/10/22 [History Last Taken Unknown] furosemide 40 mg tablet (Lasix) 40 mg PO BID 01/10/22 [History Last Taken Unknown] levothyroxine 25 mcg capsule 25 mcg PO DAILY 01/10/22 [History Last Taken Unknown] losartan 100 mg tablet 100 mg PO DAILY 01/10/22 [History Last Taken Unknown] metoprolol succinate 100 mg tablet,extended release 24 hr 100 mg PO 1XD 01/10/22 [History Last Taken Unknown] Allergy/AdvReac Type Severity Reaction Status Date / Time ibuprofen Allergy Other Verified 01/10/22 10:50 aripiprazole [From Abilify] AdvReac Other Verified 01/10/22 10:50 Vital Signs Vital Signs Vital Signs: 04/04/22 09:47 Temperature 97.0 F L Temperature Source Temporal Pulse Rate 74 Blood Pressure 164/76 H Blood Pressure Mean 105 Blood Pressure Source Monitor Blood Pressure Position Semi-Fowlers Blood Pressure Location Right Arm Weight Weight: 395 lb 13.214 oz Body Mass Index (BMI) 49.4 Physical Exam Const alert, oriented x3, no apparent distress and well nourished Constitutional Narrative: The patient is morbidly obese. General Appearance: cooperative, comfortable, well kempt and well developed Orientation / Consciousness: awake, oriented to person, oriented to place and oriented to time Exam Limitations: no limitations HEENT normocephalic, head/scalp atraumatic and hearing grossly normal bilaterally Head and Scalp: normal to inspection, normocephalic and atraumatic External Ear: external ears normal Eyes PERRL and EOMs intact bilaterally General Eye: normal appearance of both eyes Resp normal respiratory effort, normal air movement, no retractions and no use of accessory muscles Effort and Inspection: able to speak in complete sentences GI GI Narrative: The abdomen is obese. Rectal Exam: deferred Extremity no calf tenderness General Extremity: Negative for clubbing or cyanosis Skin Wound Narrative: Patient's original ulcerations are now completely healed and epithelialized. However, since patient's last visit, he has developed a blister in the left lateral supramalleolar area which has spontaneously unroofed, resulting in a superficial ulceration. Dimensions are documented elsewhere. There is no sign of infection or cellulitis. Hyperpigmentation and lipodermatosclerosis are noted in the gaiter areas bilaterally, rather severe in nature. No significant swelling or edema are noted in the left lower extremity. Neuro oriented x3, CN's II-XII intact bilaterally, moves all extremities and no focal motor deficits Sensorium / Orientation: awake, alert, oriented to person, oriented to place and oriented to time Psych Appearance: grossly normal and appropriate Attitude: calm Activity / Motor Behavior: appropriate eye contact Speech: normal speech Mood & Affect: euthymic mood Thought Process: normal thought process Thought Content: normal thought content Attention / Concentration: attention grossly intact Debridement Note Debridement Note No debridement was completed: No debridement was completed today Post-Debridement Measurements and Additional Note: Post-Debridement Measurements/Treatment - Nurse 1 - General Ulcer Assessment Start: 03/07/22 09:46 Freq: Status: Active Protocol: RACHEL Activity Type Activity Date Activity User E-sign Co-sign Detail Recorded Client Recorded Date Recorded By Document 03/07/22 09:46 DL Desktop 03/07/22 09:50 DL Document 03/14/22 09:35 KR [id number] 03/14/22 09:38 KR Document 03/21/22 09:47 KR [id number] 03/21/22 09:52 KR Document 04/04/22 09:47 KR [id number] 04/04/22 09:50 KR 03/07/22 03/14/22 03/21/22 09:46 09:35 09:47 - Today's Visit Information Type of service Follow-up Visit Follow-up Visit Follow-up Visit (Physician/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 APPRENTICE (Physician/TOOL MAKER APPRENTICE (Physician/TOOL MAKER APPRENTICE ) ) ) Arrival Mode Ambulatory Ambulatory Ambulatory Transfer Assistance None Patient Identification Verified (Name & Yes Yes Yes ) Patient Requires Transmission-Based No Precautions Height and Weight Body Mass Index (BMI) 49.4 49.4 49.4 BMI Classification Obese Obese Obese Vital Signs Temperature (97.8 F-99.1 F) 96.5 F L 97.6 F L 96.7 F L Temperature Source Temporal Temporal Temporal Pulse Rate (60-100) 76 74 64 Pulse Location Monitor Monitor Monitor Respiratory Rate (12-18) 22 H Respiratory rate source Observation Blood Pressure (90/60-120/80) 146/75 H 161/87 H 157/74 H Blood Pressure Mean 98 111 101 Source Monitor Monitor Monitor Position Semi-Fowlers Semi-Fowlers Blood Pressure Location Left Arm Right Arm History Since Last Visit- (Skip if this is Patient's initial visit) Have you changed medications since your No No No last visit? Any new allergies or adverse reactions No No No Had a fall/change in ADL's that may No No No increase risk of falls Signs or symptoms of abuse and/or No No No neglect since last visit Have you been in the hospital since your No No No last visit? Has dressing in place as prescribed Yes Yes Yes Has compression in place as prescribed Yes N/A Yes Has offloadiing in place as prescribed N/A N/A N/A Experienced any changes in pain level or No No No management Left Footwear Regular Shoe Regular Shoe Right Footwear Regular Shoe Regular Shoe Pain Scale: 0-10 Numeric Is Patient Pain Free? Yes Yes Yes 04/04/22 09:47 WC - Today's Visit Information Type of service Follow-up Visit (Physician/TOOL MAKER APPRENTICE ) Arrival Mode Ambulatory Transfer Assistance Patient Identification Verified (Name & Yes ) Patient Requires Transmission-Based Precautions Height and Weight Body Mass Index (BMI) 49.4 BMI Classification Obese Vital Signs Temperature (97.8 F-99.1 F) 97.0 F L Temperature Source Temporal Pulse Rate (60-100) 74 Pulse Location Monitor Respiratory Rate (12-18) Respiratory rate source Blood Pressure (90/60-120/80) 164/76 H Blood Pressure Mean 105 Source Monitor Position Semi-Fowlers Blood Pressure Location Right Arm History Since Last Visit- (Skip if this is Patient's initial visit) Have you changed medications since your No last visit? Any new allergies or adverse reactions No Had a fall/change in ADL's that may No increase risk of falls Signs or symptoms of abuse and/or No neglect since last visit Have you been in the hospital since your No last visit? Has dressing in place as prescribed Yes Has compression in place as prescribed N/A Has offloadiing in place as prescribed N/A Experienced any changes in pain level or No management Left Footwear Regular Shoe Right Footwear Regular Shoe Pain Scale: 0-10 Numeric Is Patient Pain Free? Yes - Nurse 1 - General Ulcer Measurement Start: 03/07/22 09:46 Freq: Status: Active Protocol: Activity Type Activity Date Activity User E-sign Co-sign Detail Recorded Client Recorded Date Recorded By Document 03/07/22 09:46 DL Desktop 03/07/22 09:50 DL Document 03/14/22 09:35 KR [id number] 03/14/22 09:38 KR Document 03/21/22 09:47 KR [id number] 03/21/22 09:52 KR Document 04/04/22 09:47 KR [id number] 04/04/22 09:50 KR 03/07/22 03/14/22 03/21/22 09:46 09:35 09:47 Wound Center Nurse 1 #2 Left lower extremity -Current Size (cm) - Length 0.4 0.2 0.5 -Current Size (cm) - Width 0.7 0.4 0.1 -Current Size (cm) - Depth 0.1 0.1 0.1 -Total Square Cm 0.28 0.08 0.05 -Photo Taken No -Exudate Amt Small Small -Exudate Type Serosanguineous Serosanguineous -Wound Margin Distinct, Distinct, Distinct, Outline Outline Outline Attached Attached Attached -Granulation Amt Large (67-100%) Small (1-33%) Medium (34-66%) -Granulation Quality Pale,[place] -Necrosis Amt None Present (0 Small (1-33%) %) -Necrotic Tissue Type Adherent Slough Adherent Slough -Structure Exposed N/A -Texture (Manhaz-wound Skin Appearance) Scarring Assessed Assessed, Scarring -Moisture (Mahnaz-wound Skin Appearance) No Abnormality No Abnormality, No Abnormality, Assessed Assessed -Color (Mahnaz-wound Skin Appearance) Hemosiderin No Abnormality, No Abnormality, Staining Assessed Assessed -Temperature (Mahnaz-wound Skin No Abnormality No Abnormality No Abnormality Appearance) (Pt Warm) (Pt Warm) (Pt Warm) -Tenderness on Palpation (Mahnaz-wound No No No Skin Appearance) -Ulcer Cleansing Rinsed/ Rinsed/ Rinsed/ Irrigated with Irrigated with Irrigated with Saline Saline Saline -Foul Odor after Cleansing No No No -Anesthetic Used 5% Lidocaine 5% Lidocaine 5% Lidocaine Gel Gel Gel Left Calf (cm) 45.5 Left Ankle (cm) 25.5 04/04/22 09:47 Wound Center Nurse 1 #2 Left lower extremity -Current Size (cm) - Length 0.4 -Current Size (cm) - Width 0.5 -Current Size (cm) - Depth 0.1 -Total Square Cm 0.20 -Photo Taken -Exudate Amt Small -Exudate Type Serosanguineous -Wound Margin Distinct, Outline Attached -Granulation Amt Small (1-33%) -Granulation Quality [place] -Necrosis Amt None Present (0 %) -Necrotic Tissue Type -Structure Exposed -Texture (Mahnaz-wound Skin Appearance) Assessed, Scarring -Moisture (Mahnaz-wound Skin Appearance) No Abnormality, Assessed -Color (Mahnaz-wound Skin Appearance) No Abnormality, Assessed -Temperature (Mahnaz-wound Skin No Abnormality Appearance) (Pt Warm) -Tenderness on Palpation (Mahnaz-wound No Skin Appearance) -Ulcer Cleansing Rinsed/ Irrigated with Saline -Foul Odor after Cleansing No -Anesthetic Used 5% Lidocaine Gel Left Calf (cm) Left Ankle (cm) WC - Nurse 2 - General Ulcer CM Notes Start: 03/07/22 09:46 Freq: Status: Active Protocol: Activity Type Activity Date Activity User E-sign Co-sign Detail Recorded Client Recorded Date Recorded By Document 03/07/22 12:08 PL [id number] 03/07/22 12:09 PL Document 03/14/22 09:59 PL [id number] 03/14/22 09:59 PL Document 03/21/22 11:53 PL [id number] 03/21/22 11:54 PL Edit Result 03/21/22 11:53 PL (1) [id number] 03/22/22 07:35 PL (1) #2 Left lower extremity - Time => 10:17 - Correct Patient => Yes - Correct Side, Site, Position => Yes - Correct Procedure => Yes - Procedure Performed No => Yes - Type of Procedure => Debridement - Clinical Debridement => Epidermis / Dermis - Tissue Removed => Epidermis,Dermis - Post Debridement (cm) - Length => 0.1 - Post Debridement (cm) - Width => 0.1 - Post Debridement (cm) - Depth => 0.1 - Total Square (Post) (cm) => 0.01 - Area of Debridement (cm) - Length => 0.1 - Area of Debridement (cm) - Width => 0.1 - Total Square (Area) (cm) => 0.01 - Tunneling => No - Undermining/Tunneling => No - Circular Undermining => No - Bioengineered Tissue => No - Debridement - Open, 1st 20sq cm => Yes 03/07/22 03/14/22 03/21/22 12:08 09:59 11:53 Wound Center Nurse 2 #2 Left lower extremity -Time 09:56 09:50 10:17 -Correct Patient Yes Yes -Correct Side, Site, Position Yes Yes -Correct Procedure Yes Yes -Procedure Performed Yes No Yes -Type of Procedure Debridement Debridement -Clinical Debridement Subcutaneous Epidermis / Dermis -Tissue Removed Subcutaneous Epidermis, Dermis -Post Debridement (cm) - Length 0.4 0.2 0.1 -Post Debridement (cm) - Width 0.7 0.4 0.1 -Post Debridement (cm) - Depth 0.1 0.1 0.1 -Total Square (Post) (cm) 0.28 0.08 0.01 -Area of Debridement (cm) - Length 0.4 0.1 -Area of Debridement (cm) - Width 0.7 0.1 -Total Square (Area) (cm) 0.28 0.01 -Tunneling No No -Undermining/Tunneling No No -Circular Undermining No No -Wound/Ulcer Outcome Not Healed Healed- Epithelialized -Ulcer Cleansing Rinsed/ Irrigated with Saline -Foul Odor after Cleansing No -Bioengineered Tissue Yes No -Type of Bioengineered Tissue Epifix 18mm Disc -Expiration Date 12/05/26 -Product Lot Number [id number] -Percent Used 100 -Bleeding Controlled with Pressure -Treatment Response Procedure Tolerated Well -Debridement - Open, 1st 20sq cm Yes -Debridement - Subq, 1st 20sq cm No -Apply Skin Sub - 1st 25 sq cm - Legs 1 -Epifix 18mm Disc 3 Pain Scale: 0-10 Numeric Is Patient Pain Free? Yes Yes Yes WC - Nurse 3 - General Ulcer D/C NN Start: 03/07/22 09:46 Freq: Status: Active Protocol: Activity Type Activity Date Activity User E-sign Co-sign Detail Recorded Client Recorded Date Recorded By Document 03/07/22 10:11 DL Desktop 03/07/22 10:12 DL Document 03/14/22 10:04 MW [id number] 03/14/22 10:06 MW Document 03/21/22 10:26 AK [id number] 03/21/22 10:27 AK Document 04/04/22 10:32 KR [id number] 04/04/22 10:32 KR 03/07/22 03/14/22 03/21/22 10:11 10:04 10:26 Wound Care Nurse 3 #2 Left lower extremity -Ulcer Cleansing Not Cleansed Rinsed/ Irrigated with Saline -Foul Odor after Cleansing No No No -Negative Pressure Wound Therapy N/A N/A -Primary Dressing Applied -Other Dressing Epifix hydrogel -Primary Dressing Covered/Secured with Dry Gauze & Dry Gauze & Dry Gauze Roll Gauze, Roll Gauze, Secured with Secured with Tape Tape Left -Lotion applied to leg before No compression wrap -Stockings Yes susie -Size of Tubigrip Used -Stockings Yes Treatment Response Procedure Procedure Tolerated Well Tolerated Well Pain Scale: 0-10 Numeric Is Patient Pain Free? Yes Yes Yes Teaching: Wound Center Dressing Your Wound -Person Taught Patient -Teaching Method Discussion, Demonstration -Response to teaching Verbalize understanding WC - Visit Discharge Discharge Condition Stable Stable Stable Ambulatory Status Ambulatory Ambulatory Ambulatory Transportation Private Auto Private Auto Private Auto Accompanied by self Medication Reconcilliation completed & No Yes provided to patient/care provider Clinical Summary of Care Provided Yes Yes 04/04/22 10:32 Wound Care Nurse 3 #2 Left lower extremity -Ulcer Cleansing Rinsed/ Irrigated with Saline -Foul Odor after Cleansing -Negative Pressure Wound Therapy -Primary Dressing Applied C Hydrogel ($) -Other Dressing -Primary Dressing Covered/Secured with Dry Gauze,Dry Gauze & Roll Gauze,Secured with Tape Left -Lotion applied to leg before compression wrap -Stockings susie -Size of Tubigrip Used Size E -Stockings Treatment Response Pain Scale: 0-10 Numeric Is Patient Pain Free? Yes Teaching: Wound Center Dressing Your Wound -Person Taught -Teaching Method -Response to teaching WC - Visit Discharge Discharge Condition Stable Ambulatory Status Ambulatory Transportation Private Auto Accompanied by Medication Reconcilliation completed & provided to patient/care provider Clinical Summary of Care Provided Assessment/Plan Assessment/Plan (1) Leg ulcer, left: CODE(S): L97.929 - Non-pressure chronic ulcer of unspecified part of left lower leg with unspecified severity QUALIFIERS: Non-pressure ulcer stage: limited to breakdown of skin Qualified Code(s): L97.921 - Non-pressure chronic ulcer of unspecified part of left lower leg limited to breakdown of skin (2) Chronic venous hypertension w/ulcer and inflammation involv left side: CODE(S): I87.332 - Chronic venous hypertension (idiopathic) with ulcer and inflammation of left lower extremity; L97.929 - Non-pressure chronic ulcer of unspecified part of left lower leg with unspecified severity (3) Venous ulcer of left leg: CODE(S): I83.029 - Varicose veins of left lower extremity with ulcer of unspecified site; L97.929 - Non-pressure chronic ulcer of unspecified part of left lower leg with unspecified severity (4) Chronic venous insufficiency of lower extremity: CODE(S): I87.2 - Venous insufficiency (chronic) (peripheral) (5) Left leg swelling: CODE(S): M79.89 - Other specified soft tissue disorders (6) Right leg swelling: CODE(S): M79.89 - Other specified soft tissue disorders (7) Hyperpigmentation: CODE(S): L81.9 - Disorder of pigmentation, unspecified (8) Lipodermatosclerosis of both lower extremities: CODE(S): I83.11 - Varicose veins of right lower extremity with inflammation; I83.12 - Varicose veins of left lower extremity with inflammation (9) Morbid obesity with BMI of 45.0-49.9, adult: CODE(S): E66.01 - Morbid (severe) obesity due to excess calories; Z68.42 - Body mass index [BMI] 45.0-49.9, adult (10) Hypertension: CODE(S): I10 - Essential (primary) hypertension (11) Diabetes mellitus: CODE(S): E11.9 - Type 2 diabetes mellitus without complications (12) Hypothyroidism: CODE(S): E03.9 - Hypothyroidism, unspecified (13) Hypertriglyceridemia: CODE(S): E78.1 - Pure hyperglyceridemia (14) History of gout: CODE(S): Z87.39 - Personal history of other diseases of the musculosk eletal system and connective tissue (15) Fatty liver: CODE(S): K76.0 - Fatty (change of) liver, not elsewhere classified (16) History of vertigo: CODE(S): Z87.898 - Personal history of other specified conditions (17) History of gastrointestinal hemorrhage: CODE(S): Z87.19 - Personal history of other diseases of the digestive system (18) History of hemorrhoids: CODE(S): Z87.19 - Personal history of other diseases of the digestive system PLAN: Plan This is a 52-year-old male who is morbidly obese, and with a history of multiple pre-existing medical problems. He has a longstanding history of swelling and edema in his lower extremities, and has had prior episodes of spontaneous ul cerations in his lower extremities, thought to be secondary to chronic venous insufficiency. His ulcerations had been present for approximately 3 to 4 weeks, located in the left heath-medial calf. A lengthy discussion has been undertaken as to the conservative treatment measures appropriate to the patient's management. The patient sleeps on a flat mattress at night. This has been encouraged. Additionally, the patient has been advised to elevate his lower extremities is much as possible during daytime hours. Leg elevation is to be to heart level, or higher. Prolonged idle sitting has been discouraged. Activity has been encouraged. Weight loss has also been recommended. It is noted that the patient has voluntarily and purposely lost approximately 65 pounds in recent months. The patient has discomfort and pain in his lower extremities, and nonsteroidal anti-inflammatory medications have been advised. The ulcerations for which the patient initially presented have been completely healed, but the patient has now developed a blister on the left lateral supramalleolar area, which is spontaneously unroofed, leaving a small superficial ulceration at the site. We are to utilize collagen hydrogel topically, which will be applied by the patient on a daily basis. Compression is to be continued by means of graduated compression stockings of 20 to 30 mmHg compression. 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 Leg elevation has been advised is much as possible, to heart level, or higher. Long-term lifestyle modification has been discussed, implementing conservative treatment measures as discussed above in an effort to prevent recurrence of ulcerations in his lower extremities. The patient is to return in 2 weeks for reevaluation. We are to obtain a venous duplex examination, as the patient's physical findings and history suggest the presence of significant chronic venous disease, and the patient may benefit from consideration of a superficial venous ablation procedure. This consideration will be elaborated once the results of his venous duplex ultrasound examination has been completed. Total time: 29 minutes
== END 2022-04-05 23:59 | disposition home or self-care (01) ==
LOC: WC 09:45
PROVIDERS: PCP Internal Medicine; Visit Provider Surgery
DX: I83.222 Varicose veins of left lower extremity with both ulcer of calf and inflammation (principal); L97.222 Non-pressure chronic ulcer of left calf with fat layer exposed; E11.59 Type 2 diabetes mellitus with other circulatory complications; E66.01 Morbid (severe) obesity due to excess calories; Z68.42 Body mass index [BMI] 45.0-49.9, adult; K76.0 Fatty (change of) liver, not elsewhere classified; E03.9 Hypothyroidism, unspecified; E78.1 Pure hyperglyceridemia; M10.9 Gout, unspecified; Z79.899 Other long term (current) drug therapy; I87.2 Venous insufficiency (chronic) (peripheral); Z79.890 Hormone replacement therapy
CPT/HCPCS: 11042; 15271; 97597; 99213; Q4186; G0463

== ENCOUNTER 2022-04-18 09:38 | Outpatient (RCR) | payer OTHER, SELFPAY ==
[2022-04-06 00:12] VITALS: BP 164/76; PULSE 74; RESP 22; TEMP 36.1; BMI 49.4
[2022-04-18 09:43] VITALS: BP 149/77; PULSE 65; RESP 19; TEMP 36.2; BMI 49.4
--- NOTE | 2022-04-18 12:28 | HP.PCM_ITS ---
History of Present Illness Date of Service: 04/18/22 Chief Complaint: Left lower extremity ulcerations History of Wound: This is a 52-year-old morbidly obese male with multiple pre- existing medical problems. He presented with ulcerations on the medial aspect of his left calf, which had been present for approximately 3 to 4 weeks. They occurred spontaneously. He has previously suffered from ulcerations in his lower extremities, which occurred as a result of chronic venous insufficiency. Prior ulcerations have healed spontaneously. The patient had been using topical preparations such as chlorhexidine and Betadine. He had been treated by his primary care physician with courses of oral Keflex and tetracycline, which have been completed. He experiences swelling in both lower extremities, which is said to be worse at the end of each day. His swelling has occurred for many years. He sleeps on a flat mattress at night. He is active, and seeks exercise by means of swimming. He denies a history of thrombophlebitis. In recent months, the patient has lost approximately 65 pounds purposefully. 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 Recently, the patient's primary care physician increased his dose of Lasix in an attempt to address issues related to lower extremity swelling. [facility] Medical History Chronic venous hypertension w/ulcer and inflammation involv left side Chronic venous insufficiency of lower extremity Diabetes mellitus Fatty liver History of gastrointestinal hemorrhage History of gout History of hemorrhoids History of vertigo Hyperpigmentation Hypertension Hypertriglyceridemia Hypothyroidism Left leg swelling Leg ulcer, left Lipodermatosclerosis of both lower extremities Morbid obesity with BMI of 45.0-49.9, adult Right leg swelling Venous ulcer of left leg Home Medications allopurinol 300 mg tablet 300 mg PO DAILY 01/10/22 [History Last Taken Unknown] clonidine HCl 0.2 mg tablet 0.2 mg PO BID 01/10/22 [History Last Taken Unknown] diltiazem HCl 360 mg PO/SL DAILY 01/10/22 [History Last Taken Unknown] fluoxetine 40 mg capsule (Prozac) 40 mg PO DAILY 01/10/22 [History Last Taken Unknown] furosemide 40 mg tablet (Lasix) 40 mg PO BID 01/10/22 [History Last Taken Unknown] levothyroxine 25 mcg capsule 25 mcg PO DAILY 01/10/22 [History Last Taken Unknown] losartan 100 mg tablet 100 mg PO DAILY 01/10/22 [History Last Taken Unknown] metoprolol succinate 100 mg tablet,extended release 24 hr 100 mg PO 1XD 01/10/22 [History Last Taken Unknown] Allergy/AdvReac Type Severity Reaction Status Date / Time ibuprofen Allergy Other Verified 01/10/22 10:50 aripiprazole [From Abilify] AdvReac Other Verified 01/10/22 10:50 Vital Signs Vital Signs Vital Signs: 04/18/22 09:43 Temperature 97.2 F L Temperature Source Temporal Pulse Rate 65 Respiratory Rate 19 H Blood Pressure 149/77 H Blood Pressure Mean 101 Blood Pressure Source Monitor Blood Pressure Position Sitting Blood Pressure Location Left Arm Weight Weight: 395 lb 13.214 oz Body Mass Index (BMI) 49.4 Physical Exam Const alert, oriented x3, no apparent distress and well nourished Constitutional Narrative: The patient is morbidly obese. General Appearance: cooperative, comfortable, well kempt and well developed Orientation / Consciousness: awake, oriented to person, oriented to place and oriented to time Exam Limitations: no limitations HEENT normocephalic, head/scalp atraumatic and hearing grossly normal bilaterally Head and Scalp: normal to inspection, normocephalic and atraumatic External Ear: external ears normal Eyes PERRL and EOMs intact bilaterally General Eye: normal appearance of both eyes Resp normal respiratory effort, normal air movement, no retractions and no use of accessory muscles Effort and Inspection: able to speak in complete sentences GI GI Narrative: The abdomen is obese. Rectal Exam: deferred Extremity no calf tenderness General Extremity: Negative for clubbing or cyanosis Skin Wound Narrative: Patient's original ulcerations are now completely healed and epithelialized. However, since patient's last visit, he has developed a blister in the left lateral supramalleolar area which has spontaneously unroofed, resulting in a superficial ulceration. Dimensions are documented elsewhere. There is no sign of infection or cellulitis. Hyperpigmentation and lipodermatosclerosis are noted in the gaiter areas bilaterally, rather severe in nature. No significant swelling or edema are noted in the left lower extremity. Neuro oriented x3, CN's II-XII intact bilaterally, moves all extremities and no focal motor deficits Sensorium / Orientation: awake, alert, oriented to person, oriented to place and oriented to time Psych Appearance: grossly normal and appropriate Attitude: calm Activity / Motor Behavior: appropriate eye contact Speech: normal speech Mood & Affect: euthymic mood Thought Process: normal thought process Thought Content: normal thought content Attention / Concentration: attention grossly intact Debridement Note Debridement Note No debridement was completed: No debridement was completed today Post-Debridement Measurements and Additional Note: Post-Debridement Measurements/Treatment WC - Nurse 1 - General Ulcer Assessment Start: 04/18/22 09:43 Freq: Status: Active Protocol: RACHEL Activity Type Activity Date Activity User E-sign Co-sign Detail Recorded Client Recorded Date Recorded By Document 04/18/22 09:43 ML [id number] 04/18/22 09:53 ML 04/18/22 09:43 WC - Today's Visit Information 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 of service 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 ) Arrival Mode Ambulatory Transfer Assistance None Patient Identification Verified (Name & Yes ) Patient Requires Transmission-Based No Precautions Safety Precautions NA Height and Weight Body Mass Index (BMI) 49.4 BMI Classification Obese Vital Signs Temperature (97.8 F-99.1 F) 97.2 F L Temperature Source Temporal Pulse Rate (60-100) 65 Pulse Location Monitor Respiratory Rate (12-18) 19 H Respiratory rate source Observation Blood Pressure (90/60-120/80) 149/77 H Blood Pressure Mean 101 Source Monitor Position Sitting Blood Pressure Location Left Arm History Since Last Visit- (Skip if this is Patient's initial visit) Have you changed medications since your No last visit? Any new allergies or adverse reactions No Had a fall/change in ADL's that may No increase risk of falls Signs or symptoms of abuse and/or No neglect since last visit Have you been in the hospital since your No last visit? Has dressing in place as prescribed Yes Has compression in place as prescribed Yes Has offloadiing in place as prescribed N/A Experienced any changes in pain level or No management Left Footwear Regular Shoe Right Footwear Regular Shoe Pain Scale: 0-10 Numeric Is Patient Pain Free? Yes - Nurse 1 - General Ulcer Measurement Start: 04/18/22 09:43 Freq: Status: Active Protocol: Activity Type Activity Date Activity User E-sign Co-sign Detail Recorded Client Recorded Date Recorded By Document 04/18/22 09:43 ML [id number] 04/18/22 09:53 ML 04/18/22 09:43 Wound Center Nurse 1 #2 Left lower extremity -Current Size (cm) - Length 2.3 -Current Size (cm) - Width 3.2 -Current Size (cm) - Depth 0.1 -Total Square Cm 7.36 -Exudate Amt Small -Exudate Type Serosanguineous -Wound Margin Distinct, Outline Attached -Granulation Amt Large (67-100%) -Granulation Quality [place] -Slough/Fibrin Yes -Necrosis Amt None Present (0 %) -Necrotic Tissue Type Adherent Slough -Texture (Mahnaz-wound Skin Appearance) Assessed -Moisture (Mahnaz-wound Skin Appearance) Assessed -Color (Mahnaz-wound Skin Appearance) Assessed -Tenderness on Palpation (Mahnaz-wound No Skin Appearance) -Ulcer Cleansing Soap and Water -Foul Odor after Cleansing No -Anesthetic Used 5% Lidocaine Gel WC - Nurse 2 - General Ulcer CM Notes Start: 04/18/22 09:43 Freq: Status: Active Protocol: Activity Type Activity Date Activity User E-sign Co-sign Detail Recorded Client Recorded Date Recorded By Document 04/18/22 11:46 PL [id number] 04/18/22 11:47 PL 04/18/22 11:46 Wound Center Nurse 2 -Time 09:58 -Correct Patient Yes -Correct Side, Site, Position Yes -Correct Procedure Yes -Procedure Performed Yes -Type of Procedure Debridement -Clinical Debridement Subcutaneous -Tissue Removed Subcutaneous -Post Debridement (cm) - Length 2.3 -Post Debridement (cm) - Width 3.2 -Post Debridement (cm) - Depth 0.1 -Total Square (Post) (cm) 7.36 -Area of Debridement (cm) - Length 2.3 -Area of Debridement (cm) - Width 3.2 -Total Square (Area) (cm) 7.36 -Tunneling No -Undermining/Tunneling No -Circular Undermining No -Wound/Ulcer Outcome Not Healed -Ulcer Cleansing Rinsed/ Irrigated with Saline -Foul Odor after Cleansing No -Bioengineered Tissue No -Bleeding Controlled with Pressure -Treatment Response Procedure Tolerated Well -Debridement - Subq, 1st 20sq cm No Pain Scale: 0-10 Numeric Is Patient Pain Free? Yes WC - Nurse 3 - General Ulcer D/C NN Start: 04/18/22 09:43 Freq: Status: Active Protocol: Activity Type Activity Date Activity User E-sign Co-sign Detail Recorded Client Recorded Date Recorded By Document 04/18/22 10:07 [id number] 04/18/22 10:08 ML 04/18/22 10:07 Wound Care Nurse 3 #2 Left lower extremity -Ulcer Cleansing Soap and Water -Foul Odor after Cleansing No -Primary Dressing Covered/Secured with Dry Gauze & Roll Gauze, Secured with Tape Pain Scale: 0-10 Numeric Is Patient Pain Free? Yes Assessment/Plan Assessment/Plan (1) Leg ulcer, left: CODE(S): L97.929 - Non-pressure chronic ulcer of unspecified part of left lower leg with unspecified severity QUALIFIERS: Non-pressure ulcer stage: limited to breakdown of skin Qualified Code(s): L97.921 - Non-pressure chronic ulcer of unspecified part of left lower leg limited to breakdown of skin (2) Chronic venous hypertension w/ulcer and inflammation involv left side: CODE(S): I87.332 - Chronic venous hypertension (idiopathic) with ulcer and inflammation of left lower extremity; L97.929 - Non-pressure chronic ulcer of unspecified part of left lower leg with unspecified severity (3) Venous ulcer of left leg: CODE(S): I83.029 - Varicose veins of left lower extremity with ulcer of unspecified site; L97.929 - Non-pressure chronic ulcer of unspecified part of left lower leg with unspecified severity (4) Chronic venous insufficiency of lower extremity: CODE(S): I87.2 - Venous insufficiency (chronic) (peripheral) (5) Left leg swelling: CODE(S): M79.89 - Other specified soft tissue disorders (6) Right leg swelling: CODE(S): M79.89 - Other specified soft tissue disorders (7) Hyperpigmentation: CODE(S): L81.9 - Disorder of pigmentation, unspecified (8) Lipodermatosclerosis of both lower extremities: CODE(S): I83.11 - Varicose veins of right lower extremity with inflammation; I83.12 - Varicose veins of left lower extremity with inflammation (9) Morbid obesity with BMI of 45.0-49.9, adult: CODE(S): E66.01 - Morbid (severe) obesity due to excess calories; Z68.42 - Body mass index [BMI] 45.0-49.9, adult (10) Hypertension: CODE(S): I10 - Essential (primary) hypertension (11) Diabetes mellitus: CODE(S): E11.9 - Type 2 diabetes mellitus without complications (12) Hypothyroidism: CODE(S): E03.9 - Hypothyroidism, unspecified (13) Hypertriglyceridemia: CODE(S): E78.1 - Pure hyperglyceridemia (14) History of gout: CODE(S): Z87.39 - Personal history of other diseases of the musculoskeletal system and connective tissue (15) Fatty liver: CODE(S): K76.0 - Fatty (change of) liver, not elsewhere classified (16) History of vertigo: CODE(S): Z87.898 - Personal history of other specified conditions (17) History of gastrointestinal hemorrhage: CODE(S): Z87.19 - Personal history of other diseases of the digestive system (18) History of hemorrhoids: CODE(S): Z87.19 - Personal history of other diseases of the digestive system PLAN: Plan This is a 52-year-old male who is morbidly obese, and with a history of multiple pre-existing medical problems. He has a longstanding history of swelling and edema in his lower extremities, and has had prior episodes of spontaneous ulcerations in his lower extremities, thought to be secondary to chronic venous insufficiency. His ulcerations had been present for approximately 3 to 4 weeks, located in the left heath-medial calf. A lengthy discussion has been undertaken as to the conservative treatment measures appropriate to the patient's management. The patient sleeps on a flat mattress at night. This has been encouraged. Additionally, the patient has been advised to elevate his lower extremities is much as possible during daytime hours. Leg elevation is to be to heart level, or higher. Prolonged idle sitting has been discouraged. Activity has been encouraged. Weight loss has also been recommended. It is noted that the patient has voluntarily and purposely lost approximately 83 pounds in recent months. The patient has discomfort and pain in his lower extremities, and nonsteroidal anti-inflammatory medications have been advised. The ulcerations for which the patient initially presented have been completely healed, but the patient has now developed a blister on the left lateral supramalleolar area, which is spontaneously unroofed, leaving a small superficial ulceration at the site. We are to continue collagen hydrogel topically, which will be applied by the patient on a daily basis. This will be covered with Adaptic. Compression is to be continued by means of graduated compression stockings of 20 to 30 mmHg compression. 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 Leg elevation has been advised is much as possible, to heart level, or higher. Long-term lifestyle modification has been discussed, implementing conservative treatment measures as discussed above in an effort to prevent recurrence of ulcerations in his lower extremities. The patient is to return in 3 weeks for reevaluation. We are to obtain a venous duplex examination, as the patient's physical findings and history suggest the presence of significant chronic venous disease, and the patient may benefit from consideration of a superficial venous ablation procedure. This consideration will be elaborated once the results of his venous duplex ultrasound examination has been completed. Total time: 28 minutes
== END 2022-05-06 23:59 | disposition home or self-care (01) ==
LOC: WC 09:38
PROVIDERS: PCP Internal Medicine; Visit Provider Surgery
DX: L97.321 Non-pressure chronic ulcer of left ankle limited to breakdown of skin (principal); E66.01 Morbid (severe) obesity due to excess calories; Z68.42 Body mass index [BMI] 45.0-49.9, adult; S90.5 Other superficial injuries of ankle; X58.XXXS Exposure to other specified factors, sequela; I83.93 Asymptomatic varicose veins of bilateral lower extremities; I87.2 Venous insufficiency (chronic) (peripheral); E78.1 Pure hyperglyceridemia; K76.0 Fatty (change of) liver, not elsewhere classified; E03.9 Hypothyroidism, unspecified; M10.9 Gout, unspecified; Z79.890 Hormone replacement therapy; Z79.899 Other long term (current) drug therapy
CPT/HCPCS: 99213; G0463

== ENCOUNTER → 2024-09-17 | Outpatient (CLI) | payer OTHER, SELFPAY ==
--- NOTE | 2024-09-17 14:37 | NEURO ---
NCS and/or EMG Patient Report Ordering Doctor: Terri Acevedo DATE OF SERVICE: 09/17/24 Aly presents with complaints of numbness and weakness in the right hand. Reports ongoing neck pain radiating into the right upper limb. Electrodiagnostic findings: Right median motor nerve demonstrates prolonged latency with reduced amplitude and reduced conduction velocity. Right ulnar motor response within normal limits. Absent right median F?wave. Prolonged right median sensory latency at the wrist. Needle EMG testing was performed in the right upper limb. All muscles tested showed no evidence of denervation with normal motor unit action potentials. Electrodiagnostic impression: This an abnormal study in the right upper limb 1. Electrodiagnostic findings suggestive of right-sided median mononeuropathy. This is consistent with a recurrent right carpal tunnel syndrome, moderate to advanced in nature. 2. There is no electrodiagnostic evidence for right sided ulnar neuropathy, including cubital tunnel syndrome 3. No electrodiagnostic evidence is noted for cervical radiculopathy Multi Select Codes Neurology Neurology Interp Codes: 50505-86 Musc test done w/n test comp (interp) and 86729-68 Nrv cndj tst 5-6 studies (interp)
== END | disposition home or self-care (01) ==
LOC: PSN 13:31
PROVIDERS: PCP Internal Medicine; Referring Provider Internal Medicine; Visit Provider Internal Medicine
DX: G56.21 Lesion of ulnar nerve, right upper limb (principal); Z98.890 Other specified postprocedural states
CPT/HCPCS: 95886; 95909

== ENCOUNTER 2024-12-31 08:15 | Outpatient (RCR) | payer OTHER, SELFPAY ==
[2024-12-17 10:01] VITALS: BP 131/75; PULSE 61; RESP 18; TEMP 36.1
--- NOTE | 2024-12-17 11:52 | PCM.WC.HP ---
History of Present Illness Date of Service: 12/17/24 Chief Complaint: Left lower extremity ulcerations History of Wound: 54-year-old white male with obesity and multiple medical issues especially blood pressure and peripheral vascular disease and venous insufficiency. Developed spontaneous open areas on his left lower leg after hitting his coffee table and then neglecting to wear his compression stockings for just a few days while it was so hot causing severe edema. Present for approximately 1-2 weeks. He has previously suffered from ulcerations in his lower extremities, which occurred as a result of chronic venous insufficiency. Prior ulcerations have healed spontaneously. The patient had been using topical preparations such as chlorhexidine and Adaptic. He had been treated by his primary care physician with courses of oral Keflex because patient was worried he was getting cellulitis also, which have been completed. He experiences swelling in both lower extremities, which is said to be worse at the end of each day. His swelling has occurred for many years. He sleeps on a flat mattress at night. He is active, and seeks exercise by means of swimming. He denies a history of thrombophlebitis. 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 Recently, the patient's primary care physician does have him on lasix in an attempt to address issues related to lower extremity swelling. Since has been so long since he has had any studies done were going to go ahead and order leg studies for arterial and venous to see if he has blockages in his vein connectors. [facility] Medical History Chronic venous hypertension w/ulcer and inflammation involv left side History of hemorrhoids History of gastrointestinal hemorrhage History of vertigo Fatty liver History of gout Hypertriglyceridemia Hypothyroidism Diabetes mellitus Chronic venous insufficiency of lower extremity Hypertension Morbid obesity with BMI of 45.0-49.9, adult Lipodermatosclerosis of both lower extremities Hyperpigmentation Right leg swelling Left leg swelling Venous ulcer of left leg Leg ulcer, left Home Medications Medication Instructions Recorded Last Taken Type allopurinol 300 mg tablet 300 mg PO DAILY 01/10/22 Unknown History clonidine HCl 0.2 mg tablet 0.2 mg PO BID 01/10/22 Unknown History diltiazem HCl 360 mg PO/SL DAILY 01/10/22 Unknown History fluoxetine 40 mg capsule (Prozac) 40 mg PO DAILY 01/10/22 Unknown History furosemide 40 mg tablet (Lasix) 40 mg PO BID 01/10/22 Unknown History levothyroxine 25 mcg capsule 25 mcg PO DAILY 01/10/22 Unknown History losartan 100 mg tablet 100 mg PO DAILY 01/10/22 Unknown History metoprolol succinate 100 mg 100 mg PO 1XD 01/10/22 Unknown History tablet,extended release 24 hr buspirone 5 mg tablet 5 mg PO BID 12/17/24 Unknown History Allergy/AdvReac Type Severity Reaction Status Date / Time ibuprofen Allergy Other Verified 01/10/22 10:50 aripiprazole (From Abilify) AdvReac Other Verified 01/10/22 10:50 ROS Constitutional Constitutional: Reports systems reviewed and no addt'l complaints, except as documented Eyes Eyes: Reports systems reviewed and no addt'l complaints, except as documented ENT HEENT: Reports systems reviewed and no addt'l complaints, except as documented Cardiovascular Cardiovascular: Reports systems reviewed and no addt'l complaints, except as documented Respiratory/Chest Respiratory/Chest: Reports systems reviewed and no addt'l complaints, except as documented Gastrointestinal Gastrointestinal: Reports systems reviewed and no addt'l complaints, except as documented Genitourinary Genitourinary: Reports systems reviewed and no addt'l complaints, except as documented Musculoskeletal Musculoskeletal: Reports systems reviewed and no addt'l complaints, except as documented Integumentary Integumentary: Reports wounds and other Details: Open chronic ulcers on his lower extremities of his left leg with swelling and edema and erythema on his left leg Neurologic Neurologic: Reports systems reviewed and no addt'l complaints, except as documented Psychiatric Psychiatric: Reports systems reviewed and no addt'l complaints, except as documented Endocrine Endocrinology: Reports systems reviewed and no addt'l complaints, except as documented Hematologic/Lymphatic Hematologic/Lymphatic: Reports systems reviewed and no addt'l complaints, except as documented Allergic/Immunologic Allergic/Immunologic: Reports systems reviewed and no addt'l complaints, except as documented Vital Signs Vital Signs Vital Signs: 12/17/24 10:01 Temperature 97 F L Temperature Source Temporal Pulse Rate 61 Respiratory Rate 18 Blood Pressure 131/75 H Blood Pressure Mean 93 Blood Pressure Source Monitor Blood Pressure Position Sitting Blood Pressure Location Right Arm Oxygen Delivery Method Room Air Physical Exam Const oriented x3 General Appearance: cooperative Exam Limitations: no limitations HEENT normocephalic Head and Scalp: normal to inspection Face and Sinus: normal facial exam Nose: external nose normal General Ear: hearing grossly impaired External Ear: external ears normal Eyes General Eye: normal appearance of both eyes Neck General: normal visual inspection Resp normal respiratory effort Effort and Inspection: able to speak in complete sentences Cardio regular rate and regular rhythm Palpation: normal PMI Rate: regular rate Rhythm: regular rhythm GI Inspection: pannus present Palpation: soft and no hepatosplenomegaly external exam normal Back/Spine Cervical Spine: cervical ROM normal Thoracic Spine / Upper Back: normal to inspection Lumbar Spine / Lower Back: normal to inspection Extremity General Extremity: normal exam except as noted and other findings Other Details: Swelling and open sores on the left leg and edema and redness Skin Skin Narrative: Ulcers on the left leg some have slough and fibrin in them little bit of depth down to the fat tissue without necrosis Neuro oriented x3 Psych Appearance: grossly normal Speech: normal speech Thought Content: normal thought content Judgement: judgement good Debridement Note Debridement Note Wound debrided: Left leg superior ulcer Laterality: Left Type of Debridement: Excisional debridement Anesthesia Used: 5% Lidocaine Gel Depth: in the subcutaneous layer Percentage of wound debrided: 100 Instrument Used: 5mm curette Tissue Removed: Fibrin and devitalized tissue Severity: Fat Layer Exposed Amount of bleeding with debridement: Mild Bleeding Controlled with: Compression and gauze Patient tolerated procedure: Patient tolerated procedure well Post-Debridement Measurements and Additional Note: Post-Debridement Measurements/Treatment - Nurse 1 - General Ulcer Assessment Start: 12/17/24 10:01 Freq: Status: Active Protocol: RACHEL Activity Type Activity Date Activity User E-sign Co-sign Detail Recorded Client Recorded Date Recorded By Document 12/17/24 10:01 ND [id number] 12/17/24 10:18 ND 12/17/24 10:01 - Today's Visit Information Type of service Initial Visit Arrival Mode Ambulatory Accompanied by self Patient Identification Verified (Name & Yes ) Safety Precautions Fall Prevention Vital Signs Temperature (97.8 F-99.1 F) 97 F L Temperature Source Temporal Pulse Rate (60-100) 61 Pulse Location Monitor Respiratory Rate (12-18) 18 Respiratory rate source Observation Oxygen Delivery Method Room Air Blood Pressure (90/60-120/80) 131/75 H Blood Pressure Mean 93 Source Monitor Position Sitting Blood Pressure Location Right Arm History Since Last Visit- (Skip if this is Patient's initial visit) Has dressing in place as prescribed Yes Has compression in place as prescribed Yes Has offloadiing in place as prescribed Yes Experienced any changes in pain level or Yes management Left Footwear Regular Shoe Right Footwear Regular Shoe Pain Scale: 0-10 Numeric Is Patient Pain Free? Yes - Nurse 1 - General Ulcer Measurement Start: 12/17/24 10:01 Freq: Status: Active Protocol: Activity Type Activity Date Activity User E-sign Co-sign Detail Recorded Client Recorded Date Recorded By Document 12/17/24 10:01 ND [id number] 12/17/24 10:18 ND 12/17/24 10:01 Wound Center Nurse 1 #3 Left Lateral Lower Extremity cluster -Current Size (cm) - Length 10 -Current Size (cm) - Width 11.5 -Current Size (cm) - Depth 0.1 -Total Square Cm 115.0 -Date of Last Picture (Recall this 12/17/24 field) -Photo Taken Yes -Epithelialization Small 1-33% -Tunneling No -Undermining/Tunneling No -Circular Undermining No -Exudate Amt Medium -Exudate Type Sanguineous -Wound Margin Flat & Intact -Granulation Amt Large (67-100%) -Granulation Quality Pale,Friendly -Necrosis Amt Small (1-33%) -Texture (Mahnaz-wound Skin Appearance) Assessed -Moisture (Mahnaz-wound Skin Appearance) Assessed, Maceration -Color (Mahnaz-wound Skin Appearance) Assessed, Hemosiderin Staining -Temperature (Mahnaz-wound Skin No Abnormality Appearance) (Pt Warm) -Tenderness on Palpation (Mahnaz-wound No Skin Appearance) -Ulcer Cleansing Soap and Water -Foul Odor after Cleansing No -Anesthetic Used 5% Lidocaine Gel Left Calf (cm) 47 Left Ankle (cm) 23 - Nurse 2 - General Ulcer CM Notes Start: 12/17/24 10:01 Freq: Status: Active Protocol: Activity Type Activity Date Activity User E-sign Co-sign Detail Recorded Client Recorded Date Recorded By Document 12/17/24 10:33 [facility] [id number] 12/17/24 10:43 [facility] 12/17/24 10:33 Wound Center Nurse 2 #3 Left Lateral Lower Extremity cluster -Time 10:33 -Correct Patient Yes -Correct Side, Site, Position Yes -Correct Procedure Yes -Procedure Performed Yes -Type of Procedure Debridement -Clinical Debridement Subcutaneous -Tissue Removed Subcutaneous -Post Debridement (cm) - Length 9 -Post Debridement (cm) - Width 11.2 -Post Debridement (cm) - Depth 0.2 -Total Square (Post) (cm) 100.8 -Area of Debridement (cm) - Length 9 -Area of Debridement (cm) - Width 11.2 -Total Square (Area) (cm) 100.8 -Tunneling No -Undermining/Tunneling No -Circular Undermining No -Wound/Ulcer Outcome Not Healed -Ulcer Cleansing Rinsed/ Irrigated with Saline -Foul Odor after Cleansing No -Bioengineered Tissue No -Bleeding Controlled with Pressure -Treatment Response Procedure Tolerated Well -Debridement - Subq, 1st 20sq cm Yes Pain Scale: 0-10 Numeric Is Patient Pain Free? Yes - Nurse 3 - General Ulcer D/C NN Start: 12/17/24 10:01 Freq: Status: Active Protocol: Activity Type Activity Date Activity User E-sign Co-sign Detail Recorded Client Recorded Date Recorded By Document 12/17/24 10:50 ND [id number] 12/17/24 10:54 ND 12/17/24 10:50 Wound Care Center Nurse 3 #3 Left Lateral Lower Extremity cluster -Ulcer Cleansing Soap and Water -Foul Odor after Cleansing No -Negative Pressure Wound Therapy N/A -Other Dressing xeroform, abd -Primary Dressing Covered/Secured with Dry Gauze & Roll Gauze -Wound Comment(s) xeroform LLE -Tubular Bandage Double Layer -Size of Tubigrip Used Size F -Size F ($) 2 Pain Scale: 0-10 Numeric Is Patient Pain Free? Yes - Visit Discharge Discharge Condition Stable Ambulatory Status Ambulatory Transportation Private Auto Medication Reconcilliation completed & No provided to patient/care provider Clinical Summary of Care Provided Yes Notes: pt verbalizes understanding of new dressing Additional Wound Wound debrided: Inferior ulcer left leg Anesthesia Used: 5% Lidocaine Gel Depth: in the subcutaneous layer Percentage of wound debrided: 100 Instrument Used: 5mm curette Tissue Removed: Devitalized tissue and fibrin slough Severity: Fat Layer Exposed Amount of bleeding with debridement: Mild Bleeding Controlled with: Pressure and Compression and gauze Patient tolerated procedure: Patient tolerated procedure well Assessment/Plan Assessment/Plan (1) Leg ulcer, left: CODE(S): L97.929 - Non-pressure chronic ulcer of unspecified part of left lower leg with unspecified severity QUALIFIERS: Non-pressure ulcer stage: limited to breakdown of skin Qualified Code(s): L97.921 - Non-pressure chronic ulcer of unspecified part of left lower leg limited to breakdown of skin (2) Chronic venous hypertension w/ulcer and inflammation involv left side: CODE(S): I87.332 - Chronic venous hypertension (idiopathic) with ulcer and inflammation of left lower extremity; L97.929 - Non-pressure chronic ulcer of unspecified part of left lower leg with unspecified severity (3) Venous ulcer of left leg: CODE(S): I83.029 - Varicose veins of left lower extremity with ulcer of unspecified site; L97.929 - Non-pressure chronic ulcer of unspecified part of left lower leg with unspecified severity (4) Chronic venous insufficiency of lower extremity: CODE(S): I87.2 - Venous insufficiency (chronic) (peripheral) (5) Left leg swelling: CODE(S): M79.89 - Other specified soft tissue disorders (6) Right leg swelling: CODE(S): M79.89 - Other specified soft tissue disorders (7) Hyperpigmentation: CODE(S): L81.9 - Disorder of pigmentation, unspecified (8) Lipodermatosclerosis of both lower extremities: CODE(S): I83.11 - Varicose veins of right lower extremity with inflammation; I83.12 - Varicose veins of left lower extremity with inflammation (9) Morbid obesity with BMI of 45.0-49.9, adult: CODE(S): E66.01 - Morbid (severe) obesity due to excess calories; Z68.42 - Body mass index [BMI] 45.0-49.9, adult (10) Hypertension: CODE(S): I10 - Essential (primary) hypertension QUALIFIERS: Hypertension type: primary hypertension Qualified Code(s): I10 - Essential (primary) hypertension PLAN: Plan Wash left leg with antibacterial soap and water pat dry apply Xeroform dressing to wound base with Adaptic over top gauze and absorbent dressing Double layer Tubigrip on the left leg and he can wear his regular compression stocking on the right. Patient is to continue all his medications and follow-up in 1 week
--- NOTE | 2024-12-18 09:50 | WC ---
PHOTO-LEFT HERRERA 12/17/24
--- NOTE | 2024-12-19 09:30 | ART_ITS ---
Reason For Study Reason For Study: PVD, [place] Procedure A bilateral lower extremity continuous wave Doppler with analog waveform analysis,segmental pressures,and ankle brachial indexes without exercise. Left Segmental Pressures Left brachial= 132mmHg. Left posterior tibial artery = 156mmHg. Left dorsalis pedis artery = 157mmHg. Left digit = 125 mmHg. The left dorsalis pedis waveforms are triphasic. The left posterior tibial artery waveforms are triphasic. Right Segmental Pressures Right brachial= 133mmHg. Right posterior tibial artery = 167mmHg. Right dorsalis pedis artery = 143mmHg. Right digit = 128 mmHg. The right dorsalis pedis waveforms are triphasic. The right posterior tibial artery waveforms are triphasic. Indices The right ankle brachial index by the dorsalis pedis is 1.08. The right ankle brachial index by the posterior tibial artery is 1.26. The right digital-brachial index is 0.96. The left ankle brachial index by the dorsalis pedis is 1.18. The left ankle brachial index by the posterior tibial artery is 1.17. The left digital-brachial index is 0.94. VL/Lower Ext Art Exam w/o Exercis Interpretation Summary Triphasic Doppler waveforms are noted at ankle level bilaterally. Pulse-volume recordings appear diminished at digital level on the right, but satisfactory at all other levels bilaterally. Resting a nkle-brachial indices are normal bilaterally. Digital-brachial indices are normal bilaterally. Thre is no evidence of significant arterial occlusive disease in the lower extr emities bilaterally. Ordering Physician: Pinky Shanks Referring Physician: Terri Acevedo Performed By: CINDI ALCALA RVT
--- NOTE | 2024-12-19 09:30 | VDLE_ITS ---
Reason For Study Reason For Study: PVD, Edema RIGHT LEFT CFV is compressible, spontaneous, phasic, competent CFV is compressible, spontaneous, phasic, competent, and demonstrates normal augmentation. and demonstrates normal augmentation. FV is compressible, spontaneous, phasic, competent FV is compressible, spontaneous, phasic, competent and demonstrates normal augmentation. and demonstrates normal augmentation. POP V is compressible, spontaneous, phasic, competent POP V is compressible, spontaneous, phasic, competent and demonstrates normal augmentation. and demonstrates normal augmentation. T/P Trunk is compressible. T/P Trunk is compressible. PTV is compressible. PTV is compressible. RT PerV is compressible. LT PerV is compressible. SFJ is INCOMPETENT and measures 1.11 cm. SFJ is competent and measures 0.77 cm. GSV proximal thigh measures 0.62x0.65 cm. GSV proximal thigh measures 0.47x0.53 cm. GSV at knee measures 0.49x0.59 cm. GSV at knee measures 0.25x0.30 cm. GSV INCOMPETENT throughout for greater than 0.5 GSV is competent throughout. seconds. SSV mid calf is competent and measures 0.50x0.51 cm. ASV mid thigh is INCOMPETENT for greater than 0.5 seconds and measures 0.63x0.63 cm. SSV mid calf is competent and measures 0.34x0.33 cm. INCOMPETENT soldering machine operator helper noted at 5 cm above medial malleolus measuring 0.21 cm. Procedure Exam performed in department. This is a venous duplex using B-mode, color flow and spectral Doppler. The exam was diagnostic. Patient was scanned in reverse Trendelenburg position during reflux assessment. VL/Venous Duplex US - Mitchell Extrem Interpretation Summary Deep veins of the lower extremities are bilaterally patent and compressible seg mentally. There is no evidence of deep vein thrombosis on either side. Valvular competence appears intact within the p roximal deep venous systems bilaterally. The great saphenous veins appear bilaterally patent and compressible segmentall y. The right sapheno-femoral junction is incompetent . The left sapheno-femoral junction is competent . The right great saphenous vein appears segmentally incompetent. The left great saphenous vein appears segmentally competent. Small saphenous veins are patent and competent bilaterally. The accessory saphenous vein in the right mid-thigh is incompetent . An incompetent soldering machine operator helper vein is noted in the right medial calf, located 5 centimeters proximal to the right medial ma lleolus. Ordering Physician: Pinky Shanks Referring Physician: Terri Acevedo Performed By: Marlen Chowdhury RVT
[2024-12-24 09:05] VITALS: BP 166/82; PULSE 80; RESP 18; TEMP 36.1
--- NOTE | 2024-12-24 11:43 | PN.PCM_ITS ---
History of Present Illness Date of Service: 12/24/24 Chief Complaint: Left lower extremity ulcerations History of Wound: 54-year-old white male with obesity and multiple medical issues especially blood pressure and peripheral vascular disease and venous insufficiency. Developed spontaneous open areas on his left lower leg after hitting his coffee table and then neglecting to wear his compression stockings for just a few days while it was so hot causing severe edema. Present for approximately 1-2 weeks. He has previously suffered from ulcerations in his lower extremities, which occurred as a result of chronic venous insufficiency. Prior ulcerations have healed spontaneously. The patient had been using topical preparations such as chlorhexidine and Adaptic. He had been treated by his primary care physician with courses of oral Keflex because patient was worried he was getting cellulit is also, which have been completed. He experiences swelling in both lower extremities, which is said to be worse at the end of each day. His swelling has occurred for many years. He sleeps on a flat mattress at night. He is active, and seeks exercise by means of swimming. He denies a history of thrombophlebitis. 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 Recently, the patient's primary care physician does have him on lasix in an attempt to address issues related to lower extremity swelling. Since has been so long since he has had any studies done were going to go ahead and order leg studies for arterial and venous to see if he has blockages in his vein connectors. Progress of Wound: So left leg is showing some hypergranulation that Sultana hits with some nitrous and the inferior part of the wound is healing nicely around the back of the leg. We will continue using the Xeroform he can restart that tomorrow and he also knocked off his right great toe and apparently it has some maggots underneath it so you are having podiatry look at his great toe and treated. Subjective Subjective Patient is happy with outcomes of his leg and feels that it is healing well. He is being compliant with his compressions and dressing changes. Objective Data Objective Data No sign of infection in his left leg around the skin is flesh-colored and healing well showed some hypergranulation so we will hit it with some nitrous and then put a dry dressing on for 24 hours then he can restart using the Xeroform for the next week. Vital Signs: Vital Signs Temp Pulse Resp BP O2 Del Method 97 F L 80 18 166/82 H Room Air 12/24/24 09:05 12/24/24 09:05 12/24/24 09:05 12/24/24 09:05 12/17/24 10:01 Oxygen Delivery Method Room Air Physical Exam Const oriented x3 General Appearance: cooperative Exam Limitations: no limitations HEENT normocephalic Head and Scalp: normal to inspection Face and Sinus: normal facial exam Nose: external nose normal General Ear: hearing grossly impaired External Ear: external ears normal Eyes General Eye: normal appearance of both eyes Neck General: normal visual inspection Resp normal respiratory effort Effort and Inspection: able to speak in complete sentences Cardio regular rate and regular rhythm Palpation: normal PMI Rate: regular rate Rhythm: regular rhythm GI Inspection: pannus present Palpation: soft and no hepatosplenomegaly external exam normal Back/Spine Cervical Spine: cervical ROM normal Thoracic Spine / Upper Back: normal to inspection Lumbar Spine / Lower Back: normal to inspection Extremity General Extremity: normal exam except as noted and other findings Other Details: Swelling and open sores on the left leg and edema and redness Skin Skin Narrative: Ulcers on the left leg some have slough and fibrin in them little bit of depth down to the fat tissue without necrosis Neuro oriented x3 Psych Appearance: grossly normal Speech: normal speech Thought Content: normal thought content Judgement: judgement good Debridement Note Debridement Note Wound debrided: Left leg superior ulcer Laterality: Left Type of Debridement: Excisional debridement Anesthesia Used: 5% Lidocaine Gel Depth: in the subcutaneous layer Percentage of wound debrided: 100 Instrument Used: 5mm curette Tissue Removed: Fibrin and devitalized tissue Severity: Fat Layer Exposed Amount of bleeding with debridement: Mild Bleeding Controlled with: Compression and gauze Patient tolerated procedure: Patient tolerated procedure well Post-Debridement Measurements and Additional Note: Post-Debridement Measurements/Treatment EDUARDO - Nurse 1 - General Ulcer Assessment Start: 12/17/24 10:01 Freq: Status: Active Protocol: RACHEL Activity Type Activity Date Activity User E-sign Co-sign Detail Recorded Client Recorded Date Recorded By Document 12/17/24 10:01 MT [id number] 12/17/24 10:18 MT Document 12/24/24 09:05 DL [id number] 12/24/24 09:15 DL 12/17/24 12/24/24 10:01 09:05 WC - Today's Visit Information Type of service Initial Visit Follow-up Visit (Physician/POWDER MONKEY ) Arrival Mode Ambulatory Ambulatory Transfer Assistance None Accompanied by self Patient Identification Verified (Name & Yes Yes ) Patient Requires Transmission-Based No Precautions Safety Precautions Fall Prevention Vital Signs Temperature (97.8 F-99.1 F) 97 F L 97 F L Temperature Source Temporal Temporal Pulse Rate (60-100) 61 80 Pulse Location Monitor Monitor Respiratory Rate (12-18) 18 18 Respiratory rate source Observation Observation Oxygen Delivery Method Room Air Blood Pressure (90/60-120/80) 131/75 H 166/82 H Blood Pressure Mean (mm Hg) 93 110 Source Monitor Monitor Position Sitting Blood Pressure Location Right Arm History Since Last Visit- (Skip if this is Patient's initial visit) Have you changed medications since your No last visit? Any new allergies or adverse reactions No Had a fall/change in ADL's that may No increase risk of falls Signs or symptoms of abuse and/or No neglect since last visit Have you been in the hospital since your No last visit? Has dressing in place as prescribed Yes Yes Has compression in place as prescribed Yes No Has offloadiing in place as prescribed Yes N/A Experienced any changes in pain level or Yes No management Left Footwear Regular Shoe Right Footwear Regular Shoe Pain Scale: 0-10 Numeric Is Patient Pain Free? Yes Yes - Nurse 1 - General Ulcer Measurement Start: 12/17/24 10:01 Freq: Status: Active Protocol: Activity Type Activity Date Activity User E-sign Co-sign Detail Recorded Client Recorded Date Recorded By Document 12/17/24 10:01 W[place] [id number] 12/17/24 10:18 W[place] Document 12/24/24 09:05 [id number] 12/24/24 09:15 DL 12/17/24 12/24/24 10:01 09:05 Wound Center Nurse 1 #3 Left Lateral Lower Extremity cluster -Current Size (cm) - Length 10 6.5 -Current Size (cm) - Width 11.5 10.3 -Current Size (cm) - Depth 0.1 0.1 -Total Square Cm 115.0 66.95 -Date of Last Picture (Recall this 12/17/24 field) -Photo Taken Yes -Epithelialization Small 1-33% -Tunneling No -Undermining/Tunneling No -Circular Undermining No -Exudate Amt Medium Medium -Exudate Type Sanguineous Serosanguineous -Wound Margin Flat & Intact Distinct, Outline Attached -Granulation Amt Large (67-100%) Large (67-100%) -Granulation Quality Pale,[place] Red -Necrosis Amt Small (1-33%) None Present (0 %) -Structure Exposed N/A -Texture (Mahnaz-wound Skin Appearance) Assessed Scarring -Moisture (Mahnaz-wound Skin Appearance) Assessed, No Abnormality Maceration -Color (Mahnaz-wound Skin Appearance) Assessed, No Abnormality Hemosiderin Staining -Temperature (Mahnaz-wound Skin No Abnormality No Abnormality Appearance) (Pt Warm) (Pt Warm) -Tenderness on Palpation (Mahnaz-wound No Skin Appearance) -Ulcer Cleansing Soap and Water Soap and Water -Foul Odor after Cleansing No No -Anesthetic Used 5% Lidocaine 5% Lidocaine Gel Gel Left Calf (cm) 47 47 Left Ankle (cm) 23 25.5 WC - Nurse 2 - General Ulcer CM Notes Start: 12/17/24 10:01 Freq: Status: Active Protocol: Activity Type Activity Date Activity User E-sign Co-sign Detail Recorded Client Recorded Date Recorded By Document 12/17/24 10:33 BMF [id number] 12/17/24 10:43 BMF Document 12/24/24 09:26 BMF [id number] 12/24/24 09:39 BMF Edit Result 12/24/24 09:26 BMF (1) [id number] 12/24/24 09:43 BMF Document 12/24/24 09:53 DS [id number] 12/24/24 10:02 DS (1) #4- R GREAT TOE - Time => 09:43 12/17/24 12/24/24 12/24/24 10:33 09:26 09:53 Wound Center Nurse 2 #4- R GREAT TOE -Time 09:43 09:54 -Correct Patient Yes -Correct Side, Site, Position Yes -Correct Procedure Yes -Procedure Performed Yes -Type of Procedure Incision & Drainage -Wound/Ulcer Outcome Not Healed -Ulcer Cleansing Rinsed/ Irrigated with Saline -Injectable Lidocaine w/ Epi (%) 2 -Bleeding Controlled with Pressure -Wound Comment(s) RIGHT GREAT TOENAIL REMOVED - [id number] #3 Left Lateral Lower Extremity cluster -Time 10:33 09:26 -Correct Patient Yes Yes -Correct Side, Site, Position Yes Yes -Correct Procedure Yes Yes -Procedure Performed Yes Yes -Type of Procedure Debridement Debridement -Clinical Debridement Subcutaneous Subcutaneous -Tissue Removed Subcutaneous Subcutaneous -Post Debridement (cm) - Length 9 7 -Post Debridement (cm) - Width 11.2 10.5 -Post Debridement (cm) - Depth 0.2 0.1 -Total Square (Post) (cm) 100.8 73.5 -Area of Debridement (cm) - Length 9 7 -Area of Debridement (cm) - Width 11.2 10.5 -Total Square (Area) (cm) 100.8 73.5 -Tunneling No No -Undermining/Tunneling No No -Circular Undermining No No -Wound/Ulcer Outcome Not Healed Not Healed -Ulcer Cleansing Rinsed/ Rinsed/ Irrigated with Irrigated with Saline Saline -Foul Odor after Cleansing No No -Bioengineered Tissue No No -Bleeding Controlled with Pressure Pressure -Treatment Response Procedure Procedure Tolerated Well Tolerated Well -Debridement - Subq, 1st 20sq cm Yes Yes Pain Scale: 0-10 Numeric Is Patient Pain Free? Yes Yes Yes - Nurse 3 - General Ulcer D/C NN Start: 12/17/24 10:01 Freq: Status: Active Protocol: Activity Type Activity Date Activity User E-sign Co-sign Detail Recorded Client Recorded Date Recorded By Document 12/17/24 10:50 WY [id number] 12/17/24 10:54 WY Document 12/24/24 10:26 RB [id number] 12/24/24 10:28 RB 12/17/24 12/24/24 10:50 10:26 Wound Care Center Nurse 3 #4- R GREAT TOE -Ulcer Cleansing BETADINE -Primary Dressing Applied NonAdherent Contact Layer -Primary Dressing Covered/Secured with Dry Gauze,Other -Other Covering COBAN #3 Left Lateral Lower Extremity cluster -Ulcer Cleansing Soap and Water -Foul Odor after Cleansing No -Negative Pressure Wound Therapy N/A -Other Dressing xeroform, abd XEROFORM -Primary Dressing Covered/Secured with Dry Gauze & Dry Gauze & Roll Gauze Roll Gauze -Wound Comment(s) xeroform LLE -Tubular Bandage Double Layer Double Layer -Size of Tubigrip Used Size F Size F -Size F ($) 2 2 Treatment Response Procedure Tolerated Well Pain Scale: 0-10 Numeric Is Patient Pain Free? Yes Yes WC - Visit Discharge Discharge Condition Stable Stable Ambulatory Status Ambulatory Ambulatory Transportation Private Auto Private Auto Medication Reconcilliation completed & No No provided to patient/care provider Clinical Summary of Care Provided Yes Yes Notes: pt verbalizes understanding of new dressing Additional Wound Wound debrided: Inferior ulcer left leg Anesthesia Used: 5% Lidocaine Gel Depth: in the subcutaneous layer Percentage of wound debrided: 100 Instrument Used: 5mm curette Tissue Removed: Devitalized tissue and fibrin slough Severity: Fat Layer Exposed Amount of bleeding with debridement: Mild Bleeding Controlled with: Pressure and Compression and gauze Patient tolerated procedure: Patient tolerated procedure well Assessment/Plan Assessment/Plan (1) Leg ulcer, left: CODE(S): L97.929 - Non-pressure chronic ulcer of unspecified part of left lower leg with unspecified severity QUALIFIERS: Non-pressure ulcer stage: limited to breakdown of skin Qualified Code(s): L97.921 - Non-pressure chronic ulcer of unspecified part of left lower leg limited to breakdown of skin (2) Chronic venous hypertension w/ulcer and inflammation involv left side: CODE(S): I87.332 - Chronic venous hypertension (idiopathic) with ulcer and inflammation of left lower extremity; L97.929 - Non-pressure chronic ulcer of unspecified part of left lower leg with unspecified severity (3) Venous ulcer of left leg: CODE(S): I83.029 - Varicose veins of left lower extremity with ulcer of unspecified site; L97.929 - Non-pressure chronic ulcer of unspecified part of left lower leg with unspecified severity (4) Chronic venous insufficiency of lower extremity: CODE(S): I87.2 - Venous insufficiency (chronic) (peripheral) (5) Left leg swelling: CODE(S): M79.89 - Other specified soft tissue disorders (6) Right leg swelling: CODE(S): M79.89 - Other specified soft tissue disorders (7) Hyperpigmentation: CODE(S): L81.9 - Disorder of pigmentation, unspecified (8) Lipodermatosclerosis of both lower extremities: CODE(S): I83.11 - Varicose veins of right lower extremity with inflammation; I83.12 - Varicose veins of left lower extremity with inflammation (9) Morbid obesity with BMI of 45.0-49.9, adult: CODE(S): E66.01 - Morbid (severe) obesity due to excess calories; Z68.42 - Body mass index [BMI] 45.0-49.9, adult (10) Hypertension: CODE(S): I10 - Essential (primary) hypertension QUALIFIERS: Hypertension type: primary hypertension Qualified Code(s): I10 - Essential (primary) hypertension PLAN: Plan Wash left leg with antibacterial soap and water pat dry apply Xeroform dressing to wound base with Adaptic over top gauze and absorbent dressing Double layer Tubigrip on the left leg and he can wear his regular compression stocking on the right. Patient is to continue all his medications and follow- up in 1 week
--- NOTE | 2024-12-24 14:21 | WC ---
PHOTO-RIGHT GREAT TOE 12/24/24
--- NOTE | 2024-12-25 16:36 | HP.PCM_ITS ---
History of Present Illness Date of Service: 12/25/24 Chief Complaint: Left lower extremity ulcerations History of Wound: 54-year-old white male with obesity and multiple medical issues especially blood pressure and peripheral vascular disease and venous insufficiency. Developed spontaneous open areas on his left lower leg after hitting his coffee table and then neglecting to wear his compression stockings for just a few days while it was so hot causing severe edema. Present for approximately 1-2 weeks. He has previously suffered from ulcerations in his lower extremities, which occurred as a result of chronic venous insufficiency. Prior ulcerations have healed spontaneously. The patient had been using topical preparations such as chlorhexidine and Adaptic. He had been treated by his primary care physician with courses of oral Keflex because patient was worried he was getting cellulit is also, which have been completed. He experiences swelling in both lower extremities, which is said to be worse at the end of each day. His swelling has occurred for many years. He sleeps on a flat mattress at night. He is active, and seeks exercise by means of swimming. He denies a history of thrombophlebitis. 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 Recently, the patient's primary care physician does have him on lasix in an attempt to address issues related to lower extremity swelling. Since has been so long since he has had any studies done were going to go ahead and order leg studies for arterial and venous to see if he has blockages in his vein connectors. Progress of Wound: Patient is a 54-year-old male presenting to wound care center today for evaluation of full-thickness wound to the left leg. He has seen nurse practitioner Dr. Vance for treatment of this leg wound to left lower extremity. I was consulted during the wound care center today for evaluation of a loose toenail to left great toe with evidence of maggots and malodor as well as discoloration. Patient does admit to trauma. Denies constitutional symptoms. No other pedal complaints at this time. [facility] Medical History Chronic venous hypertension w/ulcer and inflammation involv left side History of hemorrhoids History of gastrointestinal hemorrhage History of vertigo Fatty liver History of gout Hypertriglyceridemia Hypothyroidism Diabetes mellitus Chronic venous insufficiency of lower extremity Hypertension Morbid obesity with BMI of 45.0-49.9, adult Lipodermatosclerosis of both lower extremities Hyperpigmentation Right leg swelling Left leg swelling Venous ulcer of left leg Leg ulcer, left Home Medications Medication Instructions Recorded Last Taken Type allopurinol 300 mg tablet 300 mg PO DAILY 01/10/22 Unk nown History clonidine HCl 0.2 mg tablet 0.2 mg PO BID 01/10/22 Unk nown History diltiazem HCl 360 mg PO/SL DAILY 01/10/22 Unknown History fluoxetine 40 mg capsule (Prozac) 40 mg PO DAILY 01/10 Unknown History furosemide 40 mg tablet (Lasix) 40 mg PO BID 01/10/22 Unknown History levothyroxine 25 mcg capsule 25 mcg PO DAILY 01/10/22 Unknown History losartan 100 mg tablet 100 mg PO DAILY 01/10/22 Unk nown History metoprolol succinate 100 mg 100 mg PO 1XD 01/10/22 Unk nown History tablet,extended release 24 hr buspirone 5 mg tablet 5 mg PO BID 12/17/24 Unknown History Allergy/AdvReac Type Severity Reaction Status Date / Time ibuprofen Allergy Other Verified 01/10/22 10:50 aripiprazole (From [email or web address]) AdvReac Other Verified 01/10/22 10:50 Physical Exam Narrative Vascular: DP and PT pulses palpable. CFT brisk. No erythema or proximal streaking. Skin temperature is warm to warm with no focal increase. Neurologic: Light touch and epicritic sensations intact. Protective sensation intact to 10/10 sites with 5.07 Clark-Mary monofilament. Dermatologic: Evidence of loose left hallux toenail with evidence of maggot infestation. Malodor is appreciated. Negative probe to bone. Musculoskeletal: No pain on palpation left hallux. No pain with calf pressure. Debridement Note Debridement Note Post-Debridement Measurements and Additional Note: Post-Debridement Measurements/Treatment WC - Nurse 1 - General Ulcer Assessment Start: 12/17/24 10:01 Freq: Status: Active Protocol: RACHEL Activity Type Activity Date Activity User E-sign Co-sign Detail Recorded Client Recorded Date Recorded By Document 12/17/24 10:01 MT [id number] 12/17/24 10:18 MT Document 12/24/24 09:05 DL [id number] 12/24/24 09:15 DL 12/17/24 12/24/24 10:01 09:05 - Today's Visit Information Type of service Initial Visit Follow-up Visit (Physician/STOCK SPECULATOR ) Arrival Mode Ambulatory Ambulatory Transfer Assistance None Accompanied by self Patient Identification Verified (Name & Yes Yes ) Patient Requires Transmission-Based No Precautions Safety Precautions Fall Prevention Vital Signs Temperature (97.8 F-99.1 F) 97 F L 97 F L Temperature Source Temporal Temporal Pulse Rate (60-100) 61 80 Pulse Location Monitor Monitor Respiratory Rate (12-18) 18 18 Respiratory rate source Observation Observation Oxygen Delivery Method Room Air Blood Pressure (90/60-120/80) 131/75 H 166/82 H Blood Pressure Mean 93 110 Source Monitor Monitor Position Sitting Blood Pressure Location Right Arm History Since Last Visit- (Skip if this is Patient's initial visit) Have you changed medications since your No last visit? Any new allergies or adverse reactions No Had a fall/change in ADL's that may No increase risk of falls Signs or symptoms of abuse and/or No neglect since last visit Have you been in the hospital since your No last visit? Has dressing in place as prescribed Yes Yes Has compression in place as prescribed Yes No Has offloadiing in place as prescribed Yes N/A Experienced any changes in pain level or Yes No management Left Footwear Regular Shoe Right Footwear Regular Shoe Pain Scale: 0-10 Numeric Is Patient Pain Free? Yes Yes - Nurse 1 - General Ulcer Measurement Start: 12/17/24 10:01 Freq: Status: Active Protocol: Activity Type Activity Date Activity User E-sign Co-sign Detail Recorded Client Recorded Date Recorded By Document 12/17/24 10:01 ME [id number] 12/17/24 10:18 ME Document 12/24/24 09:05 [id number] 12/24/24 09:15 DL 12/17/24 12/24/24 10:01 09:05 Wound Center Nurse 1 #3 Left Lateral Lower Extremity cluster -Current Size (cm) - Length 10 6.5 -Current Size (cm) - Width 11.5 10.3 -Current Size (cm) - Depth 0.1 0.1 -Total Square Cm 115.0 66.95 -Date of Last Picture (Recall this 12/17/24 field) -Photo Taken Yes -Epithelialization Small 1-33% -Tunneling No -Undermining/Tunneling No -Circular Undermining No -Exudate Amt Medium Medium -Exudate Type Sanguineous Serosanguineous -Wound Margin Flat & Intact Distinct, Outline Attached -Granulation Amt Large (67-100%) Large (67-100%) -Granulation Quality Pale,[place] Red -Necrosis Amt Small (1-33%) None Present (0 %) -Structure Exposed N/A -Texture (Mahnaz-wound Skin Appearance) Assessed Scarring -Moisture (Mahnaz-wound Skin Appearance) Assessed, No Abnormality Maceration -Color (Mahnaz-wound Skin Appearance) Assessed, No Abnormality Hemosiderin Staining -Temperature (Mahnaz-wound Skin No Abnormality No Abnormality Appearance) (Pt Warm) (Pt Warm) -Tenderness on Palpation (Mahnaz-wound No Skin Appearance) -Ulcer Cleansing Soap and Water Soap and Water -Foul Odor after Cleansing No No -Anesthetic Used 5% Lidocaine 5% Lidocaine Gel Gel Left Calf (cm) 47 47 Left Ankle (cm) 23 25.5 WC - Nurse 2 - General Ulcer CM Notes Start: 12/17/24 10:01 Freq: Status: Active Protocol: Activity Type Activity Date Activity User E-sign Co-sign Detail Recorded Client Recorded Date Recorded By Document 12/17/24 10:33 BMF [id number] 12/17/24 10:43 BMF Edit Result 12/17/24 10:33 BMF (1) [id number] 12/24/24 13:21 BMF Document 12/24/24 09:26 BMF [id number] 12/24/24 09:39 BMF Edit Result 12/24/24 09:26 BMF (2) [id number] 12/24/24 09:43 BMF Edit Result 12/24/24 09:26 BMF (3) [id number] 12/25/24 12:11 BMF Document 12/24/24 09:53 DS [id number] 12/24/24 10:02 DS (1) #3 Left Lateral Lower Extremity cluster - Debridement, SubQ, ea addt'l 20sq cm => 4 or part thereof (2) #4- R GREAT TOE - Time => 09:43 (3) #3 Left Lateral Lower Extremity cluster - Debridement, SubQ, ea addt'l 20sq cm => 3 or part thereof 12/17/24 12/24/24 12/24/24 10:33 09:26 09:53 Wound Center Nurse 2 #4- R GREAT TOE -Time 09:43 09:54 -Correct Patient Yes -Correct Side, Site, Position Yes -Correct Procedure Yes -Procedure Performed Yes -Type of Procedure Incision & Drainage -Wound/Ulcer Outcome Not Healed -Ulcer Cleansing Rinsed/ Irrigated with Saline -Injectable Lidocaine w/ Epi (%) 2 -Bleeding Controlled with Pressure -Wound Comment(s) RIGHT GREAT TOENAIL REMOVED - [id number] #3 Left Lateral Lower Extremity cluster -Time 10:33 09:26 -Correct Patient Yes Yes -Correct Side, Site, Position Yes Yes -Correct Procedure Yes Yes -Procedure Performed Yes Yes -Type of Procedure Debridement Debridement -Clinical Debridement Subcutaneous Subcutaneous -Tissue Removed Subcutaneous Subcutaneous -Post Debridement (cm) - Length 9 7 -Post Debridement (cm) - Width 11.2 10.5 -Post Debridement (cm) - Depth 0.2 0.1 -Total Square (Post) (cm) 100.8 73.5 -Area of Debridement (cm) - Length 9 7 -Area of Debridement (cm) - Width 11.2 10.5 -Total Square (Area) (cm) 100.8 73.5 -Tunneling No No -Undermining/Tunneling No No -Circular Undermining No No -Wound/Ulcer Outcome Not Healed Not Healed -Ulcer Cleansing Rinsed/ Rinsed/ Irrigated with Irrigated with Saline Saline -Foul Odor after Cleansing No No -Bioengineered Tissue No No -Bleeding Controlled with Pressure Pressure -Treatment Response Procedure Procedure Tolerated Well Tolerated Well -Debridement - Subq, 1st 20sq cm Yes Yes -Debridement, SubQ, ea addt'l 20sq cm 4 3 or part thereof Pain Scale: 0-10 Numeric Is Patient Pain Free? Yes Yes Yes WC - Nurse 3 - General Ulcer D/C NN Start: 12/17/24 10:01 Freq: Status: Active Protocol: Activity Type Activity Date Activity User E-sign Co-sign Detail Recorded Client Recorded Date Recorded By Document 12/17/24 10:50 MT [id number] 12/17/24 10:54 MT Document 12/24/24 10:26 RB [id number] 12/24/24 10:28 RB 12/17/24 12/24/24 10:50 10:26 Wound Care Center Nurse 3 #4- R GREAT TOE -Ulcer Cleansing BETADINE -Primary Dressing Applied NonAdherent Contact Layer -Primary Dressing Covered/Secured with Dry Gauze,Other -Other Covering COBAN #3 Left Lateral Lower Extremity cluster -Ulcer Cleansing Soap and Water -Foul Odor after Cleansing No -Negative Pressure Wound Therapy N/A -Other Dressing xeroform, abd XEROFORM -Primary Dressing Covered/Secured with Dry Gauze & Dry Gauze & Roll Gauze Roll Gauze -Wound Comment(s) xeroform LLE -Tubular Bandage Double Layer Double Layer -Size of Tubigrip Used Size F Size F -Size F ($) 2 2 Treatment Response Procedure Tolerated Well Pain Scale: 0-10 Numeric Is Patient Pain Free? Yes Yes WC - Visit Discharge Discharge Condition Stable Stable Ambulatory Status Ambulatory Ambulatory Transportation Private Auto Private Auto Medication Reconcilliation completed & No No provided to patient/care provider Clinical Summary of Care Provided Yes Yes Notes: pt verbalizes understanding of new dressing Assessment/Plan Assessment/Plan (1) Toe pain, left: CODE(S): M79.675 - Pain in left toe(s) PLAN: Patient was examined and evaluated. All fines were discussed with the patient. All questions were answered to the patient's satisfaction. At the time of exam patient with evidence of a loose toenail secondary to trauma with evidence of maggot infestation. Educated patient no need to remove the toenail at this time and clean out the maggots so he does not get a worse infection which she was understanding of. The left great toe was prepped and draped in normal aseptic manner. 3 cc of 2% Xylocaine plain was administered to the left hallux without incident. Which anesthesia was confirmed a nail avulsion was done using a sterile double-action nail nipper without incident. There is evidence of multiple maggots that were removed and discarded. The area was flushed with peroxide wiped clean and patted dry. Then the granular tissue was debrided with a number 5 mm dermal curette without incident. Again, the area was flushed with normal saline. No evidence of infestation or maggots were noted. The area was wiped clean and patted dry. The area was dressed with Betadine soaked Adaptic, dry sterile dressing and compression wrap. Patient will soak with Epsom salts and antibacterial soap slurry for 10 minutes for next 10 days and I will check on him weekly while at the wound care center. Patient was grateful for his care. (2) Ingrowing nail: CODE(S): L60.0 - Ingrowing nail
[2024-12-31 08:15] VITALS: BP 154/87; PULSE 65; RESP 18; TEMP 36.1
--- NOTE | 2024-12-31 11:36 | PN.PCM_ITS ---
History of Present Illness Date of Service: 12/31/24 Chief Complaint: Left lower extremity ulcerations History of Wound: 54-year-old white male with obesity and multiple medical issues especially blood pressure and peripheral vascular disease and venous insufficiency. Developed spontaneous open areas on his left lower leg after hitting his coffee table and then neglecting to wear his compression stockings for just a few days while it was so hot causing severe edema. Present for approximately 1-2 weeks. He has previously suffered from ulcerations in his lower extremities, which occurred as a result of chronic venous insufficiency. Prior ulcerations have healed spontaneously. The patient had been using topical preparations such as chlorhexidine and Adaptic. He had been treated by his primary care physician with courses of oral Keflex because patient was worried he was getting cellulit is also, which have been completed. He experiences swelling in both lower extremities, which is said to be worse at the end of each day. His swelling has occurred for many years. He sleeps on a flat mattress at night. He is active, and seeks exercise by means of swimming. He denies a history of thrombophlebitis. 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 Recently, the patient's primary care physician does have him on lasix in an attempt to address issues related to lower extremity swelling. Since has been so long since he has had any studies done were going to go ahead and order leg studies for arterial and venous to see if he has blockages in his vein connectors. Progress of Wound: Today the left leg is healing well it is more shallow and still partial circumferential to the left leg no sign of infection tolerating treatments well we will continue using Xeroform and gauze dressing. Patient is still wearing can pression and doing very well. He started his teaching position and is on his feet 14 hours a day. Subjective Subjective Patient is happy with outcomes has no concerns Objective Data Objective Data Will continue to use the Xeroform dressing with gauze dressing over top Vital Signs: Vital Signs Temp Pulse Resp BP O2 Del Method 97 F L 65 18 154/87 H Room Air 12/31/24 08:15 12/31/24 08:15 12/31/24 08:15 12/31/24 08:15 12/17/24 10:01 Oxygen Delivery Method Room Air Lab / Micro Data Attestation: I reviewed the patient's lab results. Physical Exam Const oriented x3 General Appearance: cooperative Exam Limitations: no limitations HEENT normocephalic Head and Scalp: normal to inspection Face and Sinus: normal facial exam Nose: external nose normal General Ear: hearing grossly impaired External Ear: external ears normal Eyes General Eye: normal appearance of both eyes Neck General: normal visual inspection Resp normal respiratory effort Effort and Inspection: able to speak in complete sentences Cardio regular rate and regular rhythm Palpation: normal PMI Rate: regular rate Rhythm: regular rhythm GI Inspection: pannus present Palpation: soft and no hepatosplenomegaly external exam normal Back/Spine Cervical Spine: cervical ROM normal Thoracic Spine / Upper Back: normal to inspection Lumbar Spine / Lower Back: normal to inspection Extremity General Extremity: normal exam except as noted and other findings Other Details: Swelling and open sores on the left leg and edema and redness Skin Skin Narrative: Ulcers on the left leg some have slough and fibrin in them little bit of depth down to the fat tissue without necrosis Neuro oriented x3 Psych Appearance: grossly normal Speech: normal speech Thought Content: normal thought content Judgement: judgement good Debridement Note Debridement Note Wound debrided: Left leg superior ulcer Laterality: Left Type of Debridement: Selective debridement Anesthesia Used: 5% Lidocaine Gel Depth: Down to and including healthy tissue Percentage of wound debrided: 100 Instrument Used: 5mm curette Tissue Removed: Fibrin and devitalized tissue Amount of bleeding with debridement: None Bleeding Controlled with: Compression and gauze Patient tolerated procedure: Patient tolerated procedure well Post-Debridement Measurements and Additional Note: Post-Debridement Measurements/Treatment EDUARDO - Nurse 1 - General Ulcer Assessment Start: 12/17/24 10:01 Freq: Status: Active Protocol: RACHEL Activity Type Activity Date Activity User E-sign Co-sign Detail Recorded Client Recorded Date Recorded By Document 12/17/24 10:01 MT [id number] 12/17/24 10:18 MT Document 12/24/24 09:05 DL [id number] 12/24/24 09:15 DL Document 12/31/24 08:15 RB [id number] 12/31/24 08:22 RB 12/17/24 12/24/24 12/31/24 10:01 09:05 08:15 - Today's Visit Information Type of service Initial Visit Follow-up Visit Follow-up Visit (Physician/COUNTER TOP ASSEMBLER (Physician/COUNTER TOP ASSEMBLER ) ) Arrival Mode Ambulatory Ambulatory Ambulatory Transfer Assistance None None Accompanied by self Patient Identification Verified (Name & Yes Yes Yes ) Patient Requires Transmission-Based No No Precautions Safety Precautions Fall Prevention Vital Signs Temperature (97.8 F-99.1 F) 97 F L 97 F L 97 F L Temperature Source Temporal Temporal Temporal Pulse Rate (60-100) 61 80 65 Pulse Location Monitor Monitor Monitor Respiratory Rate (12-18) 18 18 18 Respiratory rate source Observation Observation Monitor Oxygen Delivery Method Room Air Blood Pressure (90/60-120/80) 131/75 H 166/82 H 154/87 H Blood Pressure Mean (mm Hg) 93 110 109 Source Monitor Monitor Monitor Position Sitting Sitting Blood Pressure Location Right Arm Left Arm History Since Last Visit- (Skip if this is Patient's initial visit) Have you changed medications since your No No last visit? Any new allergies or adverse reactions No No Had a fall/change in ADL's that may No No increase risk of falls Signs or symptoms of abuse and/or No No neglect since last visit Have you been in the hospital since your No No last visit? Has dressing in place as prescribed Yes Yes Yes Has compression in place as prescribed Yes No Yes Has offloadiing in place as prescribed Yes N/A N/A Experienced any changes in pain level or Yes No No management Left Footwear Regular Shoe Regular Shoe Right Footwear Regular Shoe Regular Shoe Pain Scale: 0-10 Numeric Is Patient Pain Free? Yes Yes Yes WC - Nurse 1 - General Ulcer Measurement Start: 12/17/24 10:01 Freq: Status: Active Protocol: Activity Type Activity Date Activity User E-sign Co-sign Detail Recorded Client Recorded Date Recorded By Document 12/17/24 10:01 MT [id number] 12/17/24 10:18 MT Document 12/24/24 09:05 DL [id number] 12/24/24 09:15 DL Document 12/31/24 08:15 RB [id number] 12/31/24 08:22 RB 12/17/24 12/24/24 12/31/24 10:01 09:05 08:15 Wound Center Nurse 1 #4- R GREAT TOE -Combined with other wound No -Current Size (cm) - Length 0.1 -Current Size (cm) - Width 0.1 -Current Size (cm) - Depth 0.1 -Total Square Cm 0.01 -Photo Taken Yes -Tunneling No -Undermining/Tunneling No -Circular Undermining No -Exudate Amt Medium -Exudate Type Serosanguineous -Wound Margin Distinct, Outline Attached -Granulation Amt Large (67-100%) -Granulation Quality [place] -Slough/Fibrin Yes -Necrosis Amt Small (1-33%) -Necrotic Tissue Type Adherent Slough -Structure Exposed N/A -Texture (Mahnaz-wound Skin Appearance) Assessed, Scarring -Moisture (Mahnaz-wound Skin Appearance) Assessed -Color (Mahnaz-wound Skin Appearance) Assessed -Temperature (Mahnaz-wound Skin No Abnormality Appearance) (Pt Warm) -Tenderness on Palpation (Mahnaz-wound No Skin Appearance) -Ulcer Cleansing Wound Cleanser -Foul Odor after Cleansing No #3 Left Lateral Lower Extremity cluster -Combined with other wound No -Current Size (cm) - Length 10 6.5 9.5 -Current Size (cm) - Width 11.5 10.3 4.3 -Current Size (cm) - Depth 0.1 0.1 0.1 -Total Square Cm 115.0 66.95 40.85 -Date of Last Picture (Recall this 12/17/24 field) -Photo Taken Yes Yes -Epithelialization Small 1-33% -Tunneling No No -Undermining/Tunneling No No -Circular Undermining No No -Exudate Amt Medium Medium Medium -Exudate Type Sanguineous Serosanguineous Serosanguineous -Wound Margin Flat & Intact Distinct, Distinct, Outline Outline Attached Attached -Granulation Amt Large (67-100%) Large (67-100%) Medium (34-66%) -Granulation Quality Pale,[place] -Slough/Fibrin Yes -Necrosis Amt Small (1-33%) None Present (0 Medium (34-66%) %) -Necrotic Tissue Type Adherent Slough -Structure Exposed N/A N/A -Texture (Mahnaz-wound Skin Appearance) Assessed Scarring Assessed -Moisture (Mahnaz-wound Skin Appearance) Assessed, No Abnormality Assessed Maceration -Color (Mahnaz-wound Skin Appearance) Assessed, No Abnormality Assessed Hemosiderin Staining -Temperature (Mahnaz-wound Skin No Abnormality No Abnormality No Abnormality Appearance) (Pt Warm) (Pt Warm) (Pt Warm) -Tenderness on Palpation (Mahnaz-wound No No Skin Appearance) -Ulcer Cleansing Soap and Water Soap and Water Rinsed/ Irrigated with Saline -Foul Odor after Cleansing No No No -Anesthetic Used 5% Lidocaine 5% Lidocaine 5% Lidocaine Gel Gel Gel Right Calf (cm) 46.2 Right Ankle (cm) 26 Left Calf (cm) 47 47 Left Ankle (cm) 23 25.5 47.2 Left Foot (cm) 25.5 WC - Nurse 2 - General Ulcer CM Notes Start: 12/17/24 10:01 Freq: Status: Active Protocol: Activity Type Activity Date Activity User E-sign Co-sign Detail Recorded Client Recorded Date Recorded By Document 12/17/24 10:33 BMF [id number] 12/17/24 10:43 BMF Edit Result 12/17/24 10:33 BMF (1) [id number] 12/24/24 13:21 BMF Document 12/24/24 09:26 BMF [id number] 12/24/24 09:39 BMF Edit Result 12/24/24 09:26 BMF (2) [id number] 12/24/24 09:43 BMF Edit Result 12/24/24 09:26 BMF (3) [id number] 12/25/24 12:11 BMF Document 12/24/24 09:53 DS [id number] 12/24/24 10:02 DS Document 12/31/24 08:26 BMF [id number] 12/31/24 08:33 BMF Document 12/31/24 08:26 JF [id number] 12/31/24 08:27 JF (1) #3 Left Lateral Lower Extremity cluster - Debridement, SubQ, ea addt'l 20sq cm => 4 or part thereof (2) #4- R GREAT TOE - Time => 09:43 (3) #3 Left Lateral Lower Extremity cluster - Debridement, SubQ, ea addt'l 20sq cm => 3 or part thereof 12/17/24 12/24/24 12/24/24 10:33 09:26 09:53 Wound Center Nurse 2 #4- R GREAT TOE -Time 09:43 09:54 -Correct Patient Yes -Correct Side, Site, Position Yes -Correct Procedure Yes -Procedure Performed Yes -Type of Procedure Incision & Drainage -Post Debridement (cm) - Length -Post Debridement (cm) - Width -Post Debridement (cm) - Depth -Total Square (Post) (cm) -Area of Debridement (cm) - Length -Area of Debridement (cm) - Width -Total Square (Area) (cm) -Wound/Ulcer Outcome Not Healed -Ulcer Cleansing Rinsed/ Irrigated with Saline -Injectable Lidocaine w/ Epi (%) 2 -Bleeding Controlled with Pressure -Wound Comment(s) RIGHT GREAT TOENAIL REMOVED - [id number] #3 Left Lateral Lower Extremity cluster -Time 10:33 09:26 -Correct Patient Yes Yes -Correct Side, Site, Position Yes Yes -Correct Procedure Yes Yes -Procedure Performed Yes Yes -Type of Procedure Debridement Debridement -Clinical Debridement Subcutaneous Subcutaneous -Tissue Removed Subcutaneous Subcutaneous -Post Debridement (cm) - Length 9 7 -Post Debridement (cm) - Width 11.2 10.5 -Post Debridement (cm) - Depth 0.2 0.1 -Total Square (Post) (cm) 100.8 73.5 -Area of Debridement (cm) - Length 9 7 -Area of Debridement (cm) - Width 11.2 10.5 -Total Square (Area) (cm) 100.8 73.5 -Tunneling No No -Undermining/Tunneling No No -Circular Undermining No No -Wound/Ulcer Outcome Not Healed Not Healed -Ulcer Cleansing Rinsed/ Rinsed/ Irrigated with Irrigated with Saline Saline -Foul Odor after Cleansing No No -Bioengineered Tissue No No -Bleeding Controlled with Pressure Pressure -Treatment Response Procedure Procedure Tolerated Well Tolerated Well -Debridement - Subq, 1st 20sq cm Yes Yes -Debridement, SubQ, ea addt'l 20sq cm 4 3 or part thereof Pain Scale: 0-10 Numeric Is Patient Pain Free? Yes Yes Yes 12/31/24 12/31/24 08:26 08:26 Wound Center Nurse 2 #4- R GREAT TOE -Time -Correct Patient Yes -Correct Side, Site, Position No -Correct Procedure No -Procedure Performed No -Type of Procedure -Post Debridement (cm) - Length 0.1 -Post Debridement (cm) - Width 0.1 -Post Debridement (cm) - Depth 0.1 -Total Square (Post) (cm) 0.01 -Area of Debridement (cm) - Length 0.1 -Area of Debridement (cm) - Width 0.1 -Total Square (Area) (cm) 0.01 -Wound/Ulcer Outcome Not Healed -Ulcer Cleansing -Injectable Lidocaine w/ Epi (%) -Bleeding Controlled with -Wound Comment(s) #3 Left Lateral Lower Extremity cluster -Time 08:26 -Correct Patient Yes -Correct Side, Site, Position Yes -Correct Procedure Yes -Procedure Performed Yes -Type of Procedure Debridement -Clinical Debridement Subcutaneous -Tissue Removed Subcutaneous -Post Debridement (cm) - Length 7.5 -Post Debridement (cm) - Width 1 -Post Debridement (cm) - Depth 0.1 -Total Square (Post) (cm) 7.5 -Area of Debridement (cm) - Length 7.5 -Area of Debridement (cm) - Width 1 -Total Square (Area) (cm) 7.5 -Tunneling No -Undermining/Tunneling No -Circular Undermining No -Wound/Ulcer Outcome Not Healed -Ulcer Cleansing Rinsed/ Irrigated with Saline -Foul Odor after Cleansing No -Bioengineered Tissue No -Bleeding Controlled with Pressure -Treatment Response Procedure Tolerated Well -Debridement - Subq, 1st 20sq cm Yes -Debridement, SubQ, ea addt'l 20sq cm or part thereof Pain Scale: 0-10 Numeric Is Patient Pain Free? Yes Yes - Nurse 3 - General Ulcer D/C NN Start: 12/17/24 10:01 Freq: Status: Active Protocol: Activity Type Activity Date Activity User E-sign Co-sign Detail Recorded Client Recorded Date Recorded By Document 12/17/24 10:50 AR [id number] 12/17/24 10:54 AR Document 12/24/24 10:26 RB [id number] 12/24/24 10:28 RB Document 12/31/24 08:46 RB [id number] 12/31/24 08:47 RB 12/17/24 12/24/24 12/31/24 10:50 10:26 08:46 Wound Care Center Nurse 3 #4- R GREAT TOE -Ulcer Cleansing BETADINE Rinsed/ Irrigated with Saline -Primary Dressing Applied NonAdherent Contact Layer -Other Dressing bacitracin -Primary Dressing Covered/Secured with Dry Gauze,Other Dry Gauze, Secured with Tape -Other Covering COBAN #3 Left Lateral Lower Extremity cluster -Ulcer Cleansing Soap and Water Rinsed/ Irrigated with Saline -Foul Odor after Cleansing No -Negative Pressure Wound Therapy N/A -Other Dressing xeroform, abd XEROFORM xeroform -Primary Dressing Covered/Secured with Dry Gauze & Dry Gauze & Dry Gauze,Dry Roll Gauze Roll Gauze Gauze & Roll Gauze,Secured with Tape -Wound Comment(s) xeroform LLE -Tubular Bandage Double Layer Double Layer Double Layer -Size of Tubigrip Used Size F Size F Size F -Size F ($) 2 2 2 Treatment Response Procedure Procedure Tolerated Well Tolerated Well Pain Scale: 0-10 Numeric Is Patient Pain Free? Yes Yes Yes WC - Visit Discharge Discharge Condition Stable Stable Stable Ambulatory Status Ambulatory Ambulatory Ambulatory Transportation Private Auto Private Auto Private Auto Medication Reconcilliation completed & No No No provided to patient/care provider Clinical Summary of Care Provided Yes Yes Yes Notes: pt verbalizes understanding of new dressing Additional Wound Wound debrided: Inferior ulcer left leg Anesthesia Used: 5% Lidocaine Gel Depth: in the subcutaneous layer Percentage of wound debrided: 100 Instrument Used: 5mm curette Tissue Removed: Devitalized tissue and fibrin slough Severity: Fat Layer Exposed Amount of bleeding with debridement: Mild Bleeding Controlled with: Pressure and Compression and gauze Patient tolerated procedure: Patient tolerated procedure well Assessment/Plan Assessment/Plan (1) Leg ulcer, left: CODE(S): L97.929 - Non-pressure chronic ulcer of unspecified part of left lower leg with unspecified severity QUALIFIERS: Non-pressure ulcer stage: limited to breakdown of skin Qualified Code(s): L97.921 - Non-pressure chronic ulcer of unspecified part of left lower leg limited to breakdown of skin (2) Chronic venous hypertension w/ulcer and inflammation involv left side: CODE(S): I87.332 - Chronic venous hypertension (idiopathic) with ulcer and inflammation of left lower extremity; L97.929 - Non-pressure chronic ulcer of unspecified part of left lower leg with unspecified severity (3) Venous ulcer of left leg: CODE(S): I83.029 - Varicose veins of left lower extremity with ulcer of unspecified site; L97.929 - Non-pressure chronic ulcer of unspecified part of left lower leg with unspecified severity (4) Chronic venous insufficiency of lower extremity: CODE(S): I87.2 - Venous insufficiency (chronic) (peripheral) (5) Left leg swelling: CODE(S): M79.89 - Other specified soft tissue disorders (6) Right leg swelling: CODE(S): M79.89 - Other specified soft tissue disorders (7) Hyperpigmentation: CODE(S): L81.9 - Disorder of pigmentation, unspecified (8) Lipodermatosclerosis of both lower extremities: CODE(S): I83.11 - Varicose veins of right lower extremity with inflammation; I83.12 - Varicose veins of left lower extremity with inflammation (9) Morbid obesity with BMI of 45.0-49.9, adult: CODE(S): E66.01 - Morbid (severe) obesity due to excess calories; Z68.42 - Body mass index [BMI] 45.0-49.9, adult (10) Hypertension: CODE(S): I10 - Essential (primary) hypertension QUALIFIERS: Hypertension type: primary hypertension Qualified Code(s): I10 - Essential (primary) hypertension PLAN: Plan Wash left leg with antibacterial soap and water pat dry apply Xeroform dressing to wound base with Adaptic over top gauze and absorbent dressing Double layer Tubigrip on the left leg and he can wear his regular compression stocking on the right. Patient is to continue all his medications and follow- up in 1 week
--- NOTE | 2024-12-31 12:30 | PCM.WC.PN ---
History of Present Illness Date of Service: 12/31/24 Chief Complaint: Left lower extremity ulcerations History of Wound: 54-year-old white male with obesity and multiple medical issues especially blood pressure and peripheral vascular disease and venous insufficiency. Developed spontaneous open areas on his left lower leg after hitting his coffee table and then neglecting to wear his compression stockings for just a few days while it was so hot causing severe edema. Present for approximately 1-2 weeks. He has previously suffered from ulcerations in his lower extremities, which occurred as a result of chronic venous insufficiency. Prior ulcerations have healed spontaneously. The patient had been using topical preparations such as chlorhexidine and Adaptic. He had been treated by his primary care physician with courses of oral Keflex because patient was worried he was getting cellulitis also, which have been completed. He experiences swelling in both lower extremities, which is said to be worse at the end of each day. His swelling has occurred for many years. He sleeps on a flat mattress at night. He is active, and seeks exercise by means of swimming. He denies a history of thrombophlebitis. 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. Recently, the patient's primary care physician does have him on lasix in an attempt to address issues related to lower extremity swelling. Since has been so long since he has had any studies done were going to go ahead and order leg studies for arterial and venous to see if he has blockages in his vein connectors. Progress of Wound: Patient is showing up to clinic for follow-up of right hallux nail avulsion. Stable with no sign of infection. Subjective Subjective Patient is a 54-year-old male presenting today follow-up evaluation of right great toe nail avulsion. Patient has been following his postoperative instructions and notes great improvement to the right toe. There is no concern for infection. There is no redness to the area. He is very grateful for his care. He denies any new onset of trauma. Denies constitutional symptoms. No other pedal complaints at this time. Objective Data Objective Data Vital Signs: Vital Signs Temp Pulse Resp BP O2 Del Method 97 F L 65 18 154/87 H Room Air 12/31/24 08:15 12/31/24 08:15 12/31/24 08:15 12/31/24 08:15 12/17/24 10:01 Oxygen Delivery Method Room Air Physical Exam Narrative Vascular: DP and PT pulse are palp to the right lower extremity. CFT is brisk. No erythema. Skin temperature is warm to warm from proximal ankle to distal digit bilateral. Neurological: Light touch is intact. Protective station is present. Dermatological: Evidence of status post total nail avulsion to the right hallux. Wound bed is granular with no sign of infection. No erythema or proximal streaking noted. Muscle skeletal:. No pain to palpation to the right hallux. No pain with calf pressure. Debridement Note Debridement Note Post-Debridement Measurements and Additional Note: Post-Debridement Measurements/Treatment - Nurse 1 - General Ulcer Assessment Start: 12/17/24 10:01 Freq: Status: Active Protocol: RACHEL Activity Type Activity Date Activity User E-sign Co-sign Detail Recorded Client Recorded Date Recorded By Document 12/17/24 10:01 MT [id number] 12/17/24 10:18 MT Document 12/24/24 09:05 DL [id number] 12/24/24 09:15 DL Document 12/31/24 08:15 RB [id number] 12/31/24 08:22 RB 12/17/24 12/24/24 12/31/24 10:01 09:05 08:15 - Today's Visit Information Type of service Initial Visit Follow-up Visit Follow-up Visit (Physician/CERTIFIED FIRST ASSISTANT (Physician/CERTIFIED FIRST ASSISTANT ) ) Arrival Mode Ambulatory Ambulatory Ambulatory Transfer Assistance None None Accompanied by self Patient Identification Verified (Name & Yes Yes Yes ) Patient Requires Transmission-Based No No Precautions Safety Precautions Fall Prevention Vital Signs Temperature (97.8 F-99.1 F) 97 F L 97 F L 97 F L Temperature Source Temporal Temporal Temporal Pulse Rate (60-100) 61 80 65 Pulse Location Monitor Monitor Monitor Respiratory Rate (12-18) 18 18 18 Respiratory rate source Observation Observation Monitor Oxygen Delivery Method Room Air Blood Pressure (90/60-120/80) 131/75 H 166/82 H 154/87 H Blood Pressure Mean (mm Hg) 93 110 109 Source Monitor Monitor Monitor Position Sitting Sitting Blood Pressure Location Right Arm Left Arm History Since Last Visit- (Skip if this is Patient's initial visit) Have you changed medications since your No No last visit? Any new allergies or adverse reactions No No Had a fall/change in ADL's that may No No increase risk of falls Signs or symptoms of abuse and/or No No neglect since last visit Have you been in the hospital since your No No last visit? Has dressing in place as prescribed Yes Yes Yes Has compression in place as prescribed Yes No Yes Has offloadiing in place as prescribed Yes N/A N/A Experienced any changes in pain level or Yes No No management Left Footwear Regular Shoe Regular Shoe Right Footwear Regular Shoe Regular Shoe Pain Scale: 0-10 Numeric Is Patient Pain Free? Yes Yes Yes WC - Nurse 1 - General Ulcer Measurement Start: 12/17/24 10:01 Freq: Status: Active Protocol: Activity Type Activity Date Activity User E-sign Co-sign Detail Recorded Client Recorded Date Recorded By Document 12/17/24 10:01 MT [id number] 12/17/24 10:18 MT Document 12/24/24 09:05 DL [id number] 12/24/24 09:15 DL Document 12/31/24 08:15 RB [id number] 12/31/24 08:22 RB 12/17/24 12/24/24 12/31/24 10:01 09:05 08:15 Wound Center Nurse 1 #4- R GREAT TOE -Combined with other wound No -Current Size (cm) - Length 0.1 -Current Size (cm) - Width 0.1 -Current Size (cm) - Depth 0.1 -Total Square Cm 0.01 -Photo Taken Yes -Tunneling No -Undermining/Tunneling No -Circular Undermining No -Exudate Amt Medium -Exudate Type Serosanguineous -Wound Margin Distinct, Outline Attached -Granulation Amt Large (67-100%) -Granulation Quality Edgar -Slough/Fibrin Yes -Necrosis Amt Small (1-33%) -Necrotic Tissue Type Adherent Slough -Structure Exposed N/A -Texture (Mahnaz-wound Skin Appearance) Assessed, Scarring -Moisture (Mahnaz-wound Skin Appearance) Assessed -Color (Mahnaz-wound Skin Appearance) Assessed -Temperature (Mahnaz-wound Skin No Abnormality Appearance) (Pt Warm) -Tenderness on Palpation (Mahnaz-wound No Skin Appearance) -Ulcer Cleansing Wound Cleanser -Foul Odor after Cleansing No #3 Left Lateral Lower Extremity cluster -Combined with other wound No -Current Size (cm) - Length 10 6.5 9.5 -Current Size (cm) - Width 11.5 10.3 4.3 -Current Size (cm) - Depth 0.1 0.1 0.1 -Total Square Cm 115.0 66.95 40.85 -Date of Last Picture (Recall this 12/17/24 field) -Photo Taken Yes Yes -Epithelialization Small 1-33% -Tunneling No No -Undermining/Tunneling No No -Circular Undermining No No -Exudate Amt Medium Medium Medium -Exudate Type Sanguineous Serosanguineous Serosanguineous -Wound Margin Flat & Intact Distinct, Distinct, Outline Outline Attached Attached -Granulation Amt Large (67-100%) Large (67-100%) Medium (34-66%) -Granulation Quality Pale,Edgar Red Edgar -Slough/Fibrin Yes -Necrosis Amt Small (1-33%) None Present (0 Medium (34-66%) %) -Necrotic Tissue Type Adherent Slough -Structure Exposed N/A N/A -Texture (Mahnaz-wound Skin Appearance) Assessed Scarring Assessed -Moisture (Mahnaz-wound Skin Appearance) Assessed, No Abnormality Assessed Maceration -Color (Mahnaz-wound Skin Appearance) Assessed, No Abnormality Assessed Hemosiderin Staining -Temperature (Mahnaz-wound Skin No Abnormality No Abnormality No Abnormality Appearance) (Pt Warm) (Pt Warm) (Pt Warm) -Tenderness on Palpation (Mahnaz-wound No No Skin Appearance) -Ulcer Cleansing Soap and Water Soap and Water Rinsed/ Irrigated with Saline -Foul Odor after Cleansing No No No -Anesthetic Used 5% Lidocaine 5% Lidocaine 5% Lidocaine Gel Gel Gel Right Calf (cm) 46.2 Right Ankle (cm) 26 Left Calf (cm) 47 47 Left Ankle (cm) 23 25.5 47.2 Left Foot (cm) 25.5 WC - Nurse 2 - General Ulcer CM Notes Start: 12/17/24 10:01 Freq: Status: Active Protocol: Activity Type Activity Date Activity User E-sign Co-sign Detail Recorded Client Recorded Date Recorded By Document 12/17/24 10:33 BMF [id number] 12/17/24 10:43 BMF Edit Result 12/17/24 10:33 BMF (1) [id number] 12/24/24 13:21 BMF Document 12/24/24 09:26 BMF [id number] 12/24/24 09:39 BMF Edit Result 12/24/24 09:26 BMF (2) [id number] 12/24/24 09:43 BMF Edit Result 12/24/24 09:26 BMF (3) [id number] 12/25/24 12:11 BMF Document 12/24/24 09:53 DS [id number] 12/24/24 10:02 DS Document 12/31/24 08:26 BMF [id number] 12/31/24 08:33 BMF Document 12/31/24 08:26 JF [id number] 12/31/24 08:27 JF (1) #3 Left Lateral Lower Extremity cluster - Debridement, SubQ, ea addt'l 20sq cm => 4 or part thereof (2) #4- R GREAT TOE - Time => 09:43 (3) #3 Left Lateral Lower Extremity cluster - Debridement, SubQ, ea addt'l 20sq cm => 3 or part thereof 12/17/24 12/24/24 08 10:33 09:26 09:53 Wound Center Nurse 2 #4- R GREAT TOE -Time 09:43 09:54 -Correct Patient Yes -Correct Side, Site, Position Yes -Correct Procedure Yes -Procedure Performed Yes -Type of Procedure Incision & Drainage -Post Debridement (cm) - Length -Post Debridement (cm) - Width -Post Debridement (cm) - Depth -Total Square (Post) (cm) -Area of Debridement (cm) - Length -Area of Debridement (cm) - Width -Total Square (Area) (cm) -Wound/Ulcer Outcome Not Healed -Ulcer Cleansing Rinsed/ Irrigated with Saline -Injectable Lidocaine w/ Epi (%) 2 -Bleeding Controlled with Pressure -Wound Comment(s) RIGHT GREAT TOENAIL REMOVED - [id number] #3 Left Lateral Lower Extremity cluster -Time 10:33 09:26 -Correct Patient Yes Yes -Correct Side, Site, Position Yes Yes -Correct Procedure Yes Yes -Procedure Performed Yes Yes -Type of Procedure Debridement Debridement -Clinical Debridement Subcutaneous Subcutaneous -Tissue Removed Subcutaneous Subcutaneous -Post Debridement (cm) - Length 9 7 -Post Debridement (cm) - Width 11.2 10.5 -Post Debridement (cm) - Depth 0.2 0.1 -Total Square (Post) (cm) 100.8 73.5 -Area of Debridement (cm) - Length 9 7 -Area of Debridement (cm) - Width 11.2 10.5 -Total Square (Area) (cm) 100.8 73.5 -Tunneling No No -Undermining/Tunneling No No -Circular Undermining No No -Wound/Ulcer Outcome Not Healed Not Healed -Ulcer Cleansing Rinsed/ Rinsed/ Irrigated with Irrigated with Saline Saline -Foul Odor after Cleansing No No -Bioengineered Tissue No No -Bleeding Controlled with Pressure Pressure -Treatment Response Procedure Procedure Tolerated Well Tolerated Well -Debridement - Subq, 1st 20sq cm Yes Yes -Debridement, SubQ, ea addt'l 20sq cm 4 3 or part thereof Pain Scale: 0-10 Numeric Is Patient Pain Free? Yes Yes Yes 12/31/24 12/31/24 08:26 08:26 Wound Center Nurse 2 #4- R GREAT TOE -Time -Correct Patient Yes -Correct Side, Site, Position No -Correct Procedure No -Procedure Performed No -Type of Procedure -Post Debridement (cm) - Length 0.1 -Post Debridement (cm) - Width 0.1 -Post Debridement (cm) - Depth 0.1 -Total Square (Post) (cm) 0.01 -Area of Debridement (cm) - Length 0.1 -Area of Debridement (cm) - Width 0.1 -Total Square (Area) (cm) 0.01 -Wound/Ulcer Outcome Not Healed -Ulcer Cleansing -Injectable Lidocaine w/ Epi (%) -Bleeding Controlled with -Wound Comment(s) #3 Left Lateral Lower Extremity cluster -Time 08:26 -Correct Patient Yes -Correct Side, Site, Position Yes -Correct Procedure Yes -Procedure Performed Yes -Type of Procedure Debridement -Clinical Debridement Subcutaneous -Tissue Removed Subcutaneous -Post Debridement (cm) - Length 7.5 -Post Debridement (cm) - Width 1 -Post Debridement (cm) - Depth 0.1 -Total Square (Post) (cm) 7.5 -Area of Debridement (cm) - Length 7.5 -Area of Debridement (cm) - Width 1 -Total Square (Area) (cm) 7.5 -Tunneling No -Undermining/Tunneling No -Circular Undermining No -Wound/Ulcer Outcome Not Healed -Ulcer Cleansing Rinsed/ Irrigated with Saline -Foul Odor after Cleansing No -Bioengineered Tissue No -Bleeding Controlled with Pressure -Treatment Response Procedure Tolerated Well -Debridement - Subq, 1st 20sq cm Yes -Debridement, SubQ, ea addt'l 20sq cm or part thereof Pain Scale: 0-10 Numeric Is Patient Pain Free? Yes Yes - Nurse 3 - General Ulcer D/C NN Start: 12/17/24 10:01 Freq: Status: Active Protocol: Activity Type Activity Date Activity User E-sign Co-sign Detail Recorded Client Recorded Date Recorded By Document 12/17/24 10:50 MT [id number] 12/17/24 10:54 NE Document 12/24/24 10:26 RB [id number] 12/24/24 10:28 RB Document 12/31/24 08:46 RB [id number] 12/31/24 08:47 RB 12/17/24 12/24/24 12/31/24 10:50 10:26 08:46 Wound Care Center Nurse 3 #4- R GREAT TOE -Ulcer Cleansing BETADINE Rinsed/ Irrigated with Saline -Primary Dressing Applied NonAdherent Contact Layer -Other Dressing bacitracin -Primary Dressing Covered/Secured with Dry Gauze,Other Dry Gauze, Secured with Tape -Other Covering COBAN #3 Left Lateral Lower Extremity cluster -Ulcer Cleansing Soap and Water Rinsed/ Irrigated with Saline -Foul Odor after Cleansing No -Negative Pressure Wound Therapy N/A -Other Dressing xeroform, abd XEROFORM xeroform -Primary Dressing Covered/Secured with Dry Gauze & Dry Gauze & Dry Gauze,Dry Roll Gauze Roll Gauze Gauze & Roll Gauze,Secured with Tape -Wound Comment(s) xeroform LLE -Tubular Bandage Double Layer Double Layer Double Layer -Size of Tubigrip Used Size F Size F Size F -Size F ($) 2 2 2 Treatment Response Procedure Procedure Tolerated Well Tolerated Well Pain Scale: 0-10 Numeric Is Patient Pain Free? Yes Yes Yes WC - Visit Discharge Discharge Condition Stable Stable Stable Ambulatory Status Ambulatory Ambulatory Ambulatory Transportation Private Auto Private Auto Private Auto Medication Reconcilliation completed & No No No provided to patient/care provider Clinical Summary of Care Provided Yes Yes Yes Notes: pt verbalizes understanding of new dressing Assessment/Plan Assessment/Plan (1) Ingrowing nail: CODE(S): L60.0 - Ingrowing nail PLAN: Patient was examined and evaluated. All findings were discussed with the patient. All questions were answered to the patient's satisfaction. After exam the patient is nailbed is stable with no sign of infection. He will continue to soak until day 10 and apply triple antibiotic and a sterile Band-Aid and change 1-2 times per day as needed. He is very grateful for his care and will follow-up in 1 week.
--- NOTE | 2024-12-31 13:18 | WC ---
PHOTO-LEFT LATERAL 12/31/24
--- NOTE | 2024-12-31 13:22 | WC ---
PHOTO-LEFT GREAT TOE 12/31/24
== END 2025-01-04 23:59 | disposition home or self-care (01) ==
LOC: WC 08:15
PROVIDERS: PCP Internal Medicine; Referring Provider Physician Assistant Medical; Visit Provider Nurse Practitioner
DX: I83.228 Varicose veins of left lower extremity with both ulcer of other part of lower extremity and inflammation (principal); L97.822 Non-pressure chronic ulcer of other part of left lower leg with fat layer exposed; E66.01 Morbid (severe) obesity due to excess calories; Z68.42 Body mass index [BMI] 45.0-49.9, adult; E11.51 Type 2 diabetes mellitus with diabetic peripheral angiopathy without gangrene; E11.59 Type 2 diabetes mellitus with other circulatory complications; R60.0 Localized edema; I87.2 Venous insufficiency (chronic) (peripheral); M79.674 Pain in right toe(s); M79.675 Pain in left toe(s); M79.89 Other specified soft tissue disorders; I83.11 Varicose veins of right lower extremity with inflammation; B87.1 Wound myiasis; L60.0 Ingrowing nail
CPT/HCPCS: 11042; 11045; 93923; 93970; 99213; 99214; G0463

== ENCOUNTER 2025-01-14 08:15 | Outpatient (RCR) | payer OTHER, SELFPAY ==
[2025-01-07 08:22] VITALS: BP 141/68; PULSE 60; RESP 18; TEMP 36.6
--- NOTE | 2025-01-07 09:57 | PN.PCM_ITS ---
History of Present Illness Date of Service: 01/07/25 Chief Complaint: Left lower extremity ulcerations History of Wound: 54-year-old white male with obesity and multiple medical issues especially blood pressure and peripheral vascular disease and venous insufficiency. Developed spontaneous open areas on his left lower leg after hitting his coffee table and then neglecting to wear his compression stockings for just a few days while it was so hot causing severe edema. Present for approximately 1-2 weeks. He has previously suffered from ulcerations in his lower extremities, which occurred as a result of chronic venous insufficiency. Prior ulcerations have healed spontaneously. The patient had been using topical preparations such as chlorhexidine and Adaptic. He had been treated by his primary care physician with courses of oral Keflex because patient was worried he was getting cellulit is also, which have been completed. He experiences swelling in both lower extremities, which is said to be worse at the end of each day. His swelling has occurred for many years. He sleeps on a flat mattress at night. He is active, and seeks exercise by means of swimming. He denies a history of thrombophlebitis. 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 Recently, the patient's primary care physician does have him on lasix in an attempt to address issues related to lower extremity swelling. Since has been so long since he has had any studies done were going to go ahead and order leg studies for arterial and venous to see if he has blockages in his vein connectors. Progress of Wound: Status post nail avulsion right hallux stable with no sign of infection. Subjective Subjective Patient is a 54-year-old male presenting to the wound care center today follow- up evaluation of nail avulsion to the right great toe and follow-up with nurse practitioner Dr. Vance for the full-thickness wound to the left lower extremity. Patient has been doing dressing changes to the right great toe as discussed. He admits great improvement. He has no redness or drainage or concern for infection. He denies any pain. Denies trauma. Denies constitutional symptoms. No other pedal complaints at this time. Objective Data Objective Data Vital Signs: Vital Signs Temp Pulse Resp BP 97.9 F 60 18 141/68 H 01/07/25 08:22 01/07/25 08:22 01/07/25 08:22 01/07/25 08:22 Physical Exam Narrative Vascular: DP and PT pulse are palp to the right lower extremity. CFT is brisk. No erythema. Skin temperature is warm to warm from proximal ankle to distal digit bilateral. Neurological: Light touch is intact. Protective station is present. Dermatological: Evidence of status post total nail avulsion to the right hallux. Wound bed is granular with no sign of infection. No erythema or proximal streaking noted. Muscle skeletal:. No pain to palpation to the right hallux. No pain with calf pressure. Debridement Note Debridement Note Post-Debridement Measurements and Additional Note: Post-Debridement Measurements/Treatment - Nurse 1 - General Ulcer Assessment Start: 01/07/25 08:22 Freq: Status: Active Protocol: RACHEL Activity Type Activity Date Activity User E-sign Co-sign Detail Recorded Client Recorded Date Recorded By Document 01/07/25 08:22 DL [id number] 01/07/25 08:27 DL 01/07/25 08:22 WC - Today's Visit Information Type of service Follow-up Visit (Physician/LITHOGRAPHIC ETCHER ) Arrival Mode Ambulatory Transfer Assistance None Patient Identification Verified (Name & Yes ) Patient Requires Transmission-Based No Precautions Vital Signs Temperature (97.8 F-99.1 F) 97.9 F Temperature Source Temporal Pulse Rate (60-100) 60 Pulse Location Monitor Respiratory Rate (12-18) 18 Respiratory rate source Observation Blood Pressure (90/60-120/80) 141/68 H Blood Pressure Mean (mm Hg) 92 Source Monitor History Since Last Visit- (Skip if this is Patient's initial visit) Have you changed medications since your No last visit? Any new allergies or adverse reactions No Had a fall/change in ADL's that may No increase risk of falls Signs or symptoms of abuse and/or No neglect since last visit Have you been in the hospital since your Yes last visit? Has dressing in place as prescribed Yes Has compression in place as prescribed Yes Experienced any changes in pain level or No management Pain Scale: 0-10 Numeric Is Patient Pain Free? Yes - Nurse 1 - General Ulcer Measurement Start: 01/07/25 08:22 Freq: Status: Active Protocol: Activity Type Activity Date Activity User E-sign Co-sign Detail Recorded Client Recorded Date Recorded By Document 01/07/25 08:22 DL [id number] 01/07/25 08:27 DL 01/07/25 08:22 Wound Center Nurse 1 #4- R GREAT TOE -Current Size (cm) - Length 0.5 -Current Size (cm) - Width 0.4 -Current Size (cm) - Depth 0.1 -Total Square Cm 0.20 -Photo Taken Yes -Exudate Amt None Present -Wound Margin Distinct, Outline Attached -Granulation Amt Small (1-33%) -Granulation Quality [place] -Necrosis Amt None Present (0 %) -Structure Exposed N/A -Texture (Mahnaz-wound Skin Appearance) Scarring -Moisture (Mahnaz-wound Skin Appearance) No Abnormality -Color (Mahnaz-wound Skin Appearance) No Abnormality -Temperature (Mahnaz-wound Skin No Abnormality Appearance) (Pt Warm) -Tenderness on Palpation (Mahnaz-wound No Skin Appearance) -Ulcer Cleansing Rinsed/ Irrigated with Saline -Foul Odor after Cleansing No -Anesthetic Used 5% Lidocaine Gel #3 Left Lateral Lower Extremity cluster -Current Size (cm) - Length 10.2 -Current Size (cm) - Width 8 -Current Size (cm) - Depth 0.1 -Total Square Cm 81.6 -Photo Taken Yes -Exudate Amt Small -Exudate Type Serosanguineous -Wound Margin Distinct, Outline Attached -Granulation Amt Large (67-100%) -Granulation Quality [place] -Necrosis Amt None Present (0 %) -Structure Exposed N/A -Texture (Mahnaz-wound Skin Appearance) Scarring -Moisture (Mahnaz-wound Skin Appearance) No Abnormality -Color (Mahnaz-wound Skin Appearance) No Abnormality -Temperature (Mahnaz-wound Skin No Abnormality Appearance) (Pt Warm) -Tenderness on Palpation (Mahnaz-wound No Skin Appearance) -Ulcer Cleansing Rinsed/ Irrigated with Saline -Anesthetic Used 5% Lidocaine Gel Left Calf (cm) 46.2 Left Ankle (cm) 25.4 - Nurse 2 - General Ulcer CM Notes Start: 01/07/25 08:22 Freq: Status: Active Protocol: Activity Type Activity Date Activity User E-sign Co-sign Detail Recorded Client Recorded Date Recorded By Document 01/07/25 08:36 [facility] [id number] 01/07/25 08:40 [facility] Document 01/07/25 08:47 JIGAR [id number] 01/07/25 08:48 JIGAR 01/07/25 01/07/25 08:36 08:47 Wound Center Nurse 2 #4- R GREAT TOE -Correct Patient Yes -Correct Side, Site, Position No -Correct Procedure No -Procedure Performed No -Post Debridement (cm) - Length 0 -Post Debridement (cm) - Width 0 -Post Debridement (cm) - Depth 0 -Total Square (Post) (cm) 0 -Area of Debridement (cm) - Length 0 -Area of Debridement (cm) - Width 0 -Total Square (Area) (cm) 0 -Wound/Ulcer Outcome Healed- Epithelialized #3 Left Lateral Lower Extremity cluster -Time 08:37 -Correct Patient Yes -Correct Side, Site, Position Yes -Correct Procedure Yes -Procedure Performed Yes -Type of Procedure Debridement -Clinical Debridement Subcutaneous -Tissue Removed Subcutaneous -Post Debridement (cm) - Length 5.8 -Post Debridement (cm) - Width 6.1 -Post Debridement (cm) - Depth 0.1 -Total Square (Post) (cm) 35.38 -Area of Debridement (cm) - Length 5.8 -Area of Debridement (cm) - Width 6.1 -Total Square (Area) (cm) 35.38 -Tunneling No -Undermining/Tunneling No -Circular Undermining No -Wound/Ulcer Outcome Not Healed -Ulcer Cleansing Rinsed/ Irrigated with Saline -Foul Odor after Cleansing No -Bioengineered Tissue No -Bleeding Controlled with Pressure -Treatment Response Procedure Tolerated Well -Debridement - Subq, 1st 20sq cm Yes -Debridement, SubQ, ea addt'l 20sq cm 1 or part thereof Pain Scale: 0-10 Numeric Is Patient Pain Free? Yes Yes WC - Nurse 3 - General Ulcer D/C NN Start: 01/07/25 08:22 Freq: Status: Active Protocol: Activity Type Activity Date Activity User E-sign Co-sign Detail Recorded Client Recorded Date Recorded By Document 01/07/25 09:02 SANJUANA [id number] 01/07/25 09:05 DL 01/07/25 09:02 Wound Care Center Nurse 3 #4- R GREAT TOE -Ulcer Cleansing Rinsed/ Irrigated with Saline -Foul Odor after Cleansing No -Other Dressing Betadine -Primary Dressing Covered/Secured with Dry Gauze, Secured with Tape #3 Left Lateral Lower Extremity cluster -Ulcer Cleansing Rinsed/ Irrigated with Saline -Foul Odor after Cleansing No -Other Dressing xerofrom -Primary Dressing Covered/Secured with Dry Gauze & Roll Gauze, Secured with Tape LLE -Tubular Bandage Double Layer -Size of Tubigrip Used Size E -Size E ($) 2 Treatment Response Procedure Tolerated Well Pain Scale: 0-10 Numeric Is Patient Pain Free? Yes WC - Visit Discharge Discharge Condition Stable Ambulatory Status Ambulatory Transportation Private Auto Assessment/Plan Assessment/Plan (1) Ingrowing nail: CODE(S): L60.0 - Ingrowing nail PLAN: Patient was examined and evaluated. All findings were discussed with the patient. All questions were answered to the patient satisfaction. After exam the patient shows great improvement after his nail avulsion with no concern for infection. There is some mild maceration to the medial side of the nailbed and educated patient to apply Betadine paint sterile Band-Aid daily. He was told to do this for the next 1 to 2 weeks until follow-up. Patient was educated on signs symptoms of infection. No restrictions with showering or ambulation at this time. Follow-up with patient in 1 week..
--- NOTE | 2025-01-07 12:30 | PN.PCM_ITS ---
History of Present Illness Date of Service: 01/07/25 Chief Complaint: Left lower extremity ulcerations History of Wound: 54-year-old white male with obesity and multiple medical issues especially blood pressure and peripheral vascular disease and venous insufficiency. Developed spontaneous open areas on his left lower leg after hitting his coffee table and then neglecting to wear his compression stockings for just a few days while it was so hot causing severe edema. Present for approximately 1-2 weeks. He has previously suffered from ulcerations in his lower extremities, which occurred as a result of chronic venous insufficiency. Prior ulcerations have healed spontaneously. The patient had been using topical preparations such as chlorhexidine and Adaptic. He had been treated by his primary care physician with courses of oral Keflex because patient was worried he was getting cellulit is also, which have been completed. He experiences swelling in both lower extremities, which is said to be worse at the end of each day. His swelling has occurred for many years. He sleeps on a flat mattress at night. He is active, and seeks exercise by means of swimming. He denies a history of thrombophlebitis. 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 Recently, the patient's primary care physician does have him on lasix in an attempt to address issues related to lower extremity swelling. Since has been so long since he has had any studies done were going to go ahead and order leg studies for arterial and venous to see if he has blockages in his vein connectors. Progress of Wound: Status post nail avulsion right hallux stable with no sign of infection. The left lower leg ulcer is much improved it is very flat and filled in nicely almost healed still partially circumferential. Subjective Subjective Patient is very pleased and has been very compliant with his care Objective Data Objective Data No sign of infection healing nicely we will continue with the same dressings and follow-up in a week He also has an appoint with Dr. Duvall coming up he is trying to work it around his school schedule. Vital Signs: Vital Signs Temp Pulse Resp BP 97.9 F 60 18 141/68 H 01/07/25 08:22 01/07/25 08:22 01/07/25 08:22 01/07/25 08:22 Physical Exam Const oriented x3 General Appearance: cooperative Exam Limitations: no limitations HEENT normocephalic Head and Scalp: normal to inspection Face and Sinus: normal facial exam Nose: external nose normal General Ear: hearing grossly impaired External Ear: external ears normal Eyes General Eye: normal appearance of both eyes Neck General: normal visual inspection Resp normal respiratory effort Effort and Inspection: able to speak in complete sentences Cardio regular rate and regular rhythm Palpation: normal PMI Rate: regular rate Rhythm: regular rhythm GI Inspection: pannus present Palpation: soft and no hepatosplenomegaly external exam normal Back/Spine Cervical Spine: cervical ROM normal Thoracic Spine / Upper Back: normal to inspection Lumbar Spine / Lower Back: normal to inspection Extremity General Extremity: normal exam except as noted and other findings Other Details: Swelling and open sores on the left leg and edema and redness Skin Skin Narrative: Ulcers on the left leg some have slough and fibrin in them little bit of depth down to the fat tissue without necrosis Neuro oriented x3 Psych Appearance: grossly normal Speech: normal speech Thought Content: normal thought content Judgement: judgement good Debridement Note Debridement Note Wound debrided: Left lateral lower leg partial circumferential wound traumatic Type of Debridement: Excisional debridement Anesthesia Used: 5% Lidocaine Gel Depth: Down to and including healthy tissue Percentage of wound debrided: 100 Instrument Used: 5mm curette Tissue Removed: Fibrin and some devitalized Severity: Limited To Skin Breakdown Amount of bleeding with debridement: Mild Bleeding Controlled with: Compression and gauze Patient tolerated procedure: Patient tolerated procedure well Post-Debridement Measurements and Additional Note: Post-Debridement Measurements/Treatment - Nurse 1 - General Ulcer Assessment Start: 01/07/25 08:22 Freq: Status: Active Protocol: [email or web address] Activity Type Activity Date Activity User E-sign Co-sign Detail Recorded Client Recorded Date Recorded By Document 01/07/25 08:22 SANJUANA [id number] 01/07/25 08:27 DL 01/07/25 08:22 - Today's Visit Information Type of service Follow-up Visit (Physician/STITCHER TAPE CONTROLLED MACHINE ) Arrival Mode Ambulatory Transfer Assistance None Patient Identification Verified (Name & Yes ) Patient Requires Transmission-Based No Precautions Vital Signs Temperature (97.8 F-99.1 F) 97.9 F Temperature Source Temporal Pulse Rate (60-100) 60 Pulse Location Monitor Respiratory Rate (12-18) 18 Respiratory rate source Observation Blood Pressure (90/60-120/80) 141/68 H Blood Pressure Mean (mm Hg) 92 Source Monitor History Since Last Visit- (Skip if this is Patient's initial visit) Have you changed medications since your No last visit? Any new allergies or adverse reactions No Had a fall/change in ADL's that may No increase risk of falls Signs or symptoms of abuse and/or No neglect since last visit Have you been in the hospital since your Yes last visit? Has dressing in place as prescribed Yes Has compression in place as prescribed Yes Experienced any changes in pain level or No management Pain Scale: 0-10 Numeric Is Patient Pain Free? Yes WC - Nurse 1 - General Ulcer Measurement Start: 01/07/25 08:22 Freq: Status: Active Protocol: Activity Type Activity Date Activity User E-sign Co-sign Detail Recorded Client Recorded Date Recorded By Document 01/07/25 08:22 DL [id number] 01/07/25 08:27 DL 01/07/25 08:22 Wound Center Nurse 1 #4- R GREAT TOE -Current Size (cm) - Length 0.5 -Current Size (cm) - Width 0.4 -Current Size (cm) - Depth 0.1 -Total Square Cm 0.20 -Photo Taken Yes -Exudate Amt None Present -Wound Margin Distinct, Outline Attached -Granulation Amt Small (1-33%) -Granulation Quality [place] -Necrosis Amt None Present (0 %) -Structure Exposed N/A -Texture (Mahnaz-wound Skin Appearance) Scarring -Moisture (Mahnaz-wound Skin Appearance) No Abnormality -Color (Mahnaz-wound Skin Appearance) No Abnormality -Temperature (Mahnaz-wound Skin No Abnormality Appearance) (Pt Warm) -Tenderness on Palpation (Mahnaz-wound No Skin Appearance) -Ulcer Cleansing Rinsed/ Irrigated with Saline -Foul Odor after Cleansing No -Anesthetic Used 5% Lidocaine Gel #3 Left Lateral Lower Extremity cluster -Current Size (cm) - Length 10.2 -Current Size (cm) - Width 8 -Current Size (cm) - Depth 0.1 -Total Square Cm 81.6 -Photo Taken Yes -Exudate Amt Small -Exudate Type Serosanguineous -Wound Margin Distinct, Outline Attached -Granulation Amt Large (67-100%) -Granulation Quality [place] -Necrosis Amt None Present (0 %) -Structure Exposed N/A -Texture (Mahnaz-wound Skin Appearance) Scarring -Moisture (Mahnaz-wound Skin Appearance) No Abnormality -Color (Mahnaz-wound Skin Appearance) No Abnormality -Temperature (Mahnaz-wound Skin No Abnormality Appearance) (Pt Warm) -Tenderness on Palpation (Mahnaz-wound No Skin Appearance) -Ulcer Cleansing Rinsed/ Irrigated with Saline -Anesthetic Used 5% Lidocaine Gel Left Calf (cm) 46.2 Left Ankle (cm) 25.4 WC - Nurse 2 - General Ulcer CM Notes Start: 01/07/25 08:22 Freq: Status: Active Protocol: Activity Type Activity Date Activity User E-sign Co-sign Detail Recorded Client Recorded Date Recorded By Document 01/07/25 08:36 BM [id number] 01/07/25 08:40 BM Document 01/07/25 08:47 [id number] 01/07/25 08:48 JF 01/07/25 01/07/25 08:36 08:47 Wound Center Nurse 2 #4- R GREAT TOE -Correct Patient Yes -Correct Side, Site, Position No -Correct Procedure No -Procedure Performed No -Post Debridement (cm) - Length 0 -Post Debridement (cm) - Width 0 -Post Debridement (cm) - Depth 0 -Total Square (Post) (cm) 0 -Area of Debridement (cm) - Length 0 -Area of Debridement (cm) - Width 0 -Total Square (Area) (cm) 0 -Wound/Ulcer Outcome Healed- Epithelialized #3 Left Lateral Lower Extremity cluster -Time 08:37 -Correct Patient Yes -Correct Side, Site, Position Yes -Correct Procedure Yes -Procedure Performed Yes -Type of Procedure Debridement -Clinical Debridement Subcutaneous -Tissue Removed Subcutaneous -Post Debridement (cm) - Length 5.8 -Post Debridement (cm) - Width 6.1 -Post Debridement (cm) - Depth 0.1 -Total Square (Post) (cm) 35.38 -Area of Debridement (cm) - Length 5.8 -Area of Debridement (cm) - Width 6.1 -Total Square (Area) (cm) 35.38 -Tunneling No -Undermining/Tunneling No -Circular Undermining No -Wound/Ulcer Outcome Not Healed -Ulcer Cleansing Rinsed/ Irrigated with Saline -Foul Odor after Cleansing No -Bioengineered Tissue No -Bleeding Controlled with Pressure -Treatment Response Procedure Tolerated Well -Debridement - Subq, 1st 20sq cm Yes -Debridement, SubQ, ea addt'l 20sq cm 1 or part thereof Pain Scale: 0-10 Numeric Is Patient Pain Free? Yes Yes WC - Nurse 3 - General Ulcer D/C NN Start: 01/07/25 08:22 Freq: Status: Active Protocol: Activity Type Activity Date Activity User E-sign Co-sign Detail Recorded Client Recorded Date Recorded By Document 01/07/25 09:02 SANJUANA [id number] 01/07/25 09:05 SANJUANA 01/07/25 09:02 Wound Care Center Nurse 3 #4- R GREAT TOE -Ulcer Cleansing Rinsed/ Irrigated with Saline -Foul Odor after Cleansing No -Other Dressing Betadine -Primary Dressing Covered/Secured with Dry Gauze, Secured with Tape #3 Left Lateral Lower Extremity cluster -Ulcer Cleansing Rinsed/ Irrigated with Saline -Foul Odor after Cleansing No -Other Dressing xerofrom -Primary Dressing Covered/Secured with Dry Gauze & Roll Gauze, Secured with Tape LLE -Tubular Bandage Double Layer -Size of Tubigrip Used Size E -Size E ($) 2 Treatment Response Procedure Tolerated Well Pain Scale: 0-10 Numeric Is Patient Pain Free? Yes WC - Visit Discharge Discharge Condition Stable Ambulatory Status Ambulatory Transportation Private Auto Assessment/Plan Assessment/Plan (1) Leg ulcer, left: CODE(S): L97.929 - Non-pressure chronic ulcer of unspecified part of left lower leg with unspecified severity QUALIFIERS: Non-pressure ulcer stage: limited to breakdown of skin Qualified Code(s): L97.921 - Non-pressure chronic ulcer of unspecified part of left lower leg limited to breakdown of skin (2) Chronic venous hypertension w/ulcer and inflammation involv left side: CODE(S): I87.332 - Chronic venous hypertension (idiopathic) with ulcer and inflammation of left lower extremity; L97.929 - Non-pressure chronic ulcer of unspecified part of left lower leg with unspecified severity (3) Venous ulcer of left leg: CODE(S): I83.029 - Varicose veins of left lower extremity with ulcer of unspecified site; L97.929 - Non-pressure chronic ulcer of unspecified part of left lower leg with unspecified severity (4) Chronic venous insufficiency of lower extremity: CODE(S): I87.2 - Venous insufficiency (chronic) (peripheral) (5) Left leg swelling: CODE(S): M79.89 - Other specified soft tissue disorders (6) Right leg swelling: CODE(S): M79.89 - Other specified soft tissue disorders (7) Hyperpigmentation: CODE(S): L81.9 - Disorder of pigmentation, unspecified (8) Lipodermatosclerosis of both lower extremities: CODE(S): I83.11 - Varicose veins of right lower extremity with inflammation; I83.12 - Varicose veins of left lower extremity with inflammation (9) Morbid obesity with BMI of 45.0-49.9, adult: CODE(S): E66.01 - Morbid (severe) obesity due to excess calories; Z68.42 - Body mass index [BMI] 45.0-49.9, adult (10) Hypertension: CODE(S): I10 - Essential (primary) hypertension QUALIFIERS: Hypertension type: primary hypertension Qualified Code(s): I10 - Essential (primary) hypertension PLAN: Plan Wash left leg with antibacterial soap and water pat dry apply Xeroform dressing to wound base with Adaptic over top gauze and absorbent dressing Double layer Tubigrip on the left leg and he can wear his regular compression stocking on the right. Patient is to continue all his medications and follow- up in 1 week
--- NOTE | 2025-01-08 10:09 | WC ---
PHOTO- RIGHT GREAT TOE 01/07/25
--- NOTE | 2025-01-08 10:12 | WC ---
PHOTO- LEFT LAT LE 01/07/25
[2025-01-14 08:22] VITALS: BP 142/72; PULSE 58; RESP 18; TEMP 35.6
--- NOTE | 2025-01-14 10:16 | PN.PCM_ITS ---
History of Present Illness Date of Service: 01/14/25 Chief Complaint: Left lower extremity ulcerations History of Wound: 54-year-old white male with obesity and multiple medical issues especially blood pressure and peripheral vascular disease and venous insufficiency. Developed spontaneous open areas on his left lower leg after hitting his coffee table and then neglecting to wear his compression stockings for just a few days while it was so hot causing severe edema. Present for approximately 1-2 weeks. He has previously suffered from ulcerations in his lower extremities, which occurred as a result of chronic venous insufficiency. Prior ulcerations have healed spontaneously. The patient had been using topical preparations such as chlorhexidine and Adaptic. He had been treated by his primary care physician with courses of oral Keflex because patient was worried he was getting cellulit is also, which have been completed. He experiences swelling in both lower extremities, which is said to be worse at the end of each day. His swelling has occurred for many years. He sleeps on a flat mattress at night. He is active, and seeks exercise by means of swimming. He denies a history of thrombophlebitis. 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 Recently, the patient's primary care physician does have him on lasix in an attempt to address issues related to lower extremity swelling. Since has been so long since he has had any studies done were going to go ahead and order leg studies for arterial and venous to see if he has blockages in his vein connectors. Progress of Wound: Status post nail avulsion right hallux stable and healed. The left lower leg ulcer is healed. He is starting to develop more blisters I told him that it is going to be a ongoing problem until he makes the appointment with Dr. Duvall's office. And he needs to wear his compression stockings all the time because he is on his feet all day. 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 Subjective Subjective Patient was agreeable he has all the products needed in case the blisters open but they are all closed. Objective Data Objective Data Leg wound healed does have small blisters developing but all he needs wears compression he has all the products he can follow-up as needed he can be discharged from the wound center. Vital Signs: Vital Signs Temp Pulse Resp BP O2 Del Method 96.1 F L 58 L 18 142/72 H Room Air 01/14/25 08:22 01/14/25 08:22 01/14/25 08:22 01/14/25 08:22 01/14/25 08:22 Oxygen Delivery Method Room Air Physical Exam Const oriented x3 General Appearance: cooperative Exam Limitations: no limitations HEENT normocephalic Head and Scalp: normal to inspection Face and Sinus: normal facial exam Nose: external nose normal General Ear: hearing grossly impaired External Ear: external ears normal Eyes General Eye: normal appearance of both eyes Neck General: normal visual inspection Resp normal respiratory effort Effort and Inspection: able to speak in complete sentences Cardio regular rate and regular rhythm Palpation: normal PMI Rate: regular rate Rhythm: regular rhythm GI Inspection: pannus present Palpation: soft and no hepatosplenomegaly external exam normal Back/Spine Cervical Spine: cervical ROM normal Thoracic Spine / Upper Back: normal to inspection Lumbar Spine / Lower Back: normal to inspection Extremity General Extremity: normal exam except as noted and other findings Other Details: Swelling and open sores on the left leg and edema and redness Skin Skin Narrative: Ulcers on the left leg some have slough and fibrin in them little bit of depth down to the fat tissue without necrosis Neuro oriented x3 Psych Appearance: grossly normal Speech: normal speech Thought Content: normal thought content Judgement: judgement good Debridement Note Debridement Note No debridement was completed: No debridement was completed today Post-Debridement Measurements and Additional Note: Post-Debridement Measurements/Treatment - Nurse 1 - General Ulcer Assessment Start: 01/07/25 08:22 Freq: Status: Active Protocol: WC.LOWFYAT Activity Type Activity Date Activity User E-sign Co-sign Detail Recorded Client Recorded Date Recorded By Document 01/07/25 08:22 DL [id number] 01/07/25 08:27 DL Document 01/14/25 08:22 DS [id number] 01/14/25 08:35 DS 01/07/25 01/14/25 08:22 08:22 - Today's Visit Information Type of service Follow-up Visit Follow-up Visit (Physician/CAMPAIGN MARKETING SPECIALIST (Physician/CAMPAIGN MARKETING SPECIALIST ) ) Arrival Mode Ambulatory Ambulatory Transfer Assistance None Patient Identification Verified (Name & Yes Yes ) Patient Requires Transmission-Based No No Precautions Safety Precautions Fall Prevention Vital Signs Temperature (97.8 F-99.1 F) 97.9 F 96.1 F L Temperature Source Temporal Temporal Pulse Rate (60-100) 60 58 L Pulse Location Monitor Monitor Respiratory Rate (12-18) 18 18 Respiratory rate source Observation Observation Oxygen Delivery Method Room Air Blood Pressure (90/60-120/80) 141/68 H 142/72 H Blood Pressure Mean (mm Hg) 92 95 Source Monitor Monitor Position Sitting Blood Pressure Location Left Arm History Since Last Visit- (Skip if this is Patient's initial visit) Have you changed medications since your No No last visit? Any new allergies or adverse reactions No No Had a fall/change in ADL's that may No No increase risk of falls Signs or symptoms of abuse and/or No No neglect since last visit Have you been in the hospital since your Yes No last visit? Has dressing in place as prescribed Yes Yes Has compression in place as prescribed Yes Yes Has offloadiing in place as prescribed N/A Experienced any changes in pain level or No No management Left Footwear Regular Shoe Right Footwear Regular Shoe Pain Scale: 0-10 Numeric Is Patient Pain Free? Yes Yes WC - Nurse 1 - General Ulcer Measurement Start: 01/07/25 08:22 Freq: Status: Active Protocol: Activity Type Activity Date Activity User E-sign Co-sign Detail Recorded Client Recorded Date Recorded By Document 01/07/25 08:22 DL [id number] 01/07/25 08:27 DL Document 01/14/25 08:22 DS [id number] 01/14/25 08:35 DS Edit Result 01/14/25 08:22 DS (1) [id number] 01/14/25 08:37 DS (1) Lower Limb Edema Present => No Left Calf (cm) => 46.7 Left Ankle (cm) => 25.7 01/07/25 01/14/25 08:22 08:22 Wound Center Nurse 1 #4- R GREAT TOE -Current Size (cm) - Length 0.5 -Current Size (cm) - Width 0.4 -Current Size (cm) - Depth 0.1 -Total Square Cm 0.20 -Photo Taken Yes -Exudate Amt None Present -Wound Margin Distinct, Outline Attached -Granulation Amt Small (1-33%) -Granulation Quality [place] -Necrosis Amt None Present (0 %) -Structure Exposed N/A -Texture (Mahnaz-wound Skin Appearance) Scarring -Moisture (Mahnaz-wound Skin Appearance) No Abnormality -Color (Mahnaz-wound Skin Appearance) No Abnormality -Temperature (Mahnaz-wound Skin No Abnormality Appearance) (Pt Warm) -Tenderness on Palpation (Mahnaz-wound No Skin Appearance) -Ulcer Cleansing Rinsed/ Irrigated with Saline -Foul Odor after Cleansing No -Anesthetic Used 5% Lidocaine Gel #5 LEFT LAT LEG SUP CLUSTER -Current Size (cm) - Length 7.1 -Current Size (cm) - Width 8.5 -Current Size (cm) - Depth 0.1 -Total Square Cm 60.35 -Date of Last Picture (Recall this 01/14/25 field) -Photo Taken Yes -Tunneling No -Undermining/Tunneling No -Circular Undermining No -Wound Margin Distinct, Outline Attached -Texture (Mahnaz-wound Skin Appearance) Assessed -Moisture (Mahnaz-wound Skin Appearance) Assessed -Color (Mahnaz-wound Skin Appearance) Assessed -Temperature (Mahnaz-wound Skin No Abnormality Appearance) (Pt Warm) -Tenderness on Palpation (Mahnaz-wound No Skin Appearance) -Ulcer Cleansing Soap and Water -Foul Odor after Cleansing No -Anesthetic Used 5% Lidocaine Gel #3 Left Lateral Lower Extremity cluster -Current Size (cm) - Length 10.2 0.1 -Current Size (cm) - Width 8 0.1 -Current Size (cm) - Depth 0.1 0.1 -Total Square Cm 81.6 0.01 -Photo Taken Yes No -Tunneling No -Undermining/Tunneling No -Circular Undermining No -Exudate Amt Small -Exudate Type Serosanguineous -Wound Margin Distinct, Distinct, Outline Outline Attached Attached -Granulation Amt Large (67-100%) -Granulation Quality [place] -Necrosis Amt None Present (0 %) -Structure Exposed N/A -Texture (Mahnaz-wound Skin Appearance) Scarring Assessed -Moisture (Mahnaz-wound Skin Appearance) No Abnormality Assessed -Color (Mahnaz-wound Skin Appearance) No Abnormality Assessed -Temperature (Mahnaz-wound Skin No Abnormality No Abnormality Appearance) (Pt Warm) (Pt Warm) -Tenderness on Palpation (Mahnaz-wound No Skin Appearance) -Ulcer Cleansing Rinsed/ Soap and Water Irrigated with Saline -Foul Odor after Cleansing No -Anesthetic Used 5% Lidocaine 5% Lidocaine Gel Gel Lower Limb Edema Present No Left Calf (cm) 46.2 46.7 Left Ankle (cm) 25.4 25.7 WC - Nurse 2 - General Ulcer CM Notes Start: 01/07/25 08:22 Freq: Status: Active Protocol: Activity Type Activity Date Activity User E-sign Co-sign Detail Recorded Client Recorded Date Recorded By Document 01/07/25 08:36 BM [id number] 01/07/25 08:40 BMF Document 01/07/25 08:47 JF [id number] 01/07/25 08:48 JF Document 01/14/25 08:42 BM [id number] 01/14/25 08:45 BMF 01/07/25 01/07/25 01/14/25 08:36 08:47 08:42 Wound Center Nurse 2 #4- R GREAT TOE -Correct Patient Yes -Correct Side, Site, Position No -Correct Procedure No -Procedure Performed No -Post Debridement (cm) - Length 0 -Post Debridement (cm) - Width 0 -Post Debridement (cm) - Depth 0 -Total Square (Post) (cm) 0 -Area of Debridement (cm) - Length 0 -Area of Debridement (cm) - Width 0 -Total Square (Area) (cm) 0 -Wound/Ulcer Outcome Healed- Epithelialized #5 LEFT LAT LEG SUP CLUSTER -Time 08:43 -Procedure Performed No -Post Debridement (cm) - Length 0 -Post Debridement (cm) - Width 0 -Post Debridement (cm) - Depth 0 -Total Square (Post) (cm) 0 -Area of Debridement (cm) - Length 0 -Area of Debridement (cm) - Width 0 -Total Square (Area) (cm) 0 -Wound/Ulcer Outcome Healed- Epithelialized -Bleeding Controlled with NA #3 Left Lateral Lower Extremity cluster -Time 08:37 08:43 -Correct Patient Yes -Correct Side, Site, Position Yes -Correct Procedure Yes -Procedure Performed Yes No -Type of Procedure Debridement -Clinical Debridement Subcutaneous -Tissue Removed Subcutaneous -Post Debridement (cm) - Length 5.8 0 -Post Debridement (cm) - Width 6.1 0 -Post Debridement (cm) - Depth 0.1 0 -Total Square (Post) (cm) 35.38 0 -Area of Debridement (cm) - Length 5.8 0 -Area of Debridement (cm) - Width 6.1 0 -Total Square (Area) (cm) 35.38 0 -Tunneling No -Undermining/Tunneling No -Circular Undermining No -Wound/Ulcer Outcome Not Healed Not Healed -Ulcer Cleansing Rinsed/ Irrigated with Saline -Foul Odor after Cleansing No -Bioengineered Tissue No -Bleeding Controlled with Pressure NA -Treatment Response Procedure Tolerated Well -Debridement - Subq, 1st 20sq cm Yes -Debridement, SubQ, ea addt'l 20sq cm 1 or part thereof Pain Scale: 0-10 Numeric Is Patient Pain Free? Yes Yes Yes WC - Nurse 3 - General Ulcer D/C NN Start: 01/07/25 08:22 Freq: Status: Active Protocol: Activity Type Activity Date Activity User E-sign Co-sign Detail Recorded Client Recorded Date Recorded By Document 01/07/25 09:02 DL [id number] 01/07/25 09:05 DL Document 01/14/25 09:01 RB [id number] 01/14/25 09:02 RB 01/07/25 01/14/25 09:02 09:01 Wound Care Center Nurse 3 #4- R GREAT TOE -Ulcer Cleansing Rinsed/ Irrigated with Saline -Foul Odor after Cleansing No -Other Dressing Betadine -Primary Dressing Covered/Secured with Dry Gauze, Secured with Tape #5 LEFT LAT LEG SUP CLUSTER -Ulcer Cleansing Rinsed/ Irrigated with Saline -Other Dressing XEROFORM -Primary Dressing Covered/Secured with Dry Gauze,Dry Gauze & Roll Gauze,Secured with Tape #3 Left Lateral Lower Extremity cluster -Ulcer Cleansing Rinsed/ Irrigated with Saline -Foul Odor after Cleansing No -Other Dressing xerofrom XEROFORM -Primary Dressing Covered/Secured with Dry Gauze & Dry Gauze,Dry Roll Gauze, Gauze & Roll Secured with Gauze,Secured Tape with Tape LLE -Tubular Bandage Double Layer Double Layer -Size of Tubigrip Used Size E Size F -Size E ($) 2 -Size F ($) 2 Treatment Response Procedure Procedure Tolerated Well Tolerated Well Pain Scale: 0-10 Numeric Is Patient Pain Free? Yes Yes - Visit Discharge Discharge Condition Stable Stable Ambulatory Status Ambulatory Ambulatory Transportation Private Auto Private Auto Medication Reconcilliation completed & No provided to patient/care provider Clinical Summary of Care Provided Yes Assessment/Plan Assessment/Plan (1) Leg ulcer, left: CODE(S): L97.929 - Non-pressure chronic ulcer of unspecified part of left lower leg with unspecified severity QUALIFIERS: Non-pressure ulcer stage: limited to breakdown of skin Qualified Code(s): L97.921 - Non-pressure chronic ulcer of unspecified part of left lower leg limited to breakdown of skin (2) Chronic venous hypertension w/ulcer and inflammation involv left side: CODE(S): I87.332 - Chronic venous hypertension (idiopathic) with ulcer and inflammation of left lower extremity; L97.929 - Non-pressure chronic ulcer of unspecified part of left lower leg with unspecified severity (3) Venous ulcer of left leg: CODE(S): I83.029 - Varicose veins of left lower extremity with ulcer of unspecified site; L97.929 - Non-pressure chronic ulcer of unspecified part of left lower leg with unspecified severity (4) Chronic venous insufficiency of lower extremity: CODE(S): I87.2 - Venous insufficiency (chronic) (peripheral) (5) Left leg swelling: CODE(S): M79.89 - Other specified soft tissue disorders (6) Right leg swelling: CODE(S): M79.89 - Other specified soft tissue disorders (7) Hyperpigmentation: CODE(S): L81.9 - Disorder of pigmentation, unspecified (8) Lipodermatosclerosis of both lower extremities: CODE(S): I83.11 - Varicose veins of right lower extremity with inflammation; I83.12 - Varicose veins of left lower extremity with inflammation (9) Morbid obesity with BMI of 45.0-49.9, adult: CODE(S): E66.01 - Morbid (severe) obesity due to excess calories; Z68.42 - Body mass index [BMI] 45.0-49.9, adult (10) Hypertension: CODE(S): I10 - Essential (primary) hypertension QUALIFIERS: Hypertension type: primary hypertension Qualified Code(s): I10 - Essential (primary) hypertension PLAN: Plan Wounds are healed patient may be discharged from the wound center he can follow- up as needed. Still needs to make an appoint with Dr. Duvall about his legs because he will continue getting these blisters and opening.
--- NOTE | 2025-01-14 12:57 | WC ---
PHOTO-LEFT LATERAL LE 01/14/25
== END 2025-02-03 15:45 | disposition home or self-care (01) ==
LOC: WC 08:15
PROVIDERS: PCP Internal Medicine; Referring Provider Physician Assistant Medical; Visit Provider Nurse Practitioner
DX: I83.028 Varicose veins of left lower extremity with ulcer other part of lower leg (principal); L97.821 Non-pressure chronic ulcer of other part of left lower leg limited to breakdown of skin; R60.0 Localized edema; E66.9 Obesity, unspecified; I87.2 Venous insufficiency (chronic) (peripheral); L60.0 Ingrowing nail
CPT/HCPCS: 11042; 11045; 99212; 99213; G0463